=== PATIENT | female | born 1990 | race Caucasian/White ===

== ENCOUNTER 2022-03-29 10:09 | Outpatient (REF) | payer OTHER, SELFPAY ==
[2022-03-29 10:54] LABS: Hematocrit 38.7 % (37.0-47.0); Hemoglobin 12.8 g/dl (12.0-16.0); Mean Corpuscular HGB Conc 33.1 g/dl (31.0-35.0); Mean Corpuscular Volume 96.8 fL (80.0-98.0); Mean Platelet Volume 10.3 fL (9.4-12.3); Platelet Count 318 X10*3/uL (160-400); Red Cell Distribution Width 12.8 % (11.0-16.0); White Blood Count 8.4 X10*3/uL (4.8-10.8)
[2022-03-29 11:25] LABS: Alanine Aminotransferase 9 U/L (0-31); Albumin Level 4.4 g/dL (3.5-5.0); Alkaline Phosphatase 74 U/L (39-117); Anion Gap 13 (12-20); Aspartate Amino Transferase 15 U/L (5-31); Blood Urea Nitrogen 9 mg/dL (9-16); Calcium 9.9 mg/dL (8.4-10.2); Carbon Dioxide 26 mmol/L (22-29); Chloride 106 mmol/L (96-108); Cholesterol 170 mg/dL; Estimated Glomerular Filt Rate > 60; Glucose Fasting 92 mg/dL (60-99); HDL Cholesterol 38 mg/dL; LDL Cholesterol Calculated 117 mg/dl; Potassium 4.7 mmol/L (3.3-5.1); Sodium 140 mmol/L (135-145); Triglycerides 77 mg/dL
[2022-03-29 11:47] LABS: TSH reflex Free T4 1.55 uIU/mL (0.32-4.0)
== END 2022-03-29 10:10 | disposition home or self-care (01) ==
LOC: HO.LAB 10:09
PROVIDERS: Visit Provider Nurse Practitioner Family
DX: F32.A Depression, unspecified (principal); F41.9 Anxiety disorder, unspecified; E78.00 Pure hypercholesterolemia, unspecified; Z76.89 Persons encountering health services in other specified circumstances
CPT/HCPCS: 36415; 80053; 80061; 84443; 85027

== ENCOUNTER 2023-03-22 08:02 | Outpatient (REF) | payer OTHER, SELFPAY ==
[2023-03-22 11:55] LABS: Appearance Urine Clear; Color Urine Yellow; Glucose Urine UA Negative (Negative); Leukocyte Esterase Urine Small (1+) (Negative); Nitrite Urine Negative (Negative); PH 6.5 (5.0-9.0); UMIC TRIGGER UACC YES; Urine Blood Negative (Negative); Urine Ketones Negative (Negative); Urine Protein Negative (Neg-Trace)
[2023-03-22 11:58] LABS: Hematocrit 38.7 % (37.0-47.0); Hemoglobin 12.5 g/dl (12.0-16.0); Mean Corpuscular HGB Conc 32.3 g/dl (31.0-35.0); Mean Corpuscular Hemoglobin 31.2 pg (27.0-33.0); Mean Corpuscular Volume 96.5 fL (80.0-98.0); Mean Platelet Volume 10.4 fL (9.4-12.3); Platelet Count 378 X10*3/uL (160-400); Red Blood Count 4.01 X10*6/uL (4.20-5.50); Red Cell Distribution Width 12.7 % (11.0-16.0); White Blood Count 7.5 X10*3/uL (4.8-10.8)
[2023-03-22 12:04] LABS: Bacteria Urine None Seen (None Seen); Hyaline Casts Urine 0-2 /LPF (0-2); RBC Urine 0-2 /HPF (0-2); Squamous Epithelial Cell Urine 0-2 /HPF (0-2); UACC Culture Trigger YES; WBC Urine 0-5 /HPF (0-5)
[2023-03-22 12:36] LABS: Alanine Aminotransferase 52 U/L (0-31); Albumin Level 4.1 g/dL (3.5-5.0); Alkaline Phosphatase 87 U/L (39-117); Anion Gap 10 (12-20); Aspartate Amino Transferase 27 U/L (5-31); Bilirubin Total 0.7 mg/dL (0.0-1.0); Blood Urea Nitrogen 7 mg/dL (9-16); Calcium 9.6 mg/dL (8.4-10.2); Carbon Dioxide 27 mmol/L (22-29); Chloride 107 mmol/L (96-108); Estimated Glomerular Filt Rate > 60; Glucose Fasting 94 mg/dL (60-99); Potassium 4.3 mmol/L (3.3-5.1); Sodium 140 mmol/L (135-145); TSH reflex Free T4 1.93 uIU/mL (0.32-4.0); Total Protein 6.5 g/dL (6.5-8.0)
== END 2023-03-22 08:03 | disposition home or self-care (01) ==
LOC: HO.HMGCLDS 08:02
PROVIDERS: PCP Physician Assistant; Visit Provider Physician Assistant
DX: Z13.1 Encounter for screening for diabetes mellitus (principal); E66.09 Other obesity due to excess calories; Z68.36 Body mass index [BMI] 36.0-36.9, adult; R30.0 Dysuria; E66.9 Obesity, unspecified; F32.A Depression, unspecified; R53.83 Other fatigue
CPT/HCPCS: 36415; 80053; 81001; 84443; 85027; 87086

== ENCOUNTER 2023-04-01 09:44 | Outpatient (REF) | payer OTHER, SELFPAY ==
[2023-04-01 11:44] LABS: Alanine Aminotransferase 12 U/L (0-31); Alkaline Phosphatase 81 U/L (39-117); Aspartate Amino Transferase 12 U/L (5-31); Bilirubin Direct 0.2 mg/dL (0.0-0.5); Bilirubin Total 0.7 mg/dL (0.0-1.0); Total Protein 6.4 g/dL (6.5-8.0)
== END 2023-04-01 09:45 | disposition home or self-care (01) ==
LOC: HO.HMGCLDS 09:44
PROVIDERS: PCP Physician Assistant; Visit Provider Physician Assistant
DX: R79.89 Other specified abnormal findings of blood chemistry (principal)
CPT/HCPCS: 36415; 80076

== ENCOUNTER 2024-01-01 14:02 | Outpatient (AMB) | payer OTHER, SELFPAY ==
[2024-01-01 14:05] VITALS: BP 112/70; PULSE 75; O2SAT 98; BMI 36.6
--- NOTE | 2024-01-01 14:05 | MHC.PC.OV ---
Vital Signs 01/01/24 14:05 Height 5 ft 7.5 in Weight 237 lb 8 oz BMI 36.6 BP 112/70 Blood Pressure Location Lt brachial Position Sitting Pulse 75 Pulse Source Pulse Oximeter Pulse Oximetry (%) 98 Oxygen Delivery Method Room Air Intake Visit Reasons: Medication follow up College Teacher Required: No Accompanied by: Self / Same As Patient Is last menstrual period known: Yes Last menstrual period: 12/23/23 Allergies hydrocodone Adverse Reaction (Intermediate, Verified 01/01/24 14:23) Upset stomach Medication List - Last Reconciled 01/01/24 by Cade Robledo PA-C bupropion HCl (Wellbutrin XL) 300 mg PO QAM 30 days buspirone 15 mg PO DAILY PRN Tobacco use date assessed: 01/01/24 Dental Screening Dental Screen Date: 01/01/24 Did you have a dental visit in the last 12 months?: Yes Did you have a dental problem in the last 6 months where you did not have access to dental care?: No Was dental information given to patient?: Patient has dentist HPI Medication follow up HPI Details Patient is a 33-year-old female here today for a follow-up visit. Patient has a past medical history significant for anxiety, major depressive disorder, obesity, endometriosis. Concern--> patient reports increase pelvic pain and decreased menstruation over last several months. She is concerned about this and would like to establish with a OBGYN here in [place]. She reports she has been diagnosed with endometriosis many years ago after she had her Essure removed. .. MDD/ XIOMARA: Patient continues on Wellbutrin and buspirone which have been very helpful for her mental health. Obesity: She does understand her BMI is over 30 will work on being more physically active and adapting to better eating habits to reduce her weight. 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 1. Little interest or pleasure in doing things: not at all 2. Feeling down, depressed, or hopeless: not at all 3. Trouble falling or staying asleep, or sleeping too much: not at all 4. Feeling tired or having little energy: not at all 5. Poor appetite or overeating: not at all 6. Feeling bad about yourself - or that you are a failure or have let yourself or your family down: not at all 7. Trouble concentrating on things, such as reading the newspaper or watching television: not at all 8. Moving or speaking so slowly that other people could have noticed. Or the opposite - being so fidgety or restless that you have been moving around a lot more than usual: not at all 9. Thoughts that you would be better off or of hurting yourself in some way: not at all Total score: 0 Depression Screening Interpretation: Negative Depression Screening Done: Yes 46748 - PHQ-9 Billing: Yes Source: Developed by Drs. Isaac Hale, Teagan De La Garza, Zan Herrera and colleagues, with an educational ricky from [employer]. Thrive Questionnaire Date Thrive assessed: 01/01/24 I am a: Patient What is your living situation today?: I have a steady place to live Within the past 12 months, did the food you bought not last and you didn't have the money to get more?: Never true Within the past 12 months, did you worry whether your food would run out before you got money to buy more?: Never true Do you have trouble paying for medicines?: No Do you have trouble getting transportation to medical appointments?: No Do you have trouble paying your heating and electricity bill?: No Do you have trouble taking care of your child, family member or friend?: No Do you have trouble with day-to-day activities such as bathing, preparing meals, shopping, managing finances, etc.?: No Are you currently unemployed and looking for a job?: No Are you interested in more education?: No Please select the resources that you would like help with: None Currently or been in a relationship where the following occur: no concerns reported THRIVE Score: 0 AUDIT C Alcohol Use Questionnaire (AUDIT-C) 1. How often do you have a drink containing alcohol?: Monthly or less 2. How many drinks containing alcohol do you have on a typical day when you are drinking?: 1 or 2 3. How often do you have six or more drinks on one occasion?: Never Total Score: 1 XIOMARA-7 AMB Questionnaire XIOMARA-7 Date XIOMARA - 7 assessed: 01/01/24 Feeling nervous, anxious, or on edge: 0 = Not at all Not being able to stop or control worryin = Not at all Worrying too much about different things: 0 = Not at all Trouble relaxin = Not at all Being so restless that it is hard to sit still: 0 = Not at all Becoming easily annoyed or irritable: 0 = Not at all Feeling afraid as if something awful might happen: 0 = Not at all Total XIOMARA-7 score (0-4 normal; 5-9 mild; 10-14 moderate; 15-21 severe): 0 Source: Developed by Drs. Isaac Hale, Teagan De La Garza, Zan Herrera and colleagues, with an educational ricky from [employer]. XIOMARA-7 Assessment Billing XIOMARA-7 Assessment Tool: XIOMARA-7 Assessment 45528 Review of Systems Const Denies headache(s) Eyes Denies loss of vision ENT Denies vertigo, Denies dizziness, Denies headache(s) and Denies sore throat Card Denies chest pain, Denies leg edema and Denies lightheadedness Resp Denies cough, Denies hemoptysis and Denies wheezing GI Denies abdominal pain, Denies melena, Denies constipation, Denies diarrhea and Denies vomiting Denies urinary frequency, Denies dysuria, Reports pelvic pain and Denies urinary urgency Musc Denies arthralgias, Denies joint swelling, Denies numbness and Denies tingling Neuro Denies Abnormal speech present, Denies behavioral changes, Denies vertigo, Denies dizziness, Denies headache(s), Denies loss of vision, Denies memory loss, Denies numbness and Denies tingling Psych Denies anxiety, Denies behavioral changes, Denies depression, Denies memory loss and Denies panic attacks Howard/Lymph Denies easy bleeding and Denies easy bruising Aller/Immun Denies wheezing Physical exam (Primary Care) Vital Signs: Last Vital Signs Pulse 75 01/01/24 14:05 BP 112/70 01/01/24 14:05 Pulse Ox 98 01/01/24 14:05 Oxygen Delivery Method Room Air 01/01/24 14:05 BMI result Body Mass Index 36.6 BMI Assessment/Plan discussion: High Tobacco/Smoking Status: Tobacco use Status Tobacco use date assessed 01/01/24 01/01/24 14:23 Patient Tobacco Use Status Former Tobacco user 01/01/24 14:06 e-Cigarette/Vaping Use Never Used 01/01/24 14:06 PHQ-9: PHQ-9 Score PHQ-9: Total score 0 01/01/24 14:34 Depression Screening Interpretation: Negative Thrive Assessment: Date of Thrive Assessment Date Thrive assessed 01/01/24 01/01/24 14:24 Currently or been in a relationship where the following occur: no concerns reported Const Other: Obese General: healthy appearing, no acute distress, alert and awake Nutritional Appearance: well nourished Orientation/consciousness: oriented to person, oriented to place and oriented to time HENMT Ears: TM's normal bilaterally General nose exam: Normal nasal mucous membranes and turbinates present Eyes Conjunctivae: conjunctivae normal Sclerae: sclerae normal Pupils: Equal, round and reactive pupils present Neck Neck: Yes no lymphadenopathy and Yes no JVD Thyroid: Thyroid normal Carotids: no bruits Resp Effort & Inspection: normal respiratory effort and not tachypneic Auscultation: no crackles, no rales, no rhonchi and no wheezes Cardio Rate: regular rate Rhythm: regular rhythm Heart sounds: no murmurs and normal S1 and S2 GI Palpation (GI): Soft to palpation, nontender, no hepatomegaly and no splenomegaly Auscultation: normal bowel sounds Skin General skin exam: no rashes or lesions noted and dry skin Neuro General: oriented to person, oriented to place and oriented to time Cranial nerves: Yes Equal, round and reactive pupils present Speech: No Abnormal speech present Gait exam (Neuro): Normal gait present Motor exam (neuro): no tremor noted Extrem Right upper extremity: full ROM Left upper extremity: full ROM Right lower extremity: full ROM; no edema Left lower extremity: full ROM; no edema Psych Mental Status: mental status grossly normal Speech and movement: Normal speech and movement present Affect: normal affect Attitude: cooperative Thought process: Normal thought process present Assessment and Plan Assessment & Plan (1) Endometriosis: Code(s): N80.9 - Endometriosis, unspecified Plan: Reports she was diagnosed with endometriosis many years ago after having her Essure removed. Reports recently having decreased menstruation and pelvic plain as of lately. She would like to see an new OBGYN here in [place] (2) Obese: Code(s): E66.9 - Obesity, unspecified Qualifiers: Body mass index: BMI 36.0-36.9 Obesity classification: adult class 2 (BMI 35 - 39.9) Obesity type: due to excess calories Serious obesity comorbidity presence: without serious comorbidity Qualified Code(s): E66.09 - Other obesity due to excess calories; Z68.36 - Body mass index [BMI] 36.0-36.9, adult Plan: Patient does understand her BMI is above 30 and will work on being more physically active and adapt to better eating habits to reduce her weight (3) MDD (major depressive disorder), recurrent episode, moderate: Code(s): F33.1 - Major depressive disorder, recurrent, moderate Plan: Patient's depression well controlled with current medication. (4) XIOMARA (generalized anxiety disorder): Code(s): F41.1 - Generalized anxiety disorder Plan: Patient reports her anxiety has been well controlled with current medication. (5) Pelvic pain: Code(s): R10.2 - Pelvic and perineal pain Plan: Above may be related to endometriosis. Orders: Orders Complete Blood Count no Diff 01/01/24 N80.9 - Endometriosis, unspecified, R10.2 - Pelvic and perineal pain Comprehensive [place]. Panel Fast 01/01/24 Z13.1 - Encounter for screening for diabetes mellitus Referrals BUTCHER'S ASSISTANT Referral N80.9 - Endometriosis, unspecified Coding Level of Care Code Est Pt Level 4 (55744) Diagnoses Endometriosis N80.9 Class 2 obesity due to excess calories without serious comorbidity with body mass index (BMI) of 36.0 to 36.9 in adult E66.09; Z68.36 Body mass index: BMI 36.0-36.9 Obesity classification: adult class 2 (BMI 35 - 39.9) Obesity type: due to excess calories Serious obesity comorbidity presence: without serious comorbidity MDD (major depressive disorder), recurrent episode, moderate F33.1 XIOMARA (generalized anxiety disorder) F41.1 Pelvic pain R10.2 Additional Codes XIOMARA-7 Assessment Billing - XIOMARA-7 Assessment Tool: XIOMARA-7 Assessment [id number] ([id number])
== END 2024-01-01 14:39 | disposition home or self-care (01) ==
PROVIDERS: PCP Physician Assistant; Visit Provider Physician Assistant
DX: F33.1 Major depressive disorder, recurrent, moderate (principal); N80.9 Endometriosis, unspecified; E66.09 Other obesity due to excess calories; Z68.36 Body mass index [BMI] 36.0-36.9, adult; F41.1 Generalized anxiety disorder; R10.2 Pelvic and perineal pain
CPT/HCPCS: 99214

== ENCOUNTER 2024-02-12 08:43 | Outpatient (AMB) | payer OTHER, SELFPAY ==
--- NOTE | 2024-02-12 08:53 | MHC.OFFVIS ---
Intake Vital Signs 02/12/24 08:54 Height 5 ft 7.5 in Weight 235 lb 14.314 oz BMI 36.4 BP 120/78 Intake Visit Reasons: endometriosis/PCP Referral Intake Note: painful menses Care Program Director Required: No Information Interpreted: non-clinical & clinical Lieutenant Ballistics: Lieutenant Ballistics Present (Liana TITUS) Accompanied by: Spouse Allergies hydrocodone Adverse Reaction (Intermediate, Verified 02/12/24 08:56) Upset stomach Is last menstrual period known: Yes Last menstrual period: 01/28/24 HPI HPI Comments History of Present Illness Details Presenting complaining of 11 year history of left lower quadrant pain constant most of the day almost every day, exacerbates 2 weeks prior to the menstrual cycles and gets better afterwards. The pain started few months after Essure procedure in 2012, the patient was prescribed continuous control pills for 6 months but was taken off of it because of headaches, of note there was no improvement in the pelvic pain. CT scan done in an outside facility showed a left adnexal linear hyperechoic echogenic part next to the adnexa will be part of Essure device versus adnexal calcification. The patient has been having nausea continuously and was sent to GI by her OBGYN had an upper and lower endoscopy and the workup was negative [facility] Medical History Endometriosis Sigmoid diverticulosis Surgical History No pertinent past surgical history Family History Paternal Grandmother Colon cancer Social History Household Members: Spouse and Children Housing: House (town house) Alcohol intake: current Alcohol intake frequency: holidays/special occasions only Patient Tobacco Use Status: Former Tobacco user Quit Date: 13 years ago e-Cigarette/Vaping Use: Never Used Second Hand Smoke Exposure: No service: No 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) Sexual orientation: Straight/Heterosexual Gender identity: Female Cognitive needs: No Hearing needs: No Vision needs: Yes (glasses) Female Reproductive History Menstrual Date of last menstrual period: 01/28/24 control method: none Total pregnancies: 2 Full term: 2 Number of Living Children: 2 Review of Systems Const All systems reviewed & are unremarkable except as noted in HPI and below Physical Exam Vital Signs: Last Vital Signs BP 120/78 02/12/24 08:54 BMI result Body Mass Index 36.4 GI Inspection: Yes normal to inspection Palpation (GI): Soft to palpation and nontender General: Yes no CVA tenderness External Female Exam: normal external appearance and normal appearance of the urethra Speculum Exam - Vagina: normal appearance of the vagina, normal palpation, no lesions and no masses Speculum Exam - Cervix: normal appearance of the cervix, normal palpation, no lesions, no masses and nontender Bimanual exam- vagina & uterus: normal bimanual exam, normal palpation, uterine size normal, normal palpation, uterine shape normal, No Cervical tenderness present and non-tender Bimanual Exam- Adnexa, other: normal adnexae Back/Spine/Pelvis Back: no CVA tenderness Assessment & Plan Assessment & Plan (1) Pelvic pain: Comment: History of Essure in 2012 Possible endometriosis Code(s): R10.2 - Pelvic and perineal pain Plan: Urine dip and test done in the office were both negative. GC and chlamydia taken and CT scan of pelvis with and without contrast ordered. Discussed with the patient the differential diagnosis of pelvic pain including but not limited to adnexal, uterine masses, pelvic infections (PID), GI the (Irritable bowel syndrome, diverticulitis, others), musculoskeletal, myofascial pain abdominal wall , adhesions, endometriosis, Essure related pain, or psychological and others causes. Instructed the patient to schedule follow-up appointment in 2 weeks. All questions answered, the patient verbalized understanding Orders: Orders CT NG by PCR Today R10.2 - Pelvic and perineal pain CT abdomen pelvis wo/w IV con Today R10.2 - Pelvic and perineal pain Coding Level of Care Code New Pt Level 3 (40428) Diagnoses Pelvic pain R10.2
[2024-02-12 08:54] VITALS: BP 120/78; BMI 36.4
== END 2024-02-12 09:28 | disposition home or self-care (01) ==
PROVIDERS: PCP Physician Assistant; Visit Provider Obstetrics & Gynecology
DX: R10.2 Pelvic and perineal pain (principal); Z32.02 Encounter for pregnancy test, result negative
CPT/HCPCS: 99203

== ENCOUNTER 2024-02-12 08:43 | Outpatient (REF) | payer OTHER, SELFPAY ==
[2024-02-12 15:04] LABS: CT PCR NOT DETECTED (Not Detect.); NG PCR NOT DETECTED (Not Detect.)
== END 2024-02-12 08:44 | disposition home or self-care (01) ==
LOC: HO.LNP 08:43
PROVIDERS: PCP Physician Assistant; Visit Provider Obstetrics & Gynecology
DX: R10.2 Pelvic and perineal pain (principal)
CPT/HCPCS: 0353U; 81002; 81025; 99202

== ENCOUNTER 2024-02-19 13:57 | Outpatient (REF) | payer OTHER, SELFPAY | END 2024-02-19 13:58 | disposition home or self-care (01) | LOC: HO.LNP 13:57 | PROVIDERS: Visit Provider Obstetrics & Gynecology | DX: Z13.89 Encounter for screening for other disorder (principal) ==

== ENCOUNTER 2024-03-24 07:37 | Outpatient (REF) | payer OTHER, SELFPAY ==
[2024-03-24 10:50] LABS: Blood Urea Nitrogen 8 mg/dL (9-16); Estimated Glomerular Filt Rate > 60
== END 2024-03-24 07:38 | disposition home or self-care (01) ==
LOC: HO.HMGCLDS 07:37
PROVIDERS: PCP Physician Assistant; Visit Provider Obstetrics & Gynecology
DX: R10.2 Pelvic and perineal pain (principal)
CPT/HCPCS: 36415; 82565; 84520

== ENCOUNTER 2024-04-02 13:50 | Outpatient (REF) | payer OTHER, SELFPAY ==
--- NOTE | ~2024-04-02 | CT_ITS ---
EXAMINATION: CT ABDOMEN AND PELVIS WITH CONTRAST CLINICAL INFORMATION: Pelvic and perineal pain. COMPARISON: None available. TECHNIQUE: Multidetector volumetric images were obtained from the superior aspect of the liver through the pubic symphysis following administration 85 mL of Omnipaque 350 intravenous contrast. Sagittal and coronal reformatted images were obtained on the technologist's workstation. Oral contrast: Yes This CT examination was performed using dose optimization techniques as appropriate, variously including the following: *Automated exposure control *Adjustment of mA and/or kV according to patient size (this includes techniques or standardized protocols for targeted exams where dose is matched to indication/reason for exam; i.e. extremities or head) *Use of iterative reconstruction technique DLP: 816 mGy-cm FINDINGS: LUNG BASES: The visualized lung bases are unremarkable. LIVER, GALLBLADDER, AND BILIARY TREE: The liver is normal in size, shape, and attenuation. No focal hepatic lesion or biliary ductal dilatation is present. The gallbladder is unremarkable with no evidence of radiopaque gallstones, gallbladder wall thickening, or obvious pericholecystic inflammatory changes. PANCREAS: No discrete pancreatic mass or pancreatic ductal dilatation. SPLEEN: Normal. ADRENAL GLANDS: No adrenal mass. KIDNEYS AND URETERS: The kidneys are normal in size, shape, and attenuation. No hydronephrosis, hydroureter, or calculi seen. No perinephric stranding. Exophytic simple cyst from the lower pole left kidney for which no imaging follow-up is recommended. BLADDER: Unremarkable. GASTROINTESTINAL TRACT: The small and large bowel are normal in caliber. The appendix appears normal. Moderate sigmoid diverticulosis. No evidence of acute diverticulitis. ABDOMINAL WALL: Small fat-containing umbilical hernia. LYMPH NODES: No lymphadenopathy. VASCULAR: No aortic aneurysm. PELVIC VISCERA: Bilaterally Essure devices. OSSEOUS STRUCTURES: No suspicious osseous lesions. CT/CT abdomen pelvis w IV con IMPRESSION: Moderate sigmoid colonic diverticulosis without evidence of acute diverticulitis.
[2024-04-02] MEDS: iohexoL 350 MG/ML 100 ML INFUS..BTL 85 ML IV (16:44)
[2024-04-02] MEDS: Barium Sulfate Oral (Vanilla) 450 ML ORAL.SUSP 900 ML PO (16:45)
== END 2024-04-02 13:51 | disposition home or self-care (01) ==
LOC: HO.CT 13:50
PROVIDERS: PCP Physician Assistant; Visit Provider Obstetrics & Gynecology
DX: R10.2 Pelvic and perineal pain (principal)
CPT/HCPCS: 74177; Q9967

== ENCOUNTER 2024-04-22 09:09 | Outpatient (AMB) | payer OTHER, SELFPAY ==
--- NOTE | 2024-04-22 09:21 | MHC.OFFVIS ---
Vital Signs 04/22/24 09:23 Height 5 ft 7.5 in Weight 235 lb 14.314 oz BMI 36.4 BP 120/70 Intake Visit Reasons: ct scan results Contract Project Manager Required: No Information Interpreted: non-clinical & clinical Accompanied by: Spouse Allergies hydrocodone Adverse Reaction (Intermediate, Verified 04/22/24 09:27) Upset stomach Is last menstrual period known: Yes Last menstrual period: 04/22/24 HPI Comments Details: Presenting for follow-up post CT scan . The patient gives a history of 11 year history of left lower quadrant pain constant most of the day almost every day, it exacerbates 2 weeks prior to the menstrual cycles and gets better afterwards. The pain started few months after Essure procedure in 2012, the patient was prescribed continuous control pills for 6 months but was taken off of it because of headaches,; Of note, there was no improvement in the pelvic pain. CT scan done in an outside facility showed a left adnexal linear hyperechoic echogenic part next to the adnexa ? part of Essure device versus adnexal calcification. The patient has been having nausea continuously and was sent to GI had an upper and lower endoscopy and the workup was negative. CT scan done recently showed the following: PELVIC VISCERA: Bilaterally Essure devices. IMPRESSION: Moderate sigmoid colonic diverticulosis without evidence of acute diverticulitis. 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) Sexual orientation: Straight/Heterosexual Gender identity: Female Cognitive needs: No Hearing needs: No Vision needs: Yes (glasses) Female Reproductive History Menstrual Date of last menstrual period: 04/22/24 Review of Systems Const All systems reviewed & are unremarkable except as noted in HPI and below Reports as per HPI and Reports no additional complaints GI Reports no additional complaints Reports no additional complaints Physical Exam Vital Signs: Last Vital Signs BP 120/70 04/22/24 09:23 BMI result Body Mass Index 36.4 Assessment & Plan Assessment & Plan (1) Pelvic pain: Comment: History of Essure in 2012 Code(s): R10.2 - Pelvic and perineal pain Category: Medical Plan: Discussed with the patient the findings on CT scan showing bilateral Essure in place with no evidence of perforation or displacement. Discussed with the patient that pelvic pain has been reported post Essure insertion in around 4% of patients even with no evidence of displacement or perforation. Options of treatment for Essure removal include laparoscopic bilateral salpingectomy, salpingostomy , cornuectomy, or hysterectomy. Will refer to [facility], at a tertiary care center where more resources and higher level of care is available and needed in this patient's clinical situation. All questions answered, the patient verbalized understanding. Instructed the patient to call our office back in case a referral appointment is not scheduled, missed or canceled so that we will assist on rescheduling another appointment, the patient verbalized understanding agreed with the plan. Coding Level of Care Code Est Pt Level 3 (05231) Diagnoses Pelvic pain R10.2
[2024-04-22 09:23] VITALS: BP 120/70; BMI 36.4
== END 2024-04-22 09:42 | disposition home or self-care (01) ==
LOC: HO.HWS 09:09
PROVIDERS: PCP Physician Assistant; Visit Provider Obstetrics & Gynecology
DX: R10.2 Pelvic and perineal pain (principal)
CPT/HCPCS: 99213

== ENCOUNTER → 2024-04-22 09:09 | Outpatient (BNVA) | payer OTHER, SELFPAY | PROVIDERS: PCP Physician Assistant; Visit Provider Obstetrics & Gynecology | DX: R10.2 Pelvic and perineal pain (principal) | CPT/HCPCS: 99212 ==

== ENCOUNTER 2024-05-20 14:17 | Outpatient (AMB) | payer OTHER, SELFPAY ==
[2024-05-20 14:30] VITALS: BP 106/76; PULSE 80; O2SAT 96; BMI 37.7
--- NOTE | 2024-05-20 14:30 | MHC.PC.OV ---
Vital Signs 05/20/24 14:30 Height 5 ft 7.5 in Weight 244 lb 2 oz BMI 37.7 BP 106/76 Blood Pressure Location Lt brachial Position Sitting Pulse 80 Pulse Source Pulse Oximeter Pulse Oximetry (%) 96 Oxygen Delivery Method Room Air Intake Visit Reasons: PE Intake Note: Patient is here today for a physical. 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 Patient has a past medical history significant for anxiety, major depressive disorder, obesity, endometriosis. Concern--> continues to have chronic pelvic pain. Has seen [place] court operations clerk and has been referred to [facility] for essure removal. She does report during her menstrual periods she does get very nauseous and would like a medication to use as needed for nausea. .. MDD/ XIOMARA: Patient continues on Wellbutrin and buspirone which have been very helpful for her mental health. Obesity: She does understand her BMI is over 30 will work on being more physically active and adapting to better eating habits to reduce her weight. Vaccines: UTD woth COVID vaccine, Declines flu , Need Tdap Guest Services Coordinator: Followed by court operations clerk here in [place]- Has been reffered to [facility]. 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 Isaac Hale, Teagan De La Garza, Zan Herrera and colleagues, with an educational ricky from [employer]. Review of Systems Const Denies body aches, Denies chills, Denies excessive sweating, Denies fatigue, Denies fever(s) and Denies headache(s) Eyes Denies blurry vision ENT Denies dysphagia, Denies vertigo, Denies dizziness, Denies headache(s), Denies hearing loss and Denies tinnitus Card Denies chest pain, Denies chest pain with activity, Denies syncope, Denies irregular heart rhythm and Denies dyspnea Resp Denies chest congestion, Denies cough, Denies hemoptysis, Denies dyspnea and Denies wheezing GI Denies abdominal pain, Denies melena, Denies hematochezia, Denies coffee ground emesis, Denies dysphagia, Denies diarrhea, Denies nausea and Denies vomiting Details: + pelvic pain Denies urinary frequency, Denies dysuria, Reports pelvic pain, Denies urinary hesitancy and Denies urinary urgency Musc Denies arthralgias, Denies limited range of motion, Denies muscle cramps and Denies muscle weakness Skin/Breast Denies rash and Denies skin ulcer Neuro Denies Abnormal speech present, Denies confusion, Denies vertigo, Denies dizziness, Denies syncope, Denies headache(s), Denies memory loss and Denies seizure-like activity Psych Denies anxiety, Denies confusion, Denies depression, Denies memory loss, Denies panic attacks and Denies paranoia Endo Denies excessive sweating, Denies fatigue, Denies flushing, Denies polydipsia and Denies polyuria Aller/Immun Denies wheezing Physical exam (Primary Care) Vital Signs: Last Vital Signs Pulse 80 05/20/24 14:30 BP 106/76 05/20/24 14:30 Pulse Ox 96 05/20/24 14:30 Oxygen Delivery Method Room Air 05/20/24 14:30 BMI result Body Mass Index 37.7 BMI Assessment/Plan discussion: High BMI High, discussed plan: lifestyle, weight reduction, dietary and physical activity Tobacco/Smoking Status: Tobacco use Status Tobacco use date assessed 01/01/24 05/20/24 14:31 Patient Tobacco Use Status Former Tobacco user 05/20/24 14:47 e-Cigarette/Vaping Use Never Used 05/20/24 14:47 Thrive Assessment: Date of Thrive Assessment Date Thrive assessed 01/01/24 05/20/24 14:31 Const General: cooperative, comfortable, no acute distress, alert and awake; No confusion Orientation/consciousness: oriented to person, oriented to place, patient oriented x3 and No confusion HENMT Head: Yes normocephalic Ears: external ears normal and TM's normal bilaterally Face and sinus: No sinus tenderness Mouth: Normal oral and palatal mucosa present and tongue normal Teeth and gingiva: dentition normal and gingiva normal Throat: Yes posterior oropharynx normal, Yes tonsils normal and Yes uvula midline Eyes Conjunctivae: conjunctivae normal Sclerae: sclerae normal Pupils: Equal, round and reactive pupils present EOM: EOMs intact bilaterally Direct Ophthalmoscopy: No no photophobia Neck Neck: Yes no lymphadenopathy, No tender and Yes no JVD Thyroid: Thyroid normal Carotids: no bruits Chest Chest palpation & inspection: no tenderness Resp Effort & Inspection: normal respiratory effort, no audible wheezes, not labored and no stridor Auscultation: no crackles, no rales, no rhonchi and no wheezes Cardio Jugular venous distension: no JVD Rate: regular rate, not bradycardic and not tachycardic Rhythm: regular rhythm Bruits: no carotid bruits Peripheral pulses: Peripheral pulses 2+ throughout GI Inspection: Yes normal to inspection, No abdominal wall ecchymosis and No visible herniation Palpation (GI): Soft to palpation, nontender, no guarding, not rigid and No hepatosplenomegaly present Auscultation: normoactive bowel sounds General: Yes no CVA tenderness Back/Spine/Pelvis Back: no CVA tenderness and No back tenderness Cervical Spine: cervical ROM normal Thoracic/Lumbar Spine: thoracic and lumbar spine normal to inspection, straight leg raise negative bilaterally, No thoraco-lumbar ROM limited and No lumbar spinal tenderness Skin Lesions: no lesions Rashes: no rashes Wounds: no wounds Neuro General: oriented to person, oriented to place, patient oriented x3, CN's II-XI intact bilaterally and No confusion Cranial nerves: Yes Equal, round and reactive pupils present and Yes Normal accommodation reflex present Cognition (Neuro): normal cognition Speech: No Abnormal speech present Gait exam (Neuro): Normal gait present Motor exam (neuro): 5/5 motor strength present throughout Extrem Right upper extremity: full ROM; no cyanosis Left upper extremity: full ROM; no cyanosis Right lower extremity: no edema Left lower extremity: no edema Psych Appearance: grossly normal Mental Status: mental status grossly normal Affect: normal affect Attitude: cooperative Thought process: Normal thought process present Assessment and Plan Assessment & Plan (1) Annual physical exam: Code(s): Z00.00 - Encounter for general adult medical examination without abnormal findings (2) Endometriosis: Code(s): N80.9 - Endometriosis, unspecified Plan: Reports she was diagnosed with endometriosis many years ago after having her Essure removed. . (3) Obese: Code(s): E66.9 - Obesity, unspecified Qualifiers: Body mass index: BMI 37.0-37.9 Obesity classification: adult class 2 (BMI 35 - 39.9) Obesity type: due to excess calories Serious obesity comorbidity presence: without serious comorbidity Qualified Code(s): E66.09 - Other obesity due to excess calories; Z68.37 - Body mass index [BMI] 37.0-37.9, adult Plan: Patient does understand her BMI is above 30 and will work on being more physically active and adapt to better eating habits to reduce her weight (4) MDD (major depressive disorder), recurrent episode, moderate: Code(s): F33.1 - Major depressive disorder, recurrent, moderate Plan: Patient's depression well controlled with current medication. (5) XIOMARA (generalized anxiety disorder): Code(s): F41.1 - Generalized anxiety disorder Plan: Patient reports her anxiety has been well controlled with current medication. (6) Pelvic pain: Comment: History of Essure in 2012 Code(s): R10.2 - Pelvic and perineal pain Plan: Above may be related to endometriosis. Has been referred to [facility] court operations clerk for possible Essure removal (7) Nausea: Code(s): R11.0 - Nausea Plan: She does report having nausea around her menses. Would like a antinausea medication to use as needed. Will send in ondansetron 8 mg to use on a p.r.n. basis Medications: New ondansetron 8 mg PO Q12H 10 days PRN 20 tabs 0RF nausea and vomiting R11.0 - Nausea Refilled buspirone 15 mg PO DAILY PRN 90 tabs 1RF anxiety F41.1 - Generalized anxiety disorder Coding Level of Care Code Est Pt Prev Care 18-39y(83213) Diagnoses Annual physical exam Z00.00 Endometriosis N80.9 Class 2 obesity due to excess calories without serious comorbidity with body mass index (BMI) of 37.0 to 37.9 in adult E66.09; Z68.37 Body mass index: BMI 37.0-37.9 Obesity classification: adult class 2 (BMI 35 - 39.9) Obesity type: due to excess calories Serious obesity comorbidity presence: without serious comorbidity MDD (major depressive disorder), recurrent episode, moderate F33.1 XIOMARA (generalized anxiety disorder) F41.1 Pelvic pain R10.2 Nausea R11.0
== END 2024-05-20 14:55 | disposition home or self-care (01) ==
PROVIDERS: PCP Physician Assistant; Visit Provider Physician Assistant
DX: Z00.00 Encounter for general adult medical examination without abnormal findings (principal); F33.1 Major depressive disorder, recurrent, moderate; Z68.37 Body mass index [BMI] 37.0-37.9, adult; E66.09 Other obesity due to excess calories; N80.9 Endometriosis, unspecified; F41.1 Generalized anxiety disorder; R10.2 Pelvic and perineal pain; R11.0 Nausea
CPT/HCPCS: 99395

== ENCOUNTER 2024-05-21 08:09 | Outpatient (REF) | payer OTHER, SELFPAY ==
[2024-05-21 11:44] LABS: Hematocrit 38.5 % (37.0-47.0); Hemoglobin 12.9 g/dl (12.0-16.0); Mean Corpuscular HGB Conc 33.5 g/dl (31.0-35.0); Mean Corpuscular Hemoglobin 32.4 pg (27.0-33.0); Mean Corpuscular Volume 96.7 fL (80.0-98.0); Mean Platelet Volume 10.1 fL (9.4-12.3); Platelet Count 363 X10*3/uL (160-400); Red Blood Count 3.98 X10*6/uL (4.20-5.50); Red Cell Distribution Width 13.1 % (11.0-16.0); White Blood Count 8.5 X10*3/uL (4.8-10.8)
[2024-05-21 12:03] LABS: Alanine Aminotransferase 15 U/L (0-31); Albumin Level 4.2 g/dL (3.5-5.0); Alkaline Phosphatase 86 U/L (39-117); Anion Gap 11 (12-20); Aspartate Amino Transferase 15 U/L (5-31); Bilirubin Total 0.6 mg/dL (0.0-1.0); Blood Urea Nitrogen 9 mg/dL (9-16); Calcium 9.6 mg/dL (8.4-10.2); Carbon Dioxide 26 mmol/L (22-29); Chloride 108 mmol/L (96-108); Estimated Glomerular Filt Rate > 60; Glucose Fasting 96 mg/dL (60-99); Potassium 4.2 mmol/L (3.3-5.1); Sodium 141 mmol/L (135-145); Total Protein 7.1 g/dL (6.5-8.0)
== END 2024-05-21 08:10 | disposition home or self-care (01) ==
LOC: HO.HMGCLDS 08:09
PROVIDERS: PCP Physician Assistant; Visit Provider Physician Assistant
DX: N80.9 Endometriosis, unspecified (principal); R10.2 Pelvic and perineal pain; Z13.1 Encounter for screening for diabetes mellitus
CPT/HCPCS: 36415; 80053; 85027

== ENCOUNTER 2024-12-28 10:55 | Outpatient (AMB) | payer OTHER, SELFPAY ==
[2024-12-28 11:13] VITALS: BP 104/78; BMI 38.0
--- NOTE | 2024-12-28 11:13 | A.OFFPC_ITS ---
Vital Signs 12/28/24 11:13 Height 5 ft 7.5 in Weight 246 lb BMI 38.0 BP 104/78 Blood Pressure Location Lt brachial Position Sitting Intake Visit Reasons: Med Review Intake Note: Patient is here for a medication review prescribed by Psychiatry and requires the [facility] program medical form to be completed. Primary Clinician Required: No Accompanied by: Self / Same As Patient Allergies hydrocodone Adverse Reaction (Intermediate, Verified 12/28/24 11:29) Upset stomach Medication List - Last Reconciled 12/28/24 by Cade Robledo PA-C bupropion HCl XL (Wellbutrin XL) 300 mg PO QAM 30 days buspirone 15 mg PO DAILY PRN clonidine HCl 0.2 mg PO BEDTIME gabapentin 300 mg PO TID ondansetron 8 mg PO Q12H PRN 10 days Tobacco use date assessed: 12/28/24 Dental Screening Dental Screen Date: 12/28/24 Did you have a dental visit in the last 12 months?: Yes Did you have a dental problem in the last 6 months where you did not have access to dental care?: No Was dental information given to patient?: Patient has dentist HPI Med Review HPI Details Patient is a 33-year-old female here today for a follow-up visit Patient has a past medical history significant for anxiety, major depressive disorder, obesity, endometriosis. She mentioned she will be possibly moving out of state due to reasons. Recently established care with a psychiatrist whom diagnosed her with ADHD and started gabapentin and clonidine. Unfortunately she has side effects to gabapentin and clonidine. She is interested in trying a new ADHD medication. Endometriosis: Has had a full hysterectomy with a partial oophorectomy. She reports she has been doing well as far as her pelvic pain though has noted some hormonal changes and will like hormones to be checked. .. MDD/ XIOMARA: Patient continues on Wellbutrin and buspirone which have been very helpful for her mental health. Obesity: She does understand her BMI is over 30 will work on being more physically active and adapting to better eating habits to reduce her weight. 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 1. Little interest or pleasure in doing things: not at all 2. Feeling down, depressed, or hopeless: not at all 3. Trouble falling or staying asleep, or sleeping too much: not at all 4. Feeling tired or having little energy: not at all 5. Poor appetite or overeating: not at all 6. Feeling bad about yourself - or that you are a failure or have let yourself or your family down: not at all 7. Trouble concentrating on things, such as reading the newspaper or watching television: not at all 8. Moving or speaking so slowly that other people could have noticed. Or the opposite - being so fidgety or restless that you have been moving around a lot more than usual: not at all 9. Thoughts that you would be better off or of hurting yourself in some way: not at all Total score: 0 Depression Screening Interpretation: Negative Depression Screening Done: Yes 75514 - PHQ-9 Billing: Yes Source: Developed by Drs. Isaac Hale, Teagan De La Garza, Zan Herrera and colleagues, with an educational ricky from [employer]. Thrive Questionnaire Date Thrive assessed: 12/28/24 I am a: Patient What is your living situation today?: I have a steady place to live Within the past 12 months, did the food you bought not last and you didn't have the money to get more?: Never true Within the past 12 months, did you worry whether your food would run out before you got money to buy more?: Never true Do you have trouble paying for medicines?: No Do you have trouble getting transportation to medical appointments?: No Do you have trouble paying your heating and electricity bill?: No Do you have trouble taking care of your child, family member or friend?: No Do you have trouble with day-to-day activities such as bathing, preparing meals, shopping, managing finances, etc.?: No Are you currently unemployed and looking for a job?: No Are you interested in more education?: No Please select the resources that you would like help with: None Currently or been in a relationship where the following occur: No concerns reported THRIVE Score: 0 AUDIT C Alcohol Use Questionnaire (AUDIT-C) 1. How often do you have a drink containing alcohol?: Monthly or less 2. How many drinks containing alcohol do you have on a typical day when you are drinking?: 1 or 2 3. How often do you have six or more drinks on one occasion?: Never Total Score: 1 XIOMARA-7 AMB Questionnaire XIOMARA-7 Date XIOMARA - 7 assessed: 12/28/24 Feeling nervous, anxious, or on edge: 2 = More than half the days Not being able to stop or control worryin = More than half the days Worrying too much about different things: 2 = More than half the days Trouble relaxin = Nearly every day Being so restless that it is hard to sit still: 2 = More than half the days Becoming easily annoyed or irritable: 1 = Several days Feeling afraid as if something awful might happen: 0 = Not at all Total XIOMARA-7 score (0-4 normal; 5-9 mild; 10-14 moderate; 15-21 severe): 12 Source: Developed by Drs. Isaac Hale, Teagan De La Garza, Zan Herrera and colleagues, with an educational ricky from [employer]. XIOMARA-7 Assessment Billing XIOMARA-7 Assessment Tool: XIOMARA-7 Assessment 83301 Review of Systems Const Denies headache(s) Eyes Denies loss of vision ENT Denies vertigo, Denies dizziness, Denies headache(s) and Denies sore throat Card Denies chest pain, Denies leg edema and Denies lightheadedness Resp Denies cough, Denies hemoptysis and Denies wheezing GI Denies abdominal pain, Denies melena, Denies constipation, Denies diarrhea and Denies vomiting Denies urinary frequency, Denies dysuria and Denies urinary urgency Musc Denies arthralgias, Denies joint swelling, Denies numbness and Denies tingling Neuro Denies Abnormal speech present, Denies behavioral changes, Denies vertigo, Polo es dizziness, Denies headache(s), Denies loss of vision, Denies memory loss, Denies numbness and Denies tingling Psych Denies anxiety, Denies behavioral changes, Denies depression, Denies memory loss and Denies panic attacks Howard/Lymph Denies easy bleeding and Denies easy bruising Aller/Immun Denies wheezing Physical exam (Primary Care) Vital Signs: Last Vital Signs BP 104/78 12/28/24 11:13 BMI result Body Mass Index 38.0 Tobacco/Smoking Status: Tobacco use Status Tobacco use date assessed 12/28/24 12/28/24 11:26 Patient Tobacco Use Status Former Tobacco user 12/28/24 11:19 e-Cigarette/Vaping Use Never Used 12/28/24 11:19 PHQ-9: PHQ-9 Score PHQ-9: Total score 0 12/28/24 14:21 Depression Screening Interpretation: Negative Thrive Assessment: Date of Thrive Assessment Date Thrive assessed 12/28/24 12/28/24 11:19 Currently or been in a relationship where the following occur: No concerns reported Const General: healthy appearing, no acute distress, alert and awake Nutritional Appearance: well nourished Orientation/consciousness: oriented to person, oriented to place and oriented to time HENMT Ears: TM's normal bilaterally General nose exam: Normal nasal mucous membranes and turbinates present Eyes Conjunctivae: conjunctivae normal Sclerae: sclerae normal Pupils: Equal, round and reactive pupils present Neck Neck: Yes no lymphadenopathy and Yes no JVD Thyroid: Thyroid normal Carotids: no bruits Resp Effort & Inspection: normal respiratory effort and not tachypneic Auscultation: no crackles, no rales, no rhonchi and no wheezes Cardio Rate: regular rate Rhythm: regular rhythm Heart sounds: no murmurs and normal S1 and S2 GI Palpation (GI): Soft to palpation, nontender, no hepatomegaly and no splenomegaly Auscultation: normal bowel sounds Skin General skin exam: no rashes or lesions noted and dry skin Neuro General: oriented to person, oriented to place and oriented to time Cranial nerves: Yes Equal, round and reactive pupils present Speech: No Abnormal speech present Gait exam (Neuro): Normal gait present Motor exam (neuro): no tremor noted Extrem Right upper extremity: full ROM Left upper extremity: full ROM Right lower extremity: full ROM; no edema Left lower extremity: full ROM; no edema Psych Mental Status: mental status grossly normal Speech and movement: Normal speech and movement present Affect: normal affect Attitude: cooperative Thought process: Normal thought process present Office Procedures Flu Questionnaire Does the patient have a severe egg allergy?: No Does the patient have severe life threatening allergies?: No Does the patient have a fever or illness today?: No Has the patient ever had Guillain-Gleason Syndrome?: No Has the patient ever had any past reaction to a flu shot?: No Immunizations Fluarix Triv [id number] (PF) 45 mcg (15 mcg x 3)/0.5 mL IM syringe Performing Provider: Cade Robledo PA-C [facility] Administered by: FARAZ Garya on 12/28/24 11:27 Dose Route Admin Location Dispensed Lot Number Expiration Date NDC Laminating Machine Operator 0.5 mL IM Left Deltoid 0.5 mL [id number] 05/24/25 [id number] VIS Given Date VIS Provided VIS Publication Date 12/28/24 Single Vaccine 21 Eligibility Eligibility Date Funding Source Not [facility] Eligible 12/28/24 Private Coding Level of Care Code Est Pt Level 4 (23147) Diagnoses MDD (major depressive disorder), recurrent episode, moderate F33.1 Attention deficit hyperactivity disorder (ADHD), predominantly inattentive type F90.0 Attention deficit-hyperactivity disorder type: predominantly inattentive XIOMARA (generalized anxiety disorder) F41.1 Endometriosis N80.9 Additional Codes XIOMARA-7 Assessment Billing - XIOMARA-7 Assessment Tool: XIOMARA-7 Assessment 21150 ([id number]) PHQ-9 - 72735 - PHQ-9 Billing: Yes ([id number]) Assessment & Plan Assessment & Plan (1) MDD (major depressive disorder), recurrent episode, moderate: Code(s): F33.1 - Major depressive disorder, recurrent, moderate Category: Medical Plan: Patient's PHQ-9 score 0, has a history major depressive disorder though has been well managed with Wellbutrin 300. She is speaking with a mental health therapist and has establish care with a psychiatrist. (2) ADHD: Code(s): F90.9 - Attention-deficit hyperactivity disorder, unspecified type Category: Medical Qualifiers: Attention deficit-hyperactivity disorder type: predominantly inattentive Qualified Code(s): F90.0 - Attention-deficit hyperactivity disorder, predominantly inattentive type Plan: Patient has followed up with a psychiatrist and underwent clinical evaluation for ADHD and was diagnosed with ADHD diagnosis. Was started on gabapentin and clonidine though has had intolerable side effects of this medication. She is interested in starting new ADHD medication as she continues to difficulties with the attention and focus on her activities of daily living (3) XIOMARA (generalized anxiety disorder): Code(s): F41.1 - Generalized anxiety disorder Category: Medical Plan: Patient's XIOMARA-7 score positive for anxiety which has been existing condition for her. She continues with buspirone with good effect. (4) Endometriosis: Code(s): N80.9 - Endometriosis, unspecified Category: Medical Plan: As per HPI patient underwent a full hysterectomy and a partial oophorectomy in the fall of 2023. She reports she is doing well though has some sequelae of which she believes is a hormonal issue (course facial hair, hot flashes ect..) . She would like her hormones checked Orders: Orders Influenza [id number] Immunization 12/28/24 Z23 - Encounter for immunization Estrogen 12/28/24 N80.9 - Endometriosis, unspecified, Z90.710 - Acquired absence of both cervix and uterus, Z90.721 - Acquired absence of ovaries, unilateral Estrone 12/28/24 N80.9 - Endometriosis, unspecified, Z90.710 - Acquired absence of both cervix and uterus, Z90.721 - Acquired absence of ovaries, unilateral Testosterone, Free/Total 12/28/24 N80.9 - Endometriosis, unspecified, Z90.710 - Acquired absence of both cervix and uterus, Z90.721 - Acquired absence of ovaries, unilateral Follicle Stimulating Hormone 12/28/24 N80.9 - Endometriosis, unspecified, Z90.710 - Acquired absence of both cervix and uterus, Z90.721 - Acquired absence of ovaries, unilateral TSH reflex Free T4 12/28/24 N80.9 - Endometriosis, unspecified, Z90.710 - Acquired absence of both cervix and uterus, Z90.721 - Acquired absence of ovaries, unilateral Medications: New lisdexamfetamine (Vyvanse) Partial Fill upon patient request. 10 mg PO DAILY 21 caps 0RF 21 days F90.0 - Attention-deficit hyperactivity disorder, predominantly inattentive type
--- OUTSIDE RECORDS SUMMARY | 2024-12-28 12:01 | XMS_ITS | Continuity of Care Document ---
Author Organization [facility] r Address [address] [place] [address]- Care Team Providers Care Credit Representative Name Role Phone Cade Pollard Primary Care Physician Encounter [facility] [id number] Date(s): 11/04/24 - 12/05/[address] [address]- Attending Physician: Cade Pollard Admitting Physician: Cade Pollard Referring Physician: Cade Pollard Encounter Type: Pre-OutPatient One Time Allergies, Adverse Reactions, Alerts Substance Criticality Severity Reaction Reaction Severity Status HYDROcodone Nausea Active Medications buPROPion 300 mg/24 hours (XL) oral tablet, extended release TAKE 1 TABLET BY MOUTH EVERY MORNING Start Date: 09/03/24 Status: Ordered Repeat number: 1 busPIRone 15 mg oral tablet TAKE 1 TABLET BY MOUTH DAILY NEEDED FOR ANXIETY Start Date: 09/03/24 Status: Ordered Repeat number: 1 Misc Rx Olli probiotic/prebiotic gummy, By Mouth, Daily, Refills 0, Maintenance, 09/03/24 4:50:00 PM EDT, Supply Start Date: 09/03/24 Status: Ordered Repeat number: 1 Multi Jelly Beans oral tablet, chewable 1 tablet, Daily, 0 Refills, Maintenance, 09/03/24 4:49:00 PM EDT, Partial fill upon patient requestif the prescription is for a schedule II opioid drug. Start Date: 09/03/24 Status: Ordered Repeat number: 1 omeprazole 20 mg oral delayed release tablet 1 tablet = 20 mg, By Mouth, Daily, PRN Dyspepsia, # 30 tablet, 0 Refills, Maintenance, 09/03/24 4:54:00 PM EDT, CR Tablet, Partial fill upon patient request if the prescription is for a schedule II opioid drug. Start Date: 09/03/24 Status: Ordered Quantity: 30.0 Unit: tablet Repeat number: 1 Vitamin B12 1000 mcg oral tablet 1 tablet gummy, By Mouth, Daily, # 30 tablet, 0 Refills, Maintenance, 09/03/24 4:50:00 PM EDT, Tablet, Partial fill upon patient request if the prescription is for a schedule II opioid drug. Start Date: 09/03/24 Status: Ordered Quantity: 30.0 Unit: tablet Repeat number: 1 Vitamin D3 Gummies 50 mcg (2000 intl units) oral tablet, chewable 1 tablet = 50 mcg, By Mouth, Daily, 0 Refills, Maintenance, 09/03/24 4:49:00 PM EDT, Partial fill upon patient request if the prescription is for a schedule II opioid drug. Start Date: 09/03/24 Status: Ordered Repeat number: 1 Problem List Condition Confirmation Course Effective Dates Status H ealth Status Informant Anxiety Confirmed Active Chronic pelvic pain in female Confirmed Active Depression Confirmed Active Sigmoid diverticulosis Confirmed Active Dysmenorrhea Confirmed Active Former smoker Confirmed Active Chronic left lower quadrant pain Confirmed Active Migraines Confirmed Active No Pap smears in [facility] system - history of LSIL Pap 02/24/09 (during ), colposcopy 03/07/09 normal. Last Pap January 2024 normal per patient. Status post total laparoscopic hysterectomy 09/07/2024, no further Pap smears needed Confirmed Active Severe obesity (BMI 35.0-39.9) with comorbidity Confirmed Active Social History Social History Type Response Smoking Status Former smoker, quit more than 30 days ago; Other: Quit age 18; entered on: 09/04/24 Sex Sex Representation Female (finding) Patient Care team information Care Team Personnel Name: Cade Pollard Position: Reference Physician Member Role: PCP Address: [address] [place] [address]- Telecom: Care Team Related Persons Name: KAVIN LAUERN Insurance Providers Guarantor name: NA Health Plan Information #: 1 Payer: [employer] Member Number: [id number] Policy Number: Group Number: Health Plan Information #: 2 Payer: [employer]IME Member Number: [id number] Policy Number: NA Group Number: NA
--- OUTSIDE RECORDS SUMMARY | 2024-12-28 12:02 | XMS_ITS | Continuity of Care Document ---
Author Organization [facility] r Address [address] [place] [address]- Care Team Providers Care Potato Peeling Machine Operator Name Role Phone Cade Pollard Primary Care Physician [phone] Encounter [facility] NBR [id number] Date(s): 11/05/24 - 12/05/[address] [address]- Attending Physician: Ann Orozco Admitting Physician: Ann Orozco Referring Physician: Ann Orozco Encounter Type: Triage Allergies, Adverse Reactions, Alerts Substance Criticality Severity [...] Reference Physician Member Role: PCP [address] [place] [address]- Telecom: Care Team Related Persons Name: KAVIN LAUREN Insurance Providers Guarantor name: ANDREW Health Plan Information #: 1 Payer: [employer] Member Number: NA Policy Number: NA Group Number: NA
--- OUTSIDE RECORDS SUMMARY | 2024-12-28 12:03 | XMS_ITS | Continuity of Care Document ---
Author Organization [facility] Address [address] [place] [address] Phone Care Team Providers Care Bioanalyst Name Role Phone Lab Xray, Lab Xray Unavailable Unavailable Procedures Procedure Date Void Ticket Advance Directives Directive Yes / No Effective Date File Name No Information Encounters Encounter Description Practice Location Reason(s) For Visit Diagnoses Date Provider Providers Copied on Encounter [facility], [address], [place], [place], [id number], [place] tel:[phone] [facility] No Information 1 9 Lab Xray Lab Xray. . Family History Family Member Type Diagnosis Age At Onset No Information Payers Payer name Insurance type Covered alliance party ID Authoriza tion(s) No Information Social [...]
--- OUTSIDE RECORDS SUMMARY | 2024-12-28 12:03 | XMS_ITS | Continuity of Care Document ---
Author Name [facility] Organization [facility] Care Team Providers Care Entry Level Name Role Phone [facility] Unavailable Unavailable Problems Combined list of problems from Department of Defense and Veterans Affairs facilities. It does not include entries that were removed or entered in error. Problem Status Onset Date Problem Type Date of Resolution Comments Source Left lower quadrant pain Active Condition DoD indic for care/interven rel to labor/deliv antepartum compl Inactive Condition DoD post-term - antepartum cond or prior compl deliver Inactive Condition [facility] incoordinate uterine contractions Inactive Condition [facility] visit for: administrative purpose Inactive Condition [facility] Supervision Of Normal Inactive Condition [facility] intolerance of glucose-galactose Active Condition DoD Need For Prophylactic Immunotherapy RhoGAM Inactive Condition DoD preg complications: antepartum cond or prior comp delivery Inactive Condition [facility] heartburn Active Condition DoD sciatica Active Condition DoD Education Initial Visit Active Condition DoD Patient Counseling: Active Condition Do D exam with positive result Inactive Condition DoD nausea with vomiting Inactive Condition DoD Medications Combined list of outpatient medications from Department of Defense and Veterans Affairs facilities.Medications provided include 1) outpatient medications from the last 15 months, and 2) patient-reported medications. Medication Details Route Status Patient Instructions Prescription Expires Prescription Number Last Dispense Date Ordering Provider Order Date Order Qty Source BUPROPION XL (bupropion HCl), 300 MG, TAB ER 24H, ORAL, LUPIN PHARMACEU, 500 ea. BOTTLE Active [id number] 2023 30 Pharmac y Data Transac tion Service Facilit y BUPROPION XL (bupropion HCl), 300 MG, TAB ER 24H, ORAL, LUPIN PHARMACEU, 500 ea. BOTTLE Active [id number] 2023 30 Pharmac y Data Transac tion Service Facilit y BUPROPION XL (bupropion HCl), 300 MG, TAB ER 24H, ORAL, LUPIN PHARMACEU, 500 ea. BOTTLE Active [id number] 4 2023 30 Pharmac y Data Transac tion Service Facilit y BUPROPION XL (bupropion HCl), 300 MG, TAB ER 24H, ORAL, LUPIN PHARMACEU, 500 ea. BOTTLE Cancele d [id number] : 2023 0 Pharmac y Data Transac tion Service Facilit y BUPROPION XL (bupropion HCl), 300 MG, TAB ER 24H, ORAL, LUPIN PHARMACEU, 500 ea. BOTTLE Active [id number] 3 2022 30 Pharmac y Data Transac tion Service Facilit y BUPROPION XL (bupropion HCl), 300 MG, TAB ER 24H, ORAL, LUPIN PHARMACEU, 500 ea. BOTTLE Active [id number] 2023 30 Pharmac y Data Transac tion Service Facilit y BUPROPION XL (bupropion HCl), 300 MG, TAB ER 24H, ORAL, LUPIN PHARMACEU, 500 ea. BOTTLE Active [id number] 4 2023 30 Pharmac y Data Transac tion Service Facilit y BUPROPION XL (bupropion HCl), 300 MG, TAB ER 24H, ORAL, LUPIN PHARMACEU, 90 ea. BOTTLE Active [id number] 2023 30 Pharmac y Data Transac tion Service Facilit y BUPROPION XL (bupropion HCl), 300 MG, TAB ER 24H, ORAL, LUPIN PHARMACEU, 90 ea. BOTTLE Active [id number] 2023 30 Pharmac y Data Transac tion Service Facilit y BUSPIRONE HCL (BUSPIRONE HCL), 15MG, TABLET, ORAL, TEV [place], 100 ea. BOTTLE Active [id number] 4 2023 90 Pharmac y Data Transac tion Service Facilit y nitrofurant oin macrocrysta ls-monohydr ate 100 mg oral capsule 0 total refill(s ) Ordered No Facilit y Access ONDANSETRON ODT (ondansetro n), 8 MG, TAB RAPDIS, ORAL, RISING PHARM, 30 ea. BOTTLE Cancele d [id number] : 2023 0 Pharmac y Data Transac tion Service Facilit y rizatriptan 5 mg oral tablet, disintegrat ing rizatrip huffman 5 mg oral tablet, disinteg rating Start Date: 08/11/17 Status: Ordered Ordered No Facilit y Access SSD (SILVER SULFADIAZIN E), 1 %, CREAM (G), TOPICAL, 'S LAB, 50 g JAR Candanyel d [id number] : 2023 0 Pharmac y Data Transac tion Service Facilit y Allergies, Adverse Reactions, Alerts Combined list of allergies from Department of Defense and Veterans Affairs facilities. It does not include entries that were removed or entered in error. Substance Category Reaction Severity Reaction type Status Date Reported Comments Source acetaminop hen-hydroc odone Propensity to adverse reactions to substance Nausea Active 6 Nausea, upset stomach, constipation Ambulator y Pharmacy HYDROCODON E-ACETAMIN OPHEN (HYDROCODO NE BIT/ACETAM INOPHE Drug allergy (disorder) Nausea active 6 [facility] Immunizations Combined list of available immunizations from the Department of Defense and Veterans Affairs facilities. Immunization Series Date Given Administered By Site Reaction Lot Number CVX Code Drug Healthcare Economics Consultant Status Comments Source COVID-19, mRNA, LNP-S, PF, 30 mcg/0.3 mL dose 2020 TERRI, () Not Given COVID-19, mRNA, LNP-S, PF, 30 mcg/0.3 mL dose DoD COVID-19, mRNA, LNP-S, PF, 30 mcg/0.3 mL dose 2020 ИРИНА [employer] NV (PFR) Not Given COVID-19, mRNA, LNP-S, PF, 30 mcg/0.3 mL dose DoD tetanus, diphtheria, acellular pertu is 2010 Hasmukh t Arm [id number] [employer]SmithK[employer] ne complet ed tetanus, diphtheri a, acellular pertussis 10/08/11 Given Ambulat ory Pharmac y influenza virus vaccine, whole virus 2010 Michael ht Arm [id number] sanofi pasteur complet ed influenza virus vaccine, whole virus 10/08/11 Given Ambulat ory Pharmac y influenza virus vaccine, whole virus 0 2010 [id number] Sanofi Pasteur ([facility]) complet ed influenza virus vaccine, whole virus DoD tetanus toxoid, reduced diphtheria toxoid, and acellular pertu is vaccine, adsorbed 0 [id number] [place] [address] ([facility]) complet ed tetanus toxoid, reduced diphtheri a toxoid, and acellular pertussis vaccine, adsorbed DoD Vital Signs Combined list of inpatient and outpatient Vital Signs from Department of Defense and Veterans Affairs, ranging from 12 months to all on record, depending upon the facility. Vital Sign Value Date Comments Source No data available for this section Ambulatory Pharmacy Encounters Combined list of: 1) Encounters from Department of Veterans Affairs facilities going back up to thelast 18 months. 2) Encounters from the Department of [facility] facilities going back up to 280 months. Location Location Details Encounter Type Encounter Number Reason For Visit Attending Provider ADM Date DC Date Status Disposition Source [facility]([place] [facility] [place]) OUTPATIENT [id number] dating u/s to confirm dates. prenata l reg sched on PATRICK ROSA W 04/20 Released w/o Limitations [facility]([place] [facility] [place]) [facility]([place] [facility] OUTPATIENT [id number] prenata l reg. pt has dating u/s lmp [id number] CARL BAL 05/10 Released w/o Limitations [facility]) [facility] [place]) OUTPATIENT [id number] NOB late to care 19+ u/s 05/17/11 TEOFILO ROSS 05/22 Released w/o Limitations [facility]([place] [facility] [place] ) [facility] [place]) OUTPATIENT [id number] micheal 31+ wks r/s from today n/s with REJI Guerra 07/27 Released w/o Limitations [facility]([place] [facility] [place] ) [facility] [place]) OUTPATIENT [id number] TEOFILO IGLESIAS 09/10 Released w/o Limitations [facility]([place] [facility] [place] ) [facility] [place]) OUTPATIENT [id number] micheal 39wks TEOFILO ROSS 09/19 Released w/o Limitations [facility] [place] ) [facility] [place]) TELE CONSULT [id number] 39+wks vag pain getting worst LAMONTE MONIQUE 09/24 Referred for Appointment [facility]([place] [facility] [place] ) [facility] [place]) OUTPATIENT [id number] strip TEOFILO Ledesma 09/24 Released w/o Limitations [facility] [place] ) [facility] [place]) OUTPATIENT [id number] micheal 40wks TEOFILO ROSS 09/28 Released w/o Limitations [facility] [place] ) [facility]([place] [facility]) OUTPATIENT [id number] @ 40+1wks r/o labor JAMES GLEZ 09/30 Released w/o Limitations [facility]) [facility]([place] [facility]) OUTPATIENT [id number] @ 40+2 wks r/o labor, sent home from triage at [facility] RICCI Man 09/30 Released w/o Limitations [facility]) [facility] [place]) OUTPATIENT [id number] micheal 41 + wks TEOFILO ROSS 10/03 Released w/o Limitations [facility] ) [facility]([place] [facility]) OUTPATIENT [id number] post due dates MARGARET BUCK 10/04 Released w/o Limitations [facility]) [facility] OR [facility] [id number] ALICE CASILLAS 10/07 DISCHARGED HOME [facility]([place] [facility]) OUTPATIENT [id number] @ 41+2 weeks r\o Labor SAGE WHALEY 10/07 Released w/o Limitations [facility] Triage) Formerly [facility] 4) OUTPATIENT [id number] has the Osmani coronado nt bc has had pain since MYRNA BRENNER 07/18 Released w/o Limitations [facility]ly [facility] Medic[facility] 4) Formerly [facility] Obstetric s/Gynecol ogy) OUTPATIENT [id number] FEMALE PELVIC PAIN SEBASTIEN MARIA DEL CARMEN M 08/12 Released w/o Limitations Formerly [facility] Obstetr ics/Petrologist ecology ) Formerly [facility] Phy Therapy) OUTPATIENT [id number] FEMALE PELVIC PAIN ISAIAS, PHILL M 08/30 Released w/o Limitations Formerly [facility] Phy Therapy ) Formerly [facility]) OUTPATIENT [id number] ISAIAS, PHILL M 09/16 Released w/o Limitations Formerly [facility] Phy Therapy ) Formerly [facility]) OUTPATIENT [id number] NEISHA MOLINA 09/16 Released w/o Limitations Formerly [facility] Phy Therapy ) Formerly [facility]) OUTPATIENT [id number] ISAIAS, PHILL M 09/20 Released w/o Limitations Formerly [facility] Phy Therapy ) Formerly [facility]) OUTPATIENT [id number] f/u pelvic floor ISAIAS, PHILL M 09/30 Released w/o Limitations Formerly [facility] Phy Therapy ) Formerly [facility]) OUTPATIENT [id number] JAX PATTON 09/30 Released w/o Limitations [facility] Phy [facility] ) [facility]) OUTPATIENT [id number] CHELA ANGULO 10/14 Released w/o Limitations [facility] ) [facility]) OUTPATIENT [id number] PHILL ESPARZA M 10/14 Released w/o Limitations [facility] Phy [facility] ) [facility]) OUTPATIENT [id number] PHILL ESPARZA M 10/21 Released w/o Limitations [facility] Phy Therapy ) [facility]) OUTPATIENT [id number] VIOT JOSEPH 10/27 Released w/o Limitations [facility]y [facility] ) [facility]) OUTPATIENT [id number] PHILL ESPARZA Reza 11/08 Released w/o Limitations [facility]y [facility] ) [facility]) OUTPATIENT [id number] PHILL ESPARZA Reza 11/22 Released w/o Limitations [facility] Phy Therapy ) [facility] 4) TELE CONSULT [id number] Notes Entered by: FUNMI NICHOLAS 31 Jan 2016 1322 ------- ------- ------- ------- -- RH Message RE: Maria D castellanos/FUNMI Garcia 01/30 Referred for Appointment Former[facility]) [facility] 4) OUTPATIENT [id number] maria d castellanos x1becca MYRNA BRENNER Susy 02/19 Released w/o Limitations [facility] Family Medicin [facility] 4) [facility] 4) TELE CONSULT [id number] Notes Entered by: FUNMI NICHOLAS 23 Feb 2016 0848 ------- ------- ------- ------- -- Message RE: Request ing MYRNA BRENNER 02/22 Formerly [facility] 4) Formerly [facility] 4) OUTPATIENT [id number] ingrown hair in pelvic area/pa inful MYRNA BRENNER 03/05 Released w/o Limitations Formerly [facility] 4) Formerly [facility] Obstetric s/Gynecol ogy) OUTPATIENT [id number] Pelvic and perinea l pain MARIA DEL CARMEN CROWE 03/22 Released w/o Limitations Formerly [facility](B rem[facility] ics/Petrologist ecology ) [facility] TELE CONSULT [id number] Notes Entered by: PRINCESS LOAIZA CH 28 Mar 2016 1027 ------- ------- ------- ------- -- [employer] MYRNA Carpenter T 03/28 Formerly [facility] Medic[facility] 3) [facility]) TELE CONSULT [id number] Notes Entered by: Radha GRANADOS 27 Apr 2016 1347 ------- ------- ------- ------- -- [facility] [phone] Limited Pelvic Ultraso und 04/20/16 WIN GRANADOS 04/27 [facility] Formerly [facility] Obstetric s/Gynecol ogy) TELE CONSULT [id number] Notes Entered by: Chetna KNAPP 01 May 2016 0930 ------- ------- ------- ------- -- Message to Provide MARIA DEL CARMEN Rodriguez 05/01 [facility]Petrologist ecology ) Formerly [facility] 3) OUTPATIENT [id number] F/U STOMACH CONCERN S MYRNA BRENNER T 06/12 Released w/o Limitations Formerly [facility] 3) Formerly [facility] 3) TELE CONSULT [id number] MYRNA BRENNER 06/16 Formerly [facility] Medic[facility] 3) Formerly [facility] 3) TELE CONSULT [id number] Notes Entered by: Dontrell CARY 27 Aug 2016 1044 ------- ------- ------- ------- -- [id number] NAL; PCM: OBDULIO Krishna 08/27 Referred for Appointment Former[facility] 3) Formerly [facility] 3) OUTPATIENT [id number] f/u pelvic pn MYRNA BRENNER T 12/05 Released w/o Limitations Formerly [facility] 3) Formerly [facility] 3) OUTPATIENT [id number] Worseni ng cold x1w MYRNA BRENNER T 12/17 Released w/o Limitations Formerly [facility] 3) Formerly [facility] 3) OUTPATIENT [id number] looney cx x5d JÚNIOR MCGRATH 02/08 Released w/o Limitations Formerly [facility] Medicin [facility] 3) Formerly [facility]/Gynecol [facility]gy) OUTPATIENT [id number] Left lower quadran t pain chronic MARIA DEL CARMEN CROWE 03/22 Released w/o Limitations Formerly [facility] Obstetr ics/Petrologist ecology ) Formerly [facility] Obstetric s/Gynecol ogy) TELE CONSULT [id number] Notes Entered by: Chetna KNAPP 04 Apr 2017 1614 ------- ------- ------- ------- -- WILLG TATI Arriaga 04/04 [facility] Javier [facility] ics/Petrologist ecology ) [facility] Obstetric s/Gynecol ogy) OUTPATIENT [id number] G JESSICA BYRD Agustín 04/11 [facility]ased w/o Limitations [facility]isco Javier [facility] ics/Petrologist ecology ) [facility] TELE CONSULT [id number] Notes Entered by: Luiz LOVE 16 Apr 2017 1013 ------- ------- ------- ------- -- [facility] [phone] Pelvic Ultraso und 04/13/17 YONY LOVE 04/16 [facility] OUTPATIENT [id number] INF BUG BITE ON ABDOM X2D MYRNA BRENNER 04/17 [facility]ased w/o Limitations [facility]Francisco Javier gaffney [facility] Medicin e 3) Procedures Combined list of: 1) Procedures from Department of Veterans Affairs facilities going back up to thelast 18 months, not all VA non-surgical procedures are included; 2) All procedures from the Department of Defense facilities. Procedure Procedure Type Code Date Perfomer Comments Sourc e No data available for this section Ambulatory Pharmacy THERAPEUTIC, PROPHYLACTIC, OR DIAGNOSTIC INJECTION (SPECIFY SUBSTANCE OR DRUG); SUBCUTANEOUS OR INTRAMUSCULAR 10/30 [facility] REPAIR OF OTHER CURRENT OBSTETRIC LACERATION 10/09 DoD INJECTION OF RH IMMUNE GLOBULIN 10/09 DoD ADMINISTRATION OF [id number] TUSSIS, COMBINED 10/09 DoD POSTOPERATIVE FOLLOW-UP VISIT, NORMALLY INCLUDED IN THE SURGICAL PACKAGE, INDICATE THAT EVALUATION & MANAGEMENT SERVICE WAS PERFORMED DURING A POSTOPERATIVE PERIOD REASON RELATED ORIGINAL PROCEDURE 10/08 [facility] VAGINAL DELIVERY ONLY (WITH OR WITHOUT EPISIOTOMY AND/OR FORCEPS); 10/07 DoD ULTRASOUND, UTERUS, REAL TIME WITH IMAGE DOCUMENTATION, LIMITED (EG, HEART BEAT, PLACENTAL LOCATION, POSITION AND/OR QUALITATIVE AMNIOTIC FLUID VOLUME), 1 OR MORE FETUSES 10/04 [facility] SUBS CARE VISIT () [EXCLS:PATIENTS WHO ARE SEEN FOR A CONDITION UNREL TO / CARE (EG,AN UP RESPIR INFECT;PATIENTS SEEN FOR CONSULTATION ONLY,NOT FOR CONT CARE)] 10/03 [facility] SUBSEQ CARE VISIT () [EXCLS:PATIENTS WHO ARE SEEN FOR A CONDITION UNREL TO / CARE (EG,AN UP RESPIR INFECT;PATIENTS SEEN FOR CONSULTATION ONLY,NOT FOR CONT CARE)] 09/30 [facility] SUBSEQ CARE VISIT () [EXCLS:PATIENTS WHO ARE SEEN FOR A CONDITION UNREL TO / CARE (EG,AN UP RESPIR INFECT;PATIENTS SEEN FOR CONSULTATION ONLY,NOT FOR CONT CARE)] 09/29 [facility] SUBSEQ CARE VISIT () [EXCLS:PATIENTS WHO ARE SEEN FOR A CONDITION UNREL TO / CARE (EG,AN UP RESPIR INFECT;PATIENTS SEEN FOR CONSULTATION ONLY,NOT FOR CONT CARE)] 09/28 [facility] SUBSEQ CARE VISIT () [EXCLS:PATIENTS WHO ARE SEEN FOR A CONDITION UNREL TO / CARE (EG,AN UP RESPIR INFECT;PATIENTS SEEN FOR CONSULTATION ONLY,NOT FOR CONT CARE)] 09/24 [facility] SUBSEQ CARE VISIT () [EXCLS:PATIENTS WHO ARE SEEN FOR A CONDITION UNREL TO / CARE (EG,AN UP RESPIR INFECT;PATIENTS SEEN FOR CONSULTATION ONLY,NOT FOR CONT CARE)] 09/19 [facility] SUBSEQ CARE VISIT () [EXCLS:PATIENTS WHO ARE SEEN FOR A CONDITION UNREL TO / CARE (EG,AN UP RESPIR INFECT;PATIENTS SEEN FOR CONSULTATION ONLY,NOT FOR CONT CARE)] 09/10 [facility] SUBSEQ CARE VISIT () [EXCLS:PATIENTS WHO ARE SEEN FOR A CONDITION UNREL TO / CARE (EG,AN UP RESPIR INFECT;PATIENTS SEEN FOR CONSULTATION ONLY,NOT FOR CONT CARE)] 07/27 [facility] ULTRASOUND, UTERUS, REAL TIME WITH IMAGE DOCUMENTATION, LIMITED (EG, HEART BEAT, PLACENTAL LOCATION, POSITION AND/OR QUALITATIVE AMNIOTIC FLUID VOLUME), 1 OR MORE FETUSES 04/20 [facility] CATHETERIZATION AND INTRODUCTION OF SALINE OR CONTRAST MATERIAL FOR SALINE INFUSION SONOHYSTEROGRAPHY (SIS) OR HYSTEROSALPINGOGRAPHY 04/11 [facility] SCREENING PAPANICOLAOU SMEAR; OBTAINING, PREPARING AND CONVEYANCE OF CERVICAL OR VAGINAL SMEAR TO LABORATORY 03/22 [facility] PHYSICAL THERAPY RE-EVALUATION 11/22 [facility] MANUAL THERAPY TECHNIQUES (EG, MOBILIZATION/ MANIPULATION, MANUAL LYMPHATIC DRAINAGE, MANUAL TRACTION), 1 OR MORE [facility], EACH 15 MINUTES 11/08 [facility] MANUAL THERAPY TECHNIQUES (EG, MOBILIZATION/ MANIPULATION, MANUAL LYMPHATIC DRAINAGE, MANUAL TRACTION), 1 OR MORE [facility], EACH 15 MINUTES 10/27 [facility] MANUAL THERAPY TECHNIQUES (EG, MOBILIZATION/ MANIPULATION, MANUAL LYMPHATIC DRAINAGE, MANUAL TRACTION), 1 OR MORE [facility], EACH 15 MINUTES 10/21 [facility] MANUAL THERAPY TECHNIQUES (EG, MOBILIZATION/ MANIPULATION, MANUAL LYMPHATIC DRAINAGE, MANUAL TRACTION), 1 OR MORE REGIONS, EACH 15 MINUTES 10/14 [facility] MANUAL THERAPY TECHNIQUES (EG, MOBILIZATION/ MANIPULATION, MANUAL LYMPHATIC DRAINAGE, MANUAL TRACTION), 1 OR MORE REGIONS, EACH 15 MINUTES 09/30 [facility] MANUAL THERAPY TECHNIQUES (EG, MOBILIZATION/ MANIPULATION, MANUAL LYMPHATIC DRAINAGE, MANUAL TRACTION), 1 OR MORE REGIONS, EACH 15 MINUTES 09/20 [facility] THERAPEUTIC PROCEDURE, 1 OR MORE AREAS, EACH 15 MINUTES; THERAPEUTIC EXERCISES TO DEVELOP STRENGTH AND ENDURANCE, RANGE OF MOTION AND FLEXIBILITY 09/16 [facility] MANUAL THERAPY TECHNIQUES (EG, MOBILIZATION/ MANIPULATION, MANUAL LYMPHATIC DRAINAGE, MANUAL TRACTION), 1 OR MORE REGIONS, EACH 15 MINUTES 09/16 [facility] MANUAL THERAPY TECHNIQUES (EG, MOBILIZATION/ MANIPULATION, MANUAL LYMPHATIC DRAINAGE, MANUAL TRACTION), 1 OR MORE REGIONS, EACH 15 MINUTES 08/30 [facility] INJECTION, KETOROLAC TROMETHAMINE, PER 15 MG 07/21 [facility] SERVICE(S) PROVIDED BETWEEN 10:00 PM AND 8:00 AM AT 24-HOUR FACILITY, IN ADDITION TO BASIC SERVICE 05/27 [facility] Hysterosalpingography With Catheter Contrast Injection Hysterosalpingography With Catheter Contrast Injection [id number] 04/15 JESSICA BYRD [facility] Test Test [id number] 04/15 JESSICA BYRD [facility] Cervical or vaginal cancer screening; pelvic and clinical breast examination 03/24 MARIA DEL CARMEN CROWE [facility] Screening papanicolaou smear; obtaining, preparing and conveyance of cervical or vaginal smear to laboratory 03/24 MARIA DEL CARMEN CROWE [facility] Physical Therapy Service Re-Evaluation Physical Therapy Service Re-Evaluation 10585 11/22 ISAIASPHILL Li [facility] Mobilization Soft Ti ue Mobilization Soft Tissue 17253 11/08 PHILL ESPARZA [facility] Physical Therapy Service Re-Evaluation Physical Therapy Service Re-Evaluation 90407 11/08 ISAIASPHILL Li [facility] Physical Therapy Mobilization Joint Physical Therapy Mobilization Joint 06954 10/27 VITO JOSEPH [facility] Physical Therapy: ___ Se ion Segments, 15 Minutes Each Physical Therapy: ___ Session Segments, 15 Minutes Each 42687 10/27 VITO JOSEPH [facility] Mobilization Soft Ti ue Mobilization Soft Tissue 79087 10/21 ISAIASPHILL [facility] Physical Therapy: ___ Se ion Segments, 15 Minutes Each Physical Therapy: ___ Session Segments, 15 Minutes Each 60662 10/21 ISAIAS, PHILL Cobb [facility] Physical Therapy Service Re-Evaluation Physical Therapy Service Re-Evaluation 32276 10/21 ISAIAS, PHILL Cobb [facility] Mobilization Soft Ti ue Mobilization Soft Tissue 28319 10/14 ISAIASPHILL [facility] Physical Therapy: ___ Se ion Segments, 15 Minutes Each Physical Therapy: ___ Session Segments, 15 Minutes Each 58036 10/14 ISAIASPHILL [facility] Physical Therapy Service Re-Evaluation Physical Therapy Service Re-Evaluation 28782 10/14 ISAIASPHILL [facility] Physical Therapy Mobilization Joint Physical Therapy Mobilization Joint 07027 10/14 CHELA ANGULO [facility] Physical Therapy Mobilization Joint Physical Therapy Mobilization Joint 20640 09/30 JAX PATTON [facility] Physical Therapy: ___ Se ion Segments, 15 Minutes Each Physical Therapy: ___ Session Segments, 15 Minutes Each 84986 09/30 JAX PATTON [facility] Mobilization Soft Ti ue Mobilization Soft Tissue 30178 09/30 ISAIASPHILL [facility] Physical Therapy Service Re-Evaluation Physical Therapy Service Re-Evaluation 80288 09/30 ISAIASPHILL [facility] Physical Therapy: ___ Se ion Segments, 15 Minutes Each Physical Therapy: ___ Session Segments, 15 Minutes Each 48211 09/21 NEISHA MOLINA [facility] Mobilization Soft Ti ue Mobilization Soft Tissue 56354 09/20 ISAIASPHILL [facility] Physical Therapy Service Re-Evaluation Physical Therapy Service Re-Evaluation 97254 09/20 PHILL ESPARZA [facility] Mobilization Soft Ti ue Mobilization Soft Tissue 45614 09/16 ISAIASPHILL Li [facility] Physical Therapy Neuromuscular Re-education Physical Therapy Neuromuscular Re-education 29505 09/16 ISAIAS, PHILL Cobb [facility] Physical Therapy Service Re-Evaluation Physical Therapy Service Re-Evaluation 06311 09/16 ISAIASPHILL Li [facility] Mobilization Soft Ti ue Mobilization Soft Tissue 01693 08/31 ISAIAS, PHILL Cobb [facility] Physical Therapy Neuromuscular Re-education Physical Therapy Neuromuscular Re-education 96845 08/31 ISAIAS PHILL Cobb [facility] Physical Therapy Service Evaluation Physical Therapy Service Evaluation 24573 08/31 ISAIASPHILL [facility] Non-Stre Test (___ 0,2) Non-Stress Test (___ 0,2) 01188 10/04 MARGARET BUCK [facility] Ultrasound Obstetric Limited Evaluation Ultrasound Obstetric Limited Evaluation 00771 10/04 MARGARET BUCK [facility] OB Services Antepartum Care Only Subsequent Single Visit OB Services Antepartum Care Only Subsequent Single Visit 0502F 10/03 TEOFILO ROSS [facility] OB Services Antepartum Care Only Subsequent Single Visit OB Services Antepartum Care Only Subsequent Single Visit 0502F 09/30 RICCI GONZALEZ [facility] Non-Stre Test (___ 0,2) Non-Stress Test (___ 0,2) 32767 09/30 [place] [facility] Ultrasound Obstetric Limited Evaluation Ultrasound Obstetric Limited Evaluation 19363 09/30 [facility] OB Services Antepartum Care Only Subsequent Single Visit OB Services Antepartum Care Only Subsequent Single Visit 0502F 09/28 TEOFILO ROSS OB Services Antepartum Care Only Subsequent Single Visit OB Services Antepartum Care Only Subsequent Single Visit 0502F 09/24 TEOFILO ROSS OB Services Antepartum Care Only Subsequent Single Visit OB Services Antepartum Care Only Subsequent Single Visit 0502F 09/19 TEOFILO ROSS [facility] OB Services Antepartum Care Only Subsequent Single Visit OB Services Antepartum Care Only Subsequent Single Visit 0502F 09/10 TEOFILO ROSS [facility] OB Services Antepartum Care Only Subsequent Single Visit OB Services Antepartum Care Only Subsequent Single Visit 0502F 07/27 REJI SHERWOOD [facility] Ultrasound Obstetric Limited Evaluation Ultrasound Obstetric Limited Evaluation 95682 04/20 PATRICK ROSA [facility] Social History Combined list of available smoking, tobacco, and other social history from [facility] facilities. Social History Type Response Date Comment Sourc e Female 08/11/2017 Ambulatory Pha rmacy Sexual Orientation Ambula tory Pharmacy Gender identity Ambulator y Pharmacy This section is an empty soc ial history section. [facility] Assessment and Plan Combined list of future care activities from [facility] facilities (e.g., assessment and plan notes, appointments, orders, and referrals). Additional future care activities may be listed in the Plan of Care section. Result Assessment and Plan Date Source Assessment and Plan No data available for this section 12/28/2024 Ambulatory Pharmacy Functional Status Combined list of recent functional and cognitive assessments recorded at [facility] Functional Kennard Measurement (FIM) Scale: 1 = Total Assistance (Subject = 0% +), 2 = Maximal Assistance (Subject = 25% +), 3 = Moderate Assistance (Subject = 50% +), 4 = Minimal Assistance (Subject = 75% +), 5 = Supervision, 6 = Modified Kennard (Device), 7 = Complete Kennard (Timely, Safely). Assessment Date/Time Source Assessment Type Assessment Skill Assessment Score Assessment Details No data available for this section
== END 2024-12-28 12:03 | disposition home or self-care (01) ==
PROVIDERS: PCP Physician Assistant; Visit Provider Physician Assistant
DX: F33.1 Major depressive disorder, recurrent, moderate (principal); F90.0 Attention-deficit hyperactivity disorder, predominantly inattentive type; F41.1 Generalized anxiety disorder; N80.9 Endometriosis, unspecified

== ENCOUNTER → 2024-12-28 10:55 | Outpatient (BNVA) | payer OTHER, SELFPAY | PROVIDERS: PCP Physician Assistant; Visit Provider Physician Assistant | DX: Z23 Encounter for immunization (principal); F33.1 Major depressive disorder, recurrent, moderate; F90.0 Attention-deficit hyperactivity disorder, predominantly inattentive type; F41.1 Generalized anxiety disorder; N80.9 Endometriosis, unspecified | CPT/HCPCS: 90471; 90656; 96127; 99212 ==

== ENCOUNTER 2025-01-05 08:04 | Outpatient (REF) | payer OTHER, SELFPAY ==
--- OUTSIDE RECORDS SUMMARY | 2025-01-05 08:09 | XMS_ITS | Continuity of Care Document ---
Author Organization [facility] Address [address] [place] [address] Phone Care Team Providers [facility] Technology Teacher Name Role Phone Lab Xray, Lab Xray Unavailable Unavailable Procedures Procedure Date Void Ticket Advance Directives Directive Yes / No Effective Date File Name No Information Encounters Encounter Description Practice Location Reason(s) For Visit Diagnoses Date Provider Providers Copied on Encounter [facility], [address], [place], [place], [id number], [place] tel:[phone] [facility] No Information 1200 9 Lab Xray Lab Xray. . Family [...]
--- OUTSIDE RECORDS SUMMARY | 2025-01-05 08:09 | XMS_ITS | Continuity of Care Document ---
Author Name [facility] Organization [facility] Care Team Providers Care Conservation Assistant Name Role Phone [facility] Unavailable Unavailable Problems Combined list of problems [...] cond or prior compl deliver Inactive Condition [facility] incoordinate uterine contractions Inactive Condition [facility] visit for: administrative purpose Inactive Condition [facility] Supervision Of Normal Inactive Condition [facility] intolerance of glucose-galactose Active Condition DoD Need For Prophylactic Immunotherapy RhoGAM Inactive Condition DoD preg complications: antepartum cond or prior comp delivery Inactive Condition [facility] heartburn Active Condition DoD sciatica Active Condition [...] ORAL, LUPIN PHARMACEU, 500 ea. BOTTLE Active [id number] 2023 30 Pharmac y Data Transac tion Service Facilit y BUPROPION XL (bupropion HCl), 300 MG, TAB ER 24H, ORAL, LUPIN PHARMACEU, 500 ea. BOTTLE Active [id number] 2023 30 Pharmac y Data Transac tion Service Facilit y BUPROPION XL (bupropion HCl), 300 MG, TAB ER 24H, ORAL, LUPIN PHARMACEU, 500 ea. BOTTLE Active [id number] 2023 30 Pharmac y Data Transac tion Service Facilit y BUPROPION XL (bupropion HCl), 300 MG, TAB ER 24H, ORAL, LUPIN PHARMACEU, 500 ea. BOTTLE Cancele d [id number] : 2023 0 Pharmac y Data Transac tion Service Facilit y BUPROPION XL (bupropion HCl), 300 MG, TAB ER 24H, ORAL, LUPIN PHARMACEU, 500 ea. BOTTLE Active [id number] 2022 30 Pharmac y Data Transac tion Service Facilit y BUPROPION XL (bupropion HCl), 300 MG, TAB ER 24H, ORAL, LUPIN PHARMACEU, 500 ea. BOTTLE Active [id number] 2023 30 Pharmac y Data Transac tion Service Facilit y BUPROPION XL (bupropion HCl), 300 MG, TAB ER 24H, ORAL, LUPIN PHARMACEU, 500 ea. BOTTLE Active [id number] 2023 30 Pharmac y Data Transac tion Service Facilit y BUPROPION XL (bupropion HCl), 300 MG, TAB ER 24H, ORAL, LUPIN PHARMACEU, 90 ea. BOTTLE Active [id number] 4 2023 30 Pharmac y Data Transac tion Service Facilit y BUPROPION XL (bupropion HCl), 300 MG, TAB ER 24H, ORAL, LUPIN PHARMACEU, 90 ea. BOTTLE Active [id number] 4 2023 30 Pharmac y Data Transac tion Service Facilit y BUSPIRONE HCL (BUSPIRONE HCL), 15MG, TABLET, ORAL, TEV [place], 100 ea. BOTTLE Active [id number] 4 2023 90 Pharmac y Data Transac tion Service Facilit y nitrofurant oin macrocrysta ls-monohydr ate 100 mg oral capsule 0 total refill(s ) Ordered No Facilit y Access ONDANSETRON ODT (ondansetro n), 8 MG, TAB RAPDIS, ORAL, RISING PHARM, 30 ea. BOTTLE Cancele d [id number] : 2023 0 Pharmac y Data Transac tion Service Facilit y rizatriptan 5 mg oral tablet, disintegrat ing rizatrip huffman 5 mg oral tablet, disinteg rating Start Date: 08/11/17 Status: Ordered Ordered No Facilit y Access SSD (SILVER SULFADIAZIN E), 1 %, CREAM (G), TOPICAL, 'S LAB, 50 g JAR Candanyel d [id number] : 2023 0 Pharmac y Data Transac [...] Drug allergy (disorder) Nausea active 6 Volodymyr [facility] Immunizations Combined list of available immunizations from the Department of Defense and Veterans Affairs facilities. Immunization Series Date Given Administered By Site Reaction Lot Number CVX Code Drug Government Affairs Manager Status Comments Source COVID-19, mRNA, LNP-S, PF, 30 mcg/0.3 mL dose 2020 TERRI, () Not Given COVID-19, mRNA, LNP-S, PF, 30 mcg/0.3 mL dose DoD COVID-19, mRNA, LNP-S, PF, 30 mcg/0.3 mL dose 2020 ИРИНА [place] (PFR) Not Given COVID-19, mRNA, LNP-S, PF, 30 mcg/0.3 mL dose DoD tetanus, diphtheria, acellular pertu is 2010 Hasmukh t Arm [id number] Gl[employer]SmithK[employer] ne complet ed tetanus, diphtheri a, acellular pertussis 10/08/11 Given Ambulat ory Pharmac y influenza virus vaccine, whole virus 2010 Michael ht Arm [id number] sanofi pasteur complet ed influenza virus vaccine, whole virus 10/08/11 Given Ambulat ory Pharmac y influenza virus vaccine, whole virus 0 2010 [id number] 16 Sanofi Pasteur ([facility]) complet ed influenza virus vaccine, whole virus DoD tetanus toxoid, reduced diphtheria toxoid, and acellular pertu is vaccine, adsorbed 0 [id number] [place] [address] ([facility]) complet ed tetanus toxoid, reduced diphtheri a toxoid, and acellular pertussis vaccine, adsorbed DoD Encounters Combined list of: 1) Encounters from Department of Veterans Affairs facilities going backup to the last 18 months, not all VA inpatient encounters are included; 2) Encounters from the Department of Defense facilities going backup to 280 months. Location Location Details Encounter Type Encounter Number Reason For Visit Attending Provider ADM Date DC Date Status Disposition Source [facility]([place] [employer] [place]) OUTPATIENT [id number] dating u/s to confirm dates. prenata l reg sched on PATRICK ROSA W 04/20 Released w/o Limitations [facility](S D Global Commodity Manager Gy[place]) [facility]([place] [facility] [place]) OUTPATIENT [id number] prenata l reg. pt has dating u/s lmp [id number] CARL BAL 05/10 Released w/o Limitations [facility](S D Global Commodity Manager Operati ons Center) [facility] Global Commodity Manager Live In Housekeeper) OUTPATIENT [id number] NOB late to care 19+ u/s 05/17/11 TEOFILO ROSS 05/22 Released w/o Limitations [facility](N [place] Global Commodity Manager Live In Housekeeper ) [facility] Global Commodity Manager Live In Housekeeper) OUTPATIENT [id number] micheal 31+ wks r/s from today n/s with REJI Guerra 07/27 Released w/o Limitations [facility]([place] Global Commodity [employer] Live In Housekeeper ) [facility] Global Commodity Manager Live In Housekeeper) OUTPATIENT [id number] TEOFILO IGLESIAS 09/10 Released w/o Limitations [facility]([place] [employer] Commodity [employer] Live In Housekeeper ) [facility] Global Commodity Manager Live In Housekeeper) OUTPATIENT [id number] micheal 39wks TEOFILO ROSS 09/19 Released w/o Limitations [facility]([place] [employer] Commodity Manager Live In Housekeeper ) [facility] Global Commodity Manager Live In Housekeeper) TELE CONSULT [id number] 39+wks vag pain getting worst LABOSSLAMONTE RODRIGUEZ 09/24 Referred for Appointment [facility]([place] Global Commodity Manager Live In Housekeeper ) [facility] Global Commodity Manager Live In Housekeeper) OUTPATIENT [id number] TEOFILO Chavarria 09/24 Released w/o Limitations [facility]([place] Global Commodity Manager Live In Housekeeper ) [facility]([place] Global Commodity Manager Live In Housekeeper) OUTPATIENT [id number] micheal 40wks TEOFILO ROSS 09/28 Released w/o Limitations [facility]([place] Global Commodity Manager Live In Housekeeper ) [facility]([place] Global Commodity Manager L&D Triage) OUTPATIENT [id number] @ 40+1wks r/o labor JAMES GLEZ 09/30 Released w/o Limitations [facility](S D Global Commodity Manager L&D Triage) [facility]([place] [employer] Commodity Manager L&D Triage) OUTPATIENT [id number] @ 40+2 wks r/o labor, sent home from triage at [facility] RICCI Man 09/30 Released w/o Limitations [facility](S D Global Commodity Manager L&D Triage) [facility] Global Commodity Manager Live In Housekeeper) OUTPATIENT [id number] micheal 41 + wks TEOFILO ROSS 10/03 Released w/o Limitations [facility]([place] Global Commodity Manager Live In Housekeeper ) [facility]([place] [employer]ity [place] FAU) OUTPATIENT [id number] post due dates MARGARET BUCK 10/04 Released w/o Limitations [facility](S D Global Commodity Manager FAU) [facility] DIRECT TO MTF FROM OTHER THAN ER OR APU [id number] ALICE CASILLAS 10/[address] [facility]([place] Global Commodity Manager L&D Triage) OUTPATIENT [id number] @ 41+2 weeks r\o Labor SAGE WHALEY 10/07 Released w/o Limitations [facility](S D Global Commodity Manager L&D Triage) Volodymyr NGMilan Jaramillo([place] [address]) OUTPATIENT [id number] has the Esure permena nt bc has had pain since MYRNA BRENNER 07/18 Released w/o Limitations [facility](B remerto n Family Medicin e 4) [facility]([place]ia [facility] Obstetric s/Gynecol ogy) OUTPATIENT [id number] FEMALE PELVIC PAIN MARIA DEL CARMEN CROWE M 08/12 Released w/o Limitations [facility](B remerto n Obstetr ics/Telecommunications Engineer ecology ) [facility]([place] Phy Therapy) OUTPATIENT [id number] FEMALE PELVIC PAIN ISAIASPHILL M 08/30 Released w/o Limitations [facility](B remerto n Phy Therapy ) [facility]([place] [facility] Phy Therapy) OUTPATIENT [id number] ISAIASPHILL M 09/16 Released w/o Limitations [facility](B remerto n Phy Therapy ) [facility]([place] Phy Therapy) OUTPATIENT [id number] NEISHA MOLINA 09/16 Released w/o Limitations [facility](B remerto n Phy Therapy ) [facility]([place] [facility] Phy Therapy) OUTPATIENT [id number] ISAIASPHILL Li M 09/20 Released w/o Limitations [facility](B remerto n Phy Therapy ) [facility]([place] Phy Therapy) OUTPATIENT [id number] f/u pelvic floor ISIAASPHILL M 09/30 Released w/o Limitations [facility](B remerto n Phy Therapy ) [facility]([place] Phy Therapy) OUTPATIENT [id number] JAX PATTON 09/30 Released w/o Limitations [facility](B remerto n Phy Therapy ) [facility]([place] Phy Therapy) OUTPATIENT [id number] CHELA ANGULO 10/14 Released w/o Limitations [facility](B remerto n Phy Therapy ) [facility]([place] Phy Therapy) OUTPATIENT [id number] PHILL ESPARZA 10/14 Released w/o Limitations [facility](B remerto n Phy Therapy ) [facility]([place] Phy Therapy) OUTPATIENT [id number] PHILL ESPARZA 10/21 Released w/o Limitations [facility](B remerto n Phy Therapy ) [facility] [id number] OPAL VITO R 10/27 Released w/o Limitations [facility](B remerto n Phy Therapy ) [facility]([place] Phy Therapy) OUTPATIENT [id number] PHILL ESPARZA 11/08 Released w/o Limitations [facility](B remerto n Phy Therapy ) [facility]([place] Phy Therapy) OUTPATIENT [id number] PHILL ESPARZA 11/22 Released w/o Limitations [facility](B remerto n Phy Therapy ) [facility](On license of [facility] 4) TELE CONSULT [id number] Notes Entered by: FUNMI NICHOLAS 31 Jan 2016 1322 ------- ------- ------- ------- -- RH Message RE: Maria D castellanos/Thyr FUNMI Saldivar 01/30 Referred for Appointment [facility](B remerto n Family Medicin e 4) [facility](On license of [facility] 4) OUTPATIENT [id number] maria d castellanos x1w MYRNA BRENNER Jen 02/19 Released w/o Limitations [facility](B remerto n Family Medicin e 4) [facility](On license of [facility] 4) TELE CONSULT [id number] Notes Entered by: FUNMI NICHOLAS 23 Feb 2016 0848 ------- ------- ------- ------- -- RH Message RE: Request ing Rx MYRNA BRENNER Jen 02/22 [facility](B remerto n Family Medicin e 4) [facility](On license of [facility] 4) OUTPATIENT [id number] ingrown hair in pelvic area/pa infpete MYRNA BRENNER 03/05 Released w/o Limitations [facility](B remerto n Family Medicin e 4) [facility] Obstetric s/Gynecol ogy) OUTPATIENT [id number] Pelvic and perinea l pain MARIA DEL CARMEN CROWE 03/22 Released w/o Limitations [facility](B remerto n [facility] ics/Telecommunications Engineer ecology ) [facility] TELE CONSULT [id number] Notes Entered by: PRINCESS LOAIZA CH 28 Mar 2016 1027 ------- ------- ------- ------- -- [facility] MYRNA BRENNER 03/28 [facility](B remerto n Family Medicin e 3) [facility]) TELE CONSULT [id number] Notes Entered by: Radha GRANADOS 27 Apr 2016 1347 ------- ------- ------- ------- -- SANGITA [facility] [id number] [phone] Limited Pelvic Ultraso und 04/20/16 WIN GRANADOS 04/27 [facility] App[facility]ment [facility]) [facility] Obstetric s/Gynecol ogy) TELE CONSULT [id number] Notes Entered by: Chetna KNAPP 01 May 2016 0930 ------- ------- ------- ------- -- Message to Provide MARIA DEL CARMEN Rodriguez 05/01 [facility](B remerto n [facility] ics/Telecommunications Engineer ecology ) [facility] OUTPATIENT [id number] F/U STOMACH CONCERN S MYRNA BRENENR 06/12 Released w/o Limitations [facility](B remerto n Family Medicin e 3) [facility](On license of [facility] 3) TELE CONSULT [id number] MYRNA BRENNER 06/16 [facility](B remerto n Family Medicin e 3) [facility](On license of [facility] 3) TELE CONSULT [id number] Notes Entered by: Dontrell CARY 27 Aug 2016 1044 ------- ------- ------- ------- -- [id number] NAL; PCM: OBDULIO Krishna 08/27 Referred for Appointment [facility](B remerto n Family Medicin e 3) [facility](On license of [facility] 3) OUTPATIENT [id number] f/u pelvic pn MYRNA BRENNER 12/05 Released w/o Limitations [facility](B remerto n Family Medicin e 3) [facility](On license of [facility] 3) OUTPATIENT [id number] Worseni ng cold x1w MYRNA BRENNER T 12/17 Released w/o Limitations [facility](B remerto n Family Medicin e 3) [facility](On license of [facility] 3) OUTPATIENT [id number] looney cx x5d JÚNIOR MCGRATH 02/08 Released w/o Limitations [facility](B remerto n Family Medicin e 3) [facility]erton Obstetric s/Gynecol ogy) OUTPATIENT [id number] Left lower quadran t pain chronic MARIA DEL CARMEN CROWE 03/22 Released w/o Limitations [facility](B remerto n Obstetr ics/Telecommunications Engineer ecology ) [facility] merton Obstetric s/Gynecol ogy) TELE CONSULT [id number] Notes Entered by: Chetna KNAPP 04 Apr 2017 1614 ------- ------- ------- ------- -- TATI Garnica Zak 04/04 [facility]ment [facility] ics/Telecommunications Engineer ecology ) [facility] Obstetric s/Gynecol ogy) OUTPATIENT [id number] [facility] JESSICA BYRD Agustín 04/11 Released w/o Limitations [facility] rem[facility] n [facility] ics/Telecommunications Engineer ecology ) [facility]) TELE CONSULT [id number] Notes Entered by: Luiz LOVE 16 Apr 2017 1013 ------- ------- ------- ------- -- Sangita [facility] [phone] Pelvic Ultraso und 04/13/17 YONY LOVE 04/16 [facility] App[facility]ment [facility](On [facility]) OUTPATIENT [id number] INF BUG BITE ON ABDOM X2D MYRNA BRENNER 04/17 [facility]ased w/o Limitations [facility]B remmaninder n Family Medicin e 3) Procedures Combined list of: [...] SUBSTANCE OR DRUG); SUBCUTANEOUS OR INTRAMUSCULAR 10/30 [facility] REPAIR OF OTHER CURRENT OBSTETRIC LACERATION 10/09 [facility] INJECTION OF RH IMMUNE GLOBULIN 10/09 [facility] ADMINISTRATION OF OYVLMBNEOA-FIIHMGB-XLT TUSSIS, COMBINED 10/09 [facility] POSTOPERATIVE FOLLOW-UP VISIT, NORMALLY INCLUDED IN THE SURGICAL PACKAGE, INDICATE THAT EVALUATION & MANAGEMENT SERVICE WAS PERFORMED DURING A POSTOPERATIVE PERIOD REASON RELATED ORIGINAL PROCEDURE 10/08 [facility] VAGINAL DELIVERY ONLY (WITH OR WITHOUT EPISIOTOMY AND/OR FORCEPS); 10/07 [facility] ULTRASOUND, UTERUS, REAL TIME WITH IMAGE DOCUMENTATION, LIMITED (EG, HEART BEAT, PLACENTAL LOCATION, POSITION AND/OR QUALITATIVE AMNIOTIC FLUID VOLUME), 1 OR MORE FETUSES 10/04 DoD SUBSEQ CARE VISIT () [EXCLS:PATIENTS WHO ARE SEEN FOR A CONDITION UNREL TO / CARE (EG,AN UP RESPIR INFECT;PATIENTS SEEN FOR CONSULTATION ONLY,NOT FOR CONT CARE)] 10/03 [facility] SUBSEQ CARE VISIT () [EXCLS:PATIENTS WHO ARE SEEN FOR A CONDITION UNREL TO / CARE (EG,AN UP RESPIR INFECT;PATIENTS SEEN FOR CONSULTATION ONLY,NOT FOR CONT CARE)] 09/30 [facility] SUBSEQ CARE VISIT () [EXCLS:PATIENTS WHO ARE SEEN FOR A CONDITION UNREL TO / CARE (EG,AN UP RESPIR INFECT;PATIENTS SEEN FOR CONSULTATION ONLY,NOT FOR CONT CARE)] 09/29 [facility] CARE VISIT () [EXCLS:PATIENTS WHO ARE SEEN FOR A CONDITION UNREL TO / CARE (EG,AN UP RESPIR INFECT;PATIENTS SEEN FOR CONSULTATION ONLY,NOT FOR CONT CARE)] 09/28 [facility] SUBS CARE VISIT () [EXCLS:PATIENTS WHO ARE SEEN FOR A CONDITION UNREL TO / CARE (EG,AN UP RESPIR INFECT;PATIENTS SEEN FOR CONSULTATION ONLY,NOT FOR CONT CARE)] 09/24 [facility] SUBSEQ CARE VISIT () [EXCLS:PATIENTS WHO ARE SEEN FOR A CONDITION UNREL TO / CARE (EG,AN UP RESPIR INFECT;PATIENTS SEEN FOR CONSULTATION ONLY,NOT FOR CONT CARE)] 09/19 [facility] SUBS CARE VISIT () [EXCLS:PATIENTS WHO ARE SEEN FOR A CONDITION UNREL TO / CARE (EG,AN UP RESPIR INFECT;PATIENTS SEEN FOR CONSULTATION ONLY,NOT FOR CONT CARE)] 09/10 [facility] SUBSEQ CARE VISIT () [EXCLS:PATIENTS WHO ARE SEEN FOR A CONDITION UNREL TO / CARE (EG,AN UP RESPIR INFECT;PATIENTS SEEN FOR CONSULTATION ONLY,NOT FOR CONT CARE)] 07/27 [facility]D ULTRASOUND, UTERUS, REAL TIME WITH IMAGE DOCUMENTATION, LIMITED (EG, HEART BEAT, PLACENTAL LOCATION, POSITION AND/OR QUALITATIVE AMNIOTIC FLUID VOLUME), 1 OR MORE FETUSES 04/20 DoD CATHETERIZATION AND INTRODUCTION OF SALINE OR CONTRAST MATERIAL FOR SALINE INFUSION SONOHYSTEROGRAPHY (SIS) OR HYSTEROSALPINGOGRAPHY 04/11 [facility] SCREENING PAPANICOLAOU SMEAR; OBTAINING, PREPARING AND CONVEYANCE OF CERVICAL OR VAGINAL SMEAR TO LABORATORY 03/22 [facility] PHYSICAL THERAPY RE-EVALUATION 11/22 [facility] MANUAL THERAPY TECHNIQUES (EG, MOBILIZATION/ MANIPULATION, MANUAL LYMPHATIC DRAINAGE, MANUAL TRACTION), 1 OR MORE REGIONS, EACH 15 MINUTES 11/08 [facility] MANUAL THERAPY TECHNIQUES (EG, MOBILIZATION/ MANIPULATION, MANUAL LYMPHATIC DRAINAGE, MANUAL TRACTION), 1 OR MORE REGIONS, EACH 15 MINUTES 10/27 [facility] MANUAL THERAPY TECHNIQUES (EG, MOBILIZATION/ MANIPULATION, MANUAL LYMPHATIC DRAINAGE, MANUAL TRACTION), 1 OR MORE REGIONS, EACH 15 MINUTES 10/21 [facility] MANUAL THERAPY TECHNIQUES (EG, MOBILIZATION/ MANIPULATION, MANUAL LYMPHATIC DRAINAGE, MANUAL TRACTION), 1 OR MORE REGIONS, EACH 15 MINUTES 10/14 [facility] MANUAL THERAPY TECHNIQUES (EG, MOBILIZATION/ MANIPULATION, MANUAL LYMPHATIC DRAINAGE, MANUAL TRACTION), 1 OR MORE REGIONS, EACH 15 MINUTES 09/30 [facility] MANUAL THERAPY TECHNIQUES (EG, MOBILIZATION/ MANIPULATION, MANUAL LYMPHATIC DRAINAGE, MANUAL TRACTION), 1 OR MORE REGIONS, EACH 15 MINUTES 09/20 [facility] THERAPEUTIC PROCEDURE, 1 OR MORE AREAS, EACH 15 MINUTES; THERAPEUTIC EXERCISES TO DEVELOP STRENGTH AND ENDURANCE, RANGE OF MOTION AND FLEXIBILITY 09/16 [facility] MANUAL THERAPY TECHNIQUES (EG, MOBILIZATION/ MANIPULATION, MANUAL LYMPHATIC DRAINAGE, MANUAL TRACTION), 1 OR MORE REGIONS, EACH 15 MINUTES 09/16 [facility] MANUAL THERAPY TECHNIQUES (EG, MOBILIZATION/ MANIPULATION, MANUAL LYMPHATIC DRAINAGE, MANUAL TRACTION), 1 OR MORE REGIONS, EACH 15 MINUTES 08/30 [facility] INJECTION, KETOROLAC TROMETHAMINE, PER 15 MG 07/21 [facility] SERVICE(S) PROVIDED BETWEEN 10:00 PM AND 8:00 AM AT 24-HOUR FACILITY, IN ADDITION TO BASIC SERVICE 05/27 [facility] Hysterosalpingography With Catheter Contrast Injection Hysterosalpingography With Catheter Contrast Injection 74314 04/15 JESSICA BYRD [facility] Test Test 90581 04/15 JESSICA BYRD [facility] Cervical or vaginal cancer screening; pelvic and clinical breast examination 03/24 MARIA DEL CARMEN CROWE [facility] Screening papanicolaou smear; obtaining, preparing and conveyance of cervical or vaginal smear to laboratory 03/24 MARIA DEL CARMEN CROWE [facility] Physical Therapy Service Re-Evaluation Physical Therapy Service Re-Evaluation 29086 11/22 PHILL ESPARZA [facility] Mobilization Soft Ti ue Mobilization Soft Tissue 18015 11/08 PHILL ESPARZA [facility] Physical Therapy Service Re-Evaluation Physical Therapy Service Re-Evaluation 21205 11/08 PHILL ESPARZA [facility] Physical Therapy Mobilization Joint Physical Therapy Mobilization Joint 21596 10/27 VITO JOSEPH [facility] Physical Therapy: ___ Se ion Segments, 15 Minutes Each Physical Therapy: ___ Session Segments, 15 Minutes Each [id number] 10/27 VITO JOSEPH [facility] Mobilization Soft Ti ue Mobilization Soft Tissue 98324 10/21 PHILL ESPARZA [facility] Physical Therapy: ___ Se ion Segments, 15 Minutes Each Physical Therapy: ___ Session Segments, 15 Minutes Each 43243 10/21 PHILL ESPARZA [facility] Physical Therapy Service Re-Evaluation Physical Therapy Service Re-Evaluation 55062 10/21 PHILL ESPARZA [facility] Mobilization Soft Ti ue Mobilization Soft Tissue 25918 10/14 PHILL ESPARZA [facility] Physical Therapy: ___ Se ion Segments, 15 Minutes Each Physical Therapy: ___ Session Segments, 15 Minutes Each 91114 10/14 PHILL ESPARZA [facility] Physical Therapy Service Re-Evaluation Physical Therapy Service Re-Evaluation 15500 10/14 PHILL ESPARZA [facility] Physical Therapy Mobilization Joint Physical Therapy Mobilization Joint 04991 10/14 CHELA ANGULO [facility] Physical Therapy Mobilization Joint Physical Therapy Mobilization Joint 67729 09/30 JAX PATTON [facility] Physical Therapy: ___ Se ion Segments, 15 Minutes Each Physical Therapy: ___ Session Segments, 15 Minutes Each 63867 09/30 JAX PATTON [facility] Mobilization Soft Ti ue Mobilization Soft Tissue 90802 09/30 PHILL ESPARZA [facility] Physical Therapy Service Re-Evaluation Physical Therapy Service Re-Evaluation 23371 09/30 PHILL ESPARZA [facility] Physical Therapy: ___ Se ion Segments, 15 Minutes Each Physical Therapy: ___ Session Segments, 15 Minutes Each [id number] 09/21 NEISHA MOLINA [facility] Mobilization Soft Ti ue Mobilization Soft Tissue 72895 09/20 PHILL ESPARZA [facility] Physical Therapy Service Re-Evaluation Physical Therapy Service Re-Evaluation 93058 09/20 PHILL ESPARZA [facility] Mobilization Soft Ti ue Mobilization Soft Tissue 11037 09/16 PHILL ESPARZA [facility] Therapy Neuromuscular Re-education Physical Therapy Neuromuscular Re-education 35374 09/16 PHILL ESPARZA [facility] Physical Therapy Service Re-Evaluation Physical Therapy Service Re-Evaluation 44433 09/16 PHILL ESPARZA [facility] Mobilization Soft Ti ue Mobilization Soft Tissue 01226 08/31 ISAIASPHILL Li [facility] Therapy Neuromuscular Re-education Physical Therapy Neuromuscular Re-education 04302 08/31 PHILL ESPARZA [facility] Service Evaluation Physical Therapy Service Evaluation 46061 08/31 PHILL ESPARZA Jesus Non-Stre Test (___ 0,2) Non-Stress Test (___ 0,2) 92845 10/04 MARGARET BUCK Ultrasound Obstetric Limited Evaluation Ultrasound Obstetric Limited Evaluation 61134 10/04 MARGARET BUCK OB Services Antepartum Care Only Subsequent Single Visit OB Services Antepartum Care Only Subsequent Single Visit 0502F 10/03 TEOFILO ROSS OB Services Antepartum Care Only Subsequent Single Visit OB Services Antepartum Care Only Subsequent Single Visit 0502F 09/30 RICCI GONZALEZ Non-Stre Test (___ 0,2) Non-Stress Test (___ 0,2) 56978 09/30 FR[place] WORKMAN Ultrasound Obstetric Limited Evaluation Ultrasound Obstetric Limited Evaluation 59628 09/30 RFANCE WORKMAN OB Services Antepartum Care Only Subsequent Single Visit OB Services Antepartum Care Only Subsequent Single Visit 0502F 09/28 TEOFILO ROSS OB Services Antepartum Care Only Subsequent Single Visit OB Services Antepartum Care Only Subsequent Single Visit 0502F 09/24 TEOFILO ROSS OB Services Antepartum Care Only Subsequent Single Visit OB Services Antepartum Care Only Subsequent Single Visit 0502F 09/19 TEOFILO ROSS OB Services Antepartum Care Only Subsequent Single Visit OB Services Antepartum Care Only Subsequent Single Visit 0502F 09/10 TEOFILO ROSS OB Services Antepartum Care Only Subsequent Single Visit OB Services Antepartum Care Only Subsequent Single Visit 0502F 07/27 REJI SHERWOOD [facility] Ultrasound Obstetric Limited Evaluation Ultrasound Obstetric Limited Evaluation 46876 04/20 PATRICK ROSA [facility] Social History Combined list of available smoking, tobacco, and other social history from [facility] facilities. Social History Type Response Date Comment Sourc e Female 08/11/2017 Ambulatory Pha rmacy Sexual Orientation Ambula tory Pharmacy Gender identity Ambulator y Pharmacy This section is an empty soc ial history section. [facility]D Assessment and Plan Combined list of future care activities from [facility] facilities (e.g., assessment and plan notes, appointments, orders, and referrals). Additional future care activities may be listed in the Plan of Care section. Result Assessment and Plan Date Source Assessment and Plan No data available for this section 01/05/2025 Ambulatory Pharmacy Functional Status Combined list of recent functional and cognitive assessments recorded at [facility] Functional [place] Measurement (FIM) Scale: 1 = Total Assistance (Subject = 0% +), 2 = Maximal Assistance (Subject = 25% +), 3 = Moderate Assistance (Subject = 50% +), 4 = Minimal Assistance (Subject = 75% +), 5 = Supervision, 6 = Modified [place] (Device), 7 = Complete [place] (Timely, Safely). Assessment Date/Time Source Assessment Type Assessment Skill Assessment Score Assessment Details No data available for this section
[2025-01-06 23:33] LABS: Follicle Stimulating Hormone 9.2 mIU/mL
[2025-01-09 21:54] LABS: Estrone 28 pg/mL
[2025-01-10 16:07] LABS: Estrogen 85 pg/mL
[2025-01-20 12:39] LABS: Testosterone, Total 21 ng/dL (2-45)
== END 2025-01-05 08:05 | disposition home or self-care (01) ==
LOC: HO.HMGCLDS 08:04
PROVIDERS: PCP Physician Assistant; Visit Provider Physician Assistant
DX: Z90.721 Acquired absence of ovaries, unilateral (principal); Z90.710 Acquired absence of both cervix and uterus; N80.9 Endometriosis, unspecified
CPT/HCPCS: 36415; 82672; 82679; 83001; 84402; 84403; 84443

== ENCOUNTER 2025-01-27 10:10 | Outpatient (AMB) | payer OTHER, SELFPAY ==
[2025-01-27 10:34] VITALS: BP 110/78; PULSE 74; TEMP 36.4; O2SAT 97; BMI 36.3
--- NOTE | 2025-01-27 10:34 | MHC.PC.OV ---
Vital Signs 01/27/25 10:34 Height 5 ft 7.5 in Weight 235 lb BMI 36.3 BP 110/78 Blood Pressure Location Lt brachial Position Sitting Pulse 74 Pulse Source Pulse Oximeter Temp 97.5 F Temp Source Temporal Artery Scan Pulse Oximetry (%) 97 Oxygen Delivery Method Room Air Intake Visit Reasons: f/u ADHD Med Engraver Required: No Accompanied by: Self / Same As Patient Allergies hydrocodone Adverse Reaction (Intermediate, Verified 01/27/25 10:51) Upset stomach Medication List - Last Reconciled 01/27/25 by Cade Robledo PA-C bupropion HCl XL (Wellbutrin XL) 300 mg PO QAM 30 days buspirone 15 mg PO DAILY PRN clonidine HCl mg PO ONCE methylphenidate HCl ER (Concerta) 36 mg PO DAILY 28 days ondansetron 8 mg PO Q12H PRN 10 days Tobacco use date assessed: 12/28/24 Dental Screening Dental Screen Date: 12/28/24 HPI f/u ADHD Med HPI Details Patient is a 33-year-old female here today for a follow-up visit Patient has a past medical history significant for anxiety, major depressive disorder, obesity, endometriosis. [place] moving out of [place] due to a transfer. She needs paperwork filled out today in office. Recently established care with a psychiatrist whom diagnosed her with ADHD and started gabapentin and clonidine. Unfortunately she has side effects to gabapentin and clonidine. She has been started on Concerta recently which has helped her with her attention focused quite significantly. She unfortunately started to have some GI symptoms namely constipation and bloating. She follow up with urgent care and has been started on stool softener laxatives. Endometriosis: Has had a full hysterectomy with a partial oophorectomy. She reports she has been doing well as far as her pelvic pain though has noted some hormonal changes and will like hormones to be checked. .. MDD/ XIOMARA: Patient continues on Wellbutrin and buspirone which have been very helpful for her mental health. 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 Isaac Hale, Teagan De La Garza, Zan Herrera and colleagues, with an educational ricky from [employer]. Review of Systems Const Denies headache(s) Eyes Denies loss of vision ENT Denies vertigo, Denies dizziness, Denies headache(s) and Denies sore throat Card Denies chest pain, Denies leg edema and Denies lightheadedness Resp Denies cough, Denies hemoptysis and Denies wheezing GI Reports abdominal pain, Denies melena, Reports bloating, Reports change in stool character, Reports constipation, Denies diarrhea and Denies vomiting Denies urinary frequency, Denies dysuria and Denies urinary urgency Musc Denies arthralgias, Denies joint swelling, Denies numbness and Denies tingling Neuro Denies Abnormal speech present, Denies behavioral changes, Denies vertigo, Denies dizziness, Denies headache(s), Denies loss of vision, Denies memory loss, Denies numbness and Denies tingling Psych Denies anxiety, Denies behavioral changes, Denies depression, Denies memory loss and Denies panic attacks Howard/Lymph Denies easy bleeding and Denies easy bruising Aller/Immun Denies wheezing Physical exam (Primary Care) Vital Signs: Last Vital Signs Temp 97.5 F 01/27/25 10:34 Pulse 74 01/27/25 10:34 BP 110/78 01/27/25 10:34 Pulse Ox 97 01/27/25 10:34 Oxygen Delivery Method Room Air 01/27/25 10:34 BMI result Body Mass Index 36.3 Tobacco/Smoking Status: Tobacco use Status Tobacco use date assessed 12/28/24 01/27/25 10:41 Patient Tobacco Use Status Former Tobacco user 01/27/25 10:41 e-Cigarette/Vaping Use Never Used 01/27/25 10:41 Thrive Assessment: Date of Thrive Assessment Date Thrive assessed 12/28/24 01/27/25 10:41 Const General: healthy appearing, no acute distress, alert and awake Nutritional Appearance: well nourished Orientation/consciousness: oriented to person, oriented to place and oriented to time HENMT Ears: TM's normal bilaterally General nose exam: Normal nasal mucous membranes and turbinates present Eyes Conjunctivae: conjunctivae normal Sclerae: sclerae normal Pupils: Equal, round and reactive pupils present Neck Neck: Yes no lymphadenopathy and Yes no JVD Thyroid: Thyroid normal Carotids: no bruits Resp Effort & Inspection: normal respiratory effort and not tachypneic Auscultation: no crackles, no rales, no rhonchi and no wheezes Cardio Rate: regular rate Rhythm: regular rhythm Heart sounds: no murmurs and normal S1 and S2 GI Palpation (GI): Soft to palpation, nontender, no hepatomegaly and no splenomegaly Auscultation: normal bowel sounds Skin General skin exam: no rashes or lesions noted and dry skin Neuro General: oriented to person, oriented to place and oriented to time Cranial nerves: Yes Equal, round and reactive pupils present Speech: No Abnormal speech present Gait exam (Neuro): Normal gait present Motor exam (neuro): no tremor noted Extrem Right upper extremity: full ROM Left upper extremity: full ROM Right lower extremity: full ROM; no edema Left lower extremity: full ROM; no edema Psych Mental Status: mental status grossly normal Speech and movement: Normal speech and movement present Affect: normal affect Attitude: cooperative Thought process: Normal thought process present Coding Level of Care Code Est Pt Level 4 (58530) Diagnoses Attention deficit hyperactivity disorder (ADHD), predominantly inattentive type F90.0 Attention deficit-hyperactivity disorder type: predominantly inattentive Other constipation K59.09 Constipation type: other constipation type Assessment & Plan Assessment & Plan (1) ADHD: Code(s): F90.9 - Attention-deficit hyperactivity disorder, unspecified type Category: Medical Qualifiers: Attention deficit-hyperactivity disorder type: predominantly inattentive Qualified Code(s): F90.0 - Attention-deficit hyperactivity disorder, predominantly inattentive type Plan: Patient has followed up with a psychiatrist and underwent clinical evaluation for ADHD and was diagnosed with ADHD diagnosis. Was started on gabapentin and clonidine though has had intolerable side effects of this medication. She has started Concerta 56 mg which has been helpful for her attention focus. She would like to continue this medication for now. (2) Constipation: Code(s): K59.00 - Constipation, unspecified Category: Medical Qualifiers: Constipation type: other constipation type Qualified Code(s): K59.09 - Other constipation Plan: Patient has been experiencing GI symptoms such as bloating and pain. Often does have constipation. Likely has IBS versus symptoms of the endometriosis. She would like to see a associate pastor for further investigation. For now will continue GI regimen. Orders: Orders Testosterone, Free/Total 01/27/25 N80.9 - Endometriosis, unspecified Comprehensive [place]. Panel Fast 01/27/25 Z13.1 - Encounter for screening for diabetes mellitus Complete Blood Count no Diff 01/27/25 Z13.1 - Encounter for screening for diabetes mellitus Referrals Gastroenterology Referral K59.09 - Other constipation Medications: Refilled methylphenidate HCl ER (Concerta) Partial Fill upon patient request. 36 mg PO DAILY 28 tabs 0RF 28 days F90.0 - Attention-deficit hyperactivity disorder, predominantly inattentive type
--- OUTSIDE RECORDS SUMMARY | 2025-01-27 11:54 | XMS_ITS | Continuity of Care Document ---
Author Name [facility] Organization [facility] Care Team Providers Care Catering Assistant Name Role Phone [facility] Unavailable Unavailable Problems Combined list of problems [...] cond or prior compl deliver Inactive Condition [facility] incoordinate uterine contractions Inactive Condition [facility] visit for: administrative purpose Inactive Condition [facility] Supervision Of Normal Inactive Condition [facility] intolerance of glucose-galactose Active Condition DoD Need For Prophylactic Immunotherapy RhoGAM Inactive Condition DoD preg complications: antepartum cond or prior comp delivery Inactive Condition [facility] heartburn Active Condition DoD sciatica Active [...] ORAL, LUPIN PHARMACEU, 500 ea. BOTTLE Active [id number] 2023 30 Pharmac y Data Transac tion Service Facilit y BUPROPION XL (bupropion HCl), 300 MG, TAB ER 24H, ORAL, LUPIN PHARMACEU, 500 ea. BOTTLE Active [id number] 4 2023 30 Pharmac y Data Transac tion Service Facilit y BUPROPION XL (bupropion HCl), 300 MG, TAB ER 24H, ORAL, LUPIN PHARMACEU, 500 ea. BOTTLE Active [id number] 2023 30 Pharmac y Data Transac tion Service Facilit y BUPROPION XL (bupropion HCl), 300 MG, TAB ER 24H, ORAL, LUPIN PHARMACEU, 500 ea. BOTTLE Cancele d [id number] : 2023 0 Pharmac y Data Transac tion Service Facilit y BUPROPION XL (bupropion HCl), 300 MG, TAB ER 24H, ORAL, LUPIN PHARMACEU, 500 ea. BOTTLE Active [id number] 3 2022 30 Pharmac y Data Transac tion Service Facilit y BUPROPION XL (bupropion HCl), 300 MG, TAB ER 24H, ORAL, LUPIN PHARMACEU, 500 ea. BOTTLE Active [id number] 2023 30 Pharmac y Data Transac tion Service Facilit y BUPROPION XL (bupropion HCl), 300 MG, TAB ER 24H, ORAL, LUPIN PHARMACEU, 500 ea. BOTTLE Active [id number] 4 2023 30 Pharmac y Data Transac tion Service Facilit y BUPROPION XL (bupropion HCl), 300 MG, TAB ER 24H, ORAL, LUPIN PHARMACEU, 90 ea. BOTTLE Active [id number] 4 2023 30 Pharmac y Data Transac tion Service Facilit y BUPROPION XL (bupropion HCl), 300 MG, TAB ER 24H, ORAL, LUPIN PHARMACEU, 90 ea. BOTTLE Active [id number] 2023 30 Pharmac y Data Transac tion Service Facilit y BUSPIRONE HCL (BUSPIRONE HCL), 15MG, TABLET, ORAL, TEV [place], 100 ea. BOTTLE Active [id number] 4 2023 90 Pharmac y Data Transac tion Service Facilit y nitrofurant oin macrocrysta ls-monohydr ate 100 mg oral capsule 0 total refill(s ) Ordered 2016 No Facilit y Access ONDANSETRON ODT (ondansetro n), 8 MG, TAB RAPDIS, ORAL, RISING PHARM, 30 ea. BOTTLE Cancele d [id number] : 2023 0 Pharmac y Data Transac tion Service Facilit y rizatriptan 5 mg oral tablet, disintegrat ing rizatrip huffman 5 mg oral tablet, disinteg rating Start Date: 08/11/17 Status: Ordered Repeat number: 1 Ordered 2016 No Facilit y Access SSD (SILVER SULFADIAZIN E), 1 %, CREAM (G), TOPICAL, 'S LAB, 50 g JAR Cancele d [id number] : 2023 0 Pharmac y Data Transac [...] Nausea Active 6 Nausea, upset stomach, constipation Unknown Organizat ion HYDROCODON E-ACETAMIN OPHEN (HYDROCODO NE BIT/ACETAM INOPHE Drug allergy (disorder) Nausea active 6 formerly [facility] Immunizations Combined list of available immunizations from the Department of Defense and Veterans Affairs facilities. Immunization Series Date Given Administered By Site Reaction Lot Number CVX Code Drug Heel Cementer Machine Status Comments Source COVID-19, mRNA, LNP-S, PF, 30 mcg/0.3 mL dose 2020 TERRI, () Not Given COVID-19, mRNA, LNP-S, PF, 30 mcg/0.3 mL dose DoD COVID-19, mRNA, LNP-S, PF, 30 mcg/0.3 mL dose 2020 [employer] [place] (PFR) Not Given COVID-19, mRNA, LNP-S, PF, 30 mcg/0.3 mL dose DoD tetanus, diphtheria, acellular pertu is 2010 zzLef t Arm [id number] [address] MDKlTASCET ne complet ed tetanus, diphtheri a, acellular pertussis 10/08/11 Given Ambulat ory Pharmac y influenza virus vaccine, whole virus 2010 zzRig ht Arm [id number] 16 sanofi pasteur complet ed influenza virus vaccine, whole virus 10/08/11 Given Ambulat ory Pharmac y influenza virus vaccine, whole virus 0 2010 [id number] 16 Sanofi Pasteur (PMC) complet ed influenza virus vaccine, whole virus DoD tetanus toxoid, reduced diphtheria toxoid, and acellular pertu is vaccine, adsorbed [id number] ([place]) complet ed tetanus toxoid, reduced diphtheri a [...] ADM Date DC Date Status Disposition Source [facility]([place] [employer] [place]) OUTPATIENT [id number] dating u/s to confirm dates. prenata l reg sched on PATRICK ROSA W 04/20 Released w/o Limitations [facility]([place] [employer] [place]) [facility]([place] [employer] [facility] [place]) OUTPATIENT [id number] prenata l reg. 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) OUTPATIENT [id number] NOB late to care 19+ u/s 05/17/11 TEOFILO ROSS 05/22 Released w/o Limitations [facility]([place] [employer] Supervisor Outpatient Receptionist ) [facility](C [employer] Supervisor Outpatient Receptionist) OUTPATIENT [id number] micheal 31+ wks r/s from today n/s with REJI Guerra 07/27 Released w/o Limitations [facility]([place] [employer] Supervisor Outpatient Receptionist ) [facility]([place] [employer] Supervisor Outpatient Receptionist) OUTPATIENT [id number] TEOFILO IGLESIAS 09/10 Released w/o Limitations [facility]([place] [employer] Supervisor Outpatient Receptionist ) [facility]([place] [employer] Supervisor Outpatient Receptionist) OUTPATIENT [id number] micheal 39wks TEOFILO ROSS 09/19 Released w/o Limitations [facility]([place] [employer] Supervisor Outpatient Receptionist ) [facility]([place] [employer] Supervisor Outpatient Receptionist) TELE CONSULT [id number] 39+wks vag pain getting worst LABOSSLAMONTE RODRIGUEZ 09/24 Referred for Appointment [facility]([place] [employer] Supervisor Outpatient Receptionist ) [facility] Carbon Electrodes Supervisor Outpatient Receptionist) OUTPATIENT [id number] TEOFILO Chavarria 09/24 Released w/o Limitations [facility]([place] [employer] Supervisor Outpatient Receptionist ) [facility] Carbon Electrodes Supervisor Outpatient Receptionist) OUTPATIENT [id number] micheal 40wks TEOFILO ROSS 09/28 Released w/o Limitations [facility]([place] [employer] Supervisor Outpatient Receptionist ) [facility]([place] [employer] Supervisor L&D Triage) OUTPATIENT [id number] @ 40+1wks r/o labor JAMES GLEZ 09/30 Released w/o Limitations [facility]([place] [employer]des Supervisor L&D Triage) [facility]([place] [employer] Supervisor L&D Triage) OUTPATIENT [id number] @ 40+2 wks r/o labor, sent home from triage at [facility] RICCI GONZALEZ 09/30 Released w/o Limitations [facility]([place] [employer] Supervisor L&D Triage) [facility] 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 Electrodes Supervisor Outpatient Receptionist) OUTPATIENT [id number] micheal 41 + wks TEOFILO ROSS 10/03 Released w/o Limitations [facility]([place] [employer] Supervisor Outpatient Receptionist ) [facility]([place] [employer] Supervisor FAU) OUTPATIENT [id number] post due dates MARGARET BUCK 10/04 Released w/o Limitations [facility]([place] [employer] Supervisor FAU) [facility] DIRECT TO MTF FROM OTHER THAN ER OR APU [id number] ALICE CASILLAS 10/07 DISCHARGED HOME [facility]([place] [employer] Supervisor L&D Triage) OUTPATIENT [id number] @ 41+2 weeks r\o Labor SAGE WHALEY 10/07 Released w/o Limitations [facility]([place] [employer] Supervisor L&D Triage) Volodymyr Jaramillo([facility] 4) OUTPATIENT [id number] has the Esure permena nt bc has had pain since MYRNA BRENNER 07/18 Released w/o Limitations [facility](B remerto n Family Medicin e 4) [facility] Obstetric s/Gynecol ogy) OUTPATIENT [id number] FEMALE PELVIC PAIN JIMJACQUELYNCELESTINO MARIA DEL CARMEN M 08/12 Released w/o Limitations [facility](B remerto n Obstetr ics/Sales Correspondent ecology ) [facility] Phy Therapy) OUTPATIENT [id number] FEMALE PELVIC PAIN ISAIAS, PHILL M 08/30 Released w/o Limitations [facility](B remerto n Phy Therapy ) [facility] [facility]([place] Phy Therapy) OUTPATIENT [id number] ISAIAS, PHILL M 09/16 Released w/o Limitations [facility](B remerto n Phy Therapy ) [facility] [facility]([place] Phy Therapy) OUTPATIENT [id number] NEISHA MOLINA 09/16 Released w/o Limitations [facility](B remerto n Phy Therapy ) [facility] [facility] Phy Therapy) OUTPATIENT [id number] ISAIAS, PHILL M 09/20 Released w/o Limitations [facility](B remerto n Phy Therapy ) [facility]([place] Phy Therapy) OUTPATIENT [id number] f/u pelvic floor ISAIAS, PHILL M 09/30 Released w/o Limitations [facility](B remerto n Phy Therapy ) [facility]([place] Phy Therapy) OUTPATIENT [id number] JAX PATTON 09/30 Released w/o Limitations [facility](B remerto n Phy Therapy ) [facility] Phy Therapy) OUTPATIENT [id number] CHELA ANGULO 10/14 Released w/o Limitations [facility](B remerto n Phy Therapy ) [facility] Phy Therapy) OUTPATIENT [id number] PHILL ESPARZA 10/14 Released w/o Limitations [facility](B remerto n Phy Therapy ) [facility] Phy Therapy) OUTPATIENT [id number] PHILL ESPARZA 10/21 Released w/o Limitations [facility](B remerto n Phy Therapy ) [facility] Phy Therapy) OUTPATIENT [id number] VITO JOSEPH Zak 10/27 Released w/o Limitations [facility](B remerto n Phy Therapy ) [facility] Phy Therapy) OUTPATIENT [id number] PHILL ESPARZA 11/08 Released w/o Limitations [facility](B remerto n Phy Therapy ) [facility]([place] Phy Therapy) OUTPATIENT [id number] PHILL ESPARZA 11/22 Released w/o Limitations [facility](B remerto n Phy Therapy ) [facility] 4) TELE CONSULT [id number] Notes Entered by: FUNMI NICHOLAS 31 Jan 2016 1322 ------- ------- ------- ------- -- RH Message RE: Maria D castellanos/Thyr FUNMI Saldivar 01/30 Referred for Appointment [facility](B remerto n Family Medicin e 4) [facility] 4[facility] OUTPATIENT [id number] maria d castellanos x1w MYRNA BRENNER 02/19 Released w/o Limitations [facility](B remerto n Family Medicin e 4) [facility]([facility] 4) TELE CONSULT [id number] Notes Entered by: FUNMI NICHOLAS 23 Feb 2016 0848 ------- ------- ------- ------- -- RH Message RE: Request ing MYRNA Bowden 02/22 [facility] n Family Medicin e 4) [facility] 4[facility] OUTPATIENT [id number] ingrown hair in pelvic area/pa MYRNA Pace 03/05 Released w/o Limitations [facility](B remerto n Family Medicin e 4) [facility] Obstetric s/Gynecol ogy) OUTPATIENT [id number] Pelvic and perinea l pain MARIA DEL CARMEN CROWE 03/22 Released w/o Limitations [facility](B remerto n [facility] ics/Sales Correspondent ecology ) [facility] 3) TELE CONSULT [id number] Notes Entered by: PRINCESS LOAIZA CH 28 Mar 2016 1027 ------- ------- ------- ------- -- [facility] MYRNA Carpenter 03/28 [facility](B remerto n Family Medicin e 3) [facility] [facility]) TELE CONSULT [id number] Notes Entered by: Radha GRANADOS 27 Apr 2016 1347 ------- ------- ------- ------- -- [facility] [phone] Limited Pelvic Ultraso und 04/20/16 WIN GRANADOS 04/27 [facility]) [facility] [facility] Obstetric s/Gynecol ogy) TELE CONSULT [id number] Notes Entered by: Chetna KNAPP 01 May 2016 0930 ------- ------- ------- ------- -- Message to Provide MARIA DEL CARMEN Rodriguez 05/01 [facility](B remerto n [facility] ics/Sales Correspondent ecology ) [facility] 3) OUTPATIENT [id number] F/U STOMACH CONCERN S MYRNA BRENNER 06/12 Released w/o Limitations [facility](B remerto n Family Medicin e 3) [facility]([facility] 3) TELE CONSULT [id number] MYRNA BRENNER 06/16 [facility](B remerto n Family Medicin e 3) [facility] [facility]([facility] 3) TELE CONSULT [id number] Notes Entered by: Dontrell CARY 27 Aug 2016 1044 ------- ------- ------- ------- -- [id number] NAL; PCM: OBDULIO Krishna 08/27 Referred for Appointment [facility](B remerto n Family Medicin e 3) [facility] 3) OUTPATIENT [id number] f/u pelvic pn MYRNA BRENNER T 12/05 Released w/o Limitations [facility](B remerto n Family Medicin e 3) [facility] 3) OUTPATIENT [id number] Worseni ng cold x1w MYRNA BRENNER T 12/17 Released w/o Limitations [facility](B remerto n Family Medicin e 3) [facility] 3) OUTPATIENT [id number] looney cx x5d JÚNIOR MCGRATH 02/08 Released w/o Limitations [facility](B remerto n Family Medicin e 3) [facility] [facility] Obstetric s/Gynecol ogy) OUTPATIENT [id number] Left lower quadran t pain chronic MARIA DEL CARMEN CROWE 03/22 Released w/o Limitations [facility](B remerto n Obstetr ics/Sales Correspondent ecology ) [facility]([place] Obstetric s/Gynecol ogy) TELE CONSULT [id number] Notes Entered by: Chetna KNAPP 04 Apr 2017 1614 ------- ------- ------- ------- -- [facility] TATI Arriaga Zak 04/04 [facility] for [facility](Francisco Javier gaffney [facility] ics/Sales Correspondent ecology ) [facility] Obstetric s/Gynecol ogy) OUTPATIENT [id number] G JESSICA BYRD S 04/11 Released w/o Limitations [facility](Francisco Javier gaffney [facility] ics/Sales Correspondent ecology ) [facility]) TELE CONSULT [id number] Notes Entered by: Luiz LOVE 16 Apr 2017 1013 ------- ------- ------- ------- -- [facility] [phone] Pelvic Ultraso und 04/13/17 YONY LOVE 04/16 [facility] for [facility] 3) OUTPATIENT [id number] INF BUG BITE ON ABDOM X2D MYRNA BRENNER 04/17 [facility]ased w/o Limitations [facility]isco Javier gaff[facility] Family Medicin e 3) [address] Mauricio Elizbaeth Outside Documentat ion Only [id number] 01/06 Discharge Disposition: Home or Self Care [id number] [place] Procedures Combined list of: 1) Procedures from [...] SUBSTANCE OR DRUG); SUBCUTANEOUS OR INTRAMUSCULAR 10/30 [facility] REPAIR OF OTHER CURRENT OBSTETRIC LACERATION 10/09 [facility] INJECTION OF RH IMMUNE GLOBULIN 10/09 DoD ADMINISTRATION OF [id number] TUSSIS, COMBINED 10/09 [facility] POSTOPERATIVE FOLLOW-UP VISIT, NORMALLY INCLUDED IN THE SURGICAL PACKAGE, INDICATE THAT EVALUATION & MANAGEMENT SERVICE WAS PERFORMED DURING A POSTOPERATIVE PERIOD REASON RELATED ORIGINAL PROCEDURE 10/08 [facility] VAGINAL DELIVERY ONLY (WITH OR WITHOUT EPISIOTOMY AND/OR FORCEPS); 10/07 [facility] ULTRASOUND, UTERUS, REAL TIME WITH IMAGE DOCUMENTATION, LIMITED (EG, HEART BEAT, PLACENTAL LOCATION, POSITION AND/OR QUALITATIVE AMNIOTIC FLUID VOLUME), 1 OR MORE FETUSES 10/04 [facility] SUBS CARE VISIT () [EXCLS:PATIENTS WHO ARE SEEN FOR A CONDITION UNREL TO / CARE (EG,AN UP RESPIR INFECT;PATIENTS SEEN FOR CONSULTATION ONLY,NOT FOR CONT CARE)] 10/03 [facility] SUBSEQ CARE VISIT () [EXCLS:PATIENTS WHO ARE SEEN FOR A CONDITION UNREL TO / CARE (EG,AN UP RESPIR INFECT;PATIENTS SEEN FOR CONSULTATION ONLY,NOT FOR CONT CARE)] 09/30 [facility] SUBSEQ CARE VISIT () [EXCLS:PATIENTS WHO ARE SEEN FOR A CONDITION UNREL TO / CARE (EG,AN UP RESPIR INFECT;PATIENTS SEEN FOR CONSULTATION ONLY,NOT FOR CONT CARE)] 09/29 [facility] SUBSEQ CARE VISIT () [EXCLS:PATIENTS WHO ARE SEEN FOR A CONDITION UNREL TO / CARE (EG,AN UP RESPIR INFECT;PATIENTS SEEN FOR CONSULTATION ONLY,NOT FOR CONT CARE)] 09/28 [facility] SUBSEQ CARE VISIT () [EXCLS:PATIENTS WHO ARE SEEN FOR A CONDITION UNREL TO / CARE (EG,AN UP RESPIR INFECT;PATIENTS SEEN FOR CONSULTATION ONLY,NOT FOR CONT CARE)] 09/24 [facility] SUBSEQ CARE VISIT () [EXCLS:PATIENTS WHO ARE SEEN FOR A CONDITION UNREL TO / CARE (EG,AN UP RESPIR INFECT;PATIENTS SEEN FOR CONSULTATION ONLY,NOT FOR CONT CARE)] 09/19 [facility] SUBSEQ CARE VISIT () [EXCLS:PATIENTS WHO ARE SEEN FOR A CONDITION UNREL TO / CARE (EG,AN UP RESPIR INFECT;PATIENTS SEEN FOR CONSULTATION ONLY,NOT FOR CONT CARE)] 09/10 [facility] SUBSEQ CARE VISIT () [EXCLS:PATIENTS WHO ARE SEEN FOR A CONDITION UNREL TO / CARE (EG,AN UP RESPIR INFECT;PATIENTS SEEN FOR CONSULTATION ONLY,NOT FOR CONT CARE)] 07/27 [facility] ULTRASOUND, UTERUS, REAL TIME WITH IMAGE DOCUMENTATION, LIMITED (EG, HEART BEAT, PLACENTAL LOCATION, POSITION AND/OR QUALITATIVE AMNIOTIC FLUID VOLUME), 1 OR MORE FETUSES 04/20 [facility] CATHETERIZATION AND INTRODUCTION OF SALINE OR CONTRAST MATERIAL FOR SALINE INFUSION SONOHYSTEROGRAPHY (SIS) OR HYSTEROSALPINGOGRAPHY 04/11 [facility] SCREENING PAPANICOLAOU SMEAR; OBTAINING, PREPARING AND CONVEYANCE OF CERVICAL OR VAGINAL SMEAR TO LABORATORY 03/22 [facility] PHYSICAL THERAPY RE-EVALUATION 11/22 [facility] MANUAL THERAPY TECHNIQUES (EG, MOBILIZATION/ MANIPULATION, MANUAL LYMPHATIC DRAINAGE, MANUAL TRACTION), 1 OR MORE REGIONS, EACH 15 MINUTES 11/08 [facility] MANUAL THERAPY TECHNIQUES (EG, MOBILIZATION/ MANIPULATION, MANUAL LYMPHATIC DRAINAGE, MANUAL TRACTION), 1 OR MORE REGIONS, EACH 15 MINUTES 10/27 [facility] MANUAL THERAPY TECHNIQUES (EG, MOBILIZATION/ MANIPULATION, MANUAL LYMPHATIC DRAINAGE, MANUAL TRACTION), 1 OR MORE REGIONS, EACH 15 MINUTES 10/21 [facility] MANUAL THERAPY TECHNIQUES (EG, MOBILIZATION/ MANIPULATION, MANUAL LYMPHATIC DRAINAGE, MANUAL TRACTION), 1 OR MORE REGIONS, EACH 15 MINUTES 10/14 [facility] MANUAL THERAPY TECHNIQUES (EG, MOBILIZATION/ MANIPULATION, MANUAL LYMPHATIC DRAINAGE, MANUAL TRACTION), 1 OR MORE REGIONS, EACH 15 MINUTES 09/30 [facility] MANUAL THERAPY TECHNIQUES (EG, MOBILIZATION/ MANIPULATION, MANUAL LYMPHATIC DRAINAGE, MANUAL TRACTION), 1 OR MORE REGIONS, EACH 15 MINUTES 09/20 [facility] THERAPEUTIC PROCEDURE, 1 OR MORE AREAS, EACH 15 MINUTES; THERAPEUTIC EXERCISES TO DEVELOP STRENGTH AND ENDURANCE, RANGE OF MOTION AND FLEXIBILITY 09/16 [facility] MANUAL THERAPY TECHNIQUES (EG, MOBILIZATION/ MANIPULATION, MANUAL LYMPHATIC DRAINAGE, MANUAL TRACTION), 1 OR MORE REGIONS, EACH 15 MINUTES 09/16 [facility] MANUAL THERAPY TECHNIQUES (EG, MOBILIZATION/ MANIPULATION, MANUAL LYMPHATIC DRAINAGE, MANUAL TRACTION), 1 OR MORE REGIONS, EACH 15 MINUTES 08/30 [facility] INJECTION, KETOROLAC TROMETHAMINE, PER 15 MG 07/21 [facility] SERVICE(S) PROVIDED BETWEEN 10:00 PM AND 8:00 AM AT 24-HOUR FACILITY, IN ADDITION TO BASIC SERVICE 05/27 [facility] Hysterosalpingography With Catheter Contrast Injection Hysterosalpingography With Catheter Contrast Injection [id number] 04/15 JESSICA BYRD [facility] Test Test [id number] 04/15 JESSICA BYRD [facility] Cervical or vaginal cancer screening; pelvic and clinical breast examination 03/24 MARIA DEL CARMEN CROWE [facility] Screening papanicolaou smear; obtaining, preparing and conveyance of cervical or vaginal smear to laboratory 03/24 MARIA DEL CARMEN CROWE [facility] Physical Therapy Service Re-Evaluation Physical Therapy Service Re-Evaluation 35748 11/22 PHILL ESPARZA [facility] Mobilization Soft Ti ue Mobilization Soft Tissue 51135 11/08 PHILL ESPARZA [facility] Physical Therapy Service Re-Evaluation Physical Therapy Service Re-Evaluation 31875 11/08 ISAIAS, PHILL Cobb [facility] Physical Therapy Mobilization Joint Physical Therapy Mobilization Joint 06126 10/27 VITO JOSEPH [facility] Physical Therapy: ___ Se ion Segments, 15 Minutes Each Physical Therapy: ___ Session Segments, 15 Minutes Each 10781 10/27 VITO JOSEPH [facility] Mobilization Soft Ti ue Mobilization Soft Tissue 33168 10/21 ISAIAS, PHILL Cobb [facility] Physical Therapy: ___ Se ion Segments, 15 Minutes Each Physical Therapy: ___ Session Segments, 15 Minutes Each 60346 10/21 ISAIAS PHILL Cobb [facility] Physical Therapy Service Re-Evaluation Physical Therapy Service Re-Evaluation 96838 10/21 ISAIAS, PHILL Cobb [facility] Mobilization Soft Ti ue Mobilization Soft Tissue 85070 10/14 ISAIAS PHILL Cobb [facility] Physical Therapy: ___ Se ion Segments, 15 Minutes Each Physical Therapy: ___ Session Segments, 15 Minutes Each 42568 10/14 ISAIAS, PHILL Cobb [facility] Physical Therapy Service Re-Evaluation Physical Therapy Service Re-Evaluation 93636 10/14 ISAIAS PHILL Cobb [facility] Physical Therapy Mobilization Joint Physical Therapy Mobilization Joint 47301 10/14 CHELA ANGULO [facility] Physical Therapy Mobilization Joint Physical Therapy Mobilization Joint 83173 09/30 JAX PATTON [facility] Physical Therapy: ___ Se ion Segments, 15 Minutes Each Physical Therapy: ___ Session Segments, 15 Minutes Each 28305 09/30 JAX PTATON [facility] Mobilization Soft Ti ue Mobilization Soft Tissue 21696 09/30 ISAIAS PHILL Cobb [facility] Physical Therapy Service Re-Evaluation Physical Therapy Service Re-Evaluation 04252 09/30 ISAIAS PHILL [facility] Physical Therapy: ___ Se ion Segments, 15 Minutes Each Physical Therapy: ___ Session Segments, 15 Minutes Each 77133 09/21 NEISHA MOLINA [facility] Mobilization Soft Ti ue Mobilization Soft Tissue 16602 09/20 ISAIAS PHILL [facility] Physical Therapy Service Re-Evaluation Physical Therapy Service Re-Evaluation 21807 09/20 ISAIAS PHILL [facility] Mobilization Soft Ti ue Mobilization Soft Tissue 25360 09/16 ISAIAS PHILL [facility] Physical Therapy Neuromuscular Re-education Physical Therapy Neuromuscular Re-education 40740 09/16 ISAIAS, PHILL [facility] Physical Therapy Service Re-Evaluation Physical Therapy Service Re-Evaluation 28816 09/16 ISAIAS PHILL [facility] Mobilization Soft Ti ue Mobilization Soft Tissue 74947 08/31 ISAIAS, PHILL [facility] Physical Therapy Neuromuscular Re-education Physical Therapy Neuromuscular Re-education 17200 08/31 ISAIAS PHILL [facility] Physical Therapy Service Evaluation Physical Therapy Service Evaluation 07550 08/31 ISAIAS PHILL [facility] Non-Stre Test (___ 0,2) Non-Stress Test (___ 0,2) 57451 10/04 MARGARET BUCK [facility] Ultrasound Obstetric Limited Evaluation Ultrasound Obstetric Limited Evaluation 76081 10/04 MARGARET BUCK [facility] OB Services Antepartum Care Only Subsequent Single Visit OB Services Antepartum Care Only Subsequent Single Visit 0502F 10/03 TEOFILO ROSS OB Services Antepartum Care Only Subsequent Single Visit OB Services Antepartum Care Only Subsequent Single Visit 0502F 09/30 RICCI GONZALEZ [facility] Non-Stre Test (___ 0,2) Non-Stress Test (___ 0,2) 51023 09/30 FRANCE WORKMAN Ultrasound Obstetric Limited Evaluation Ultrasound Obstetric Limited Evaluation 93478 09/30 FRANCE WORKMAN OB Services Antepartum Care Only Subsequent Single Visit OB Services Antepartum Care Only Subsequent Single Visit 0502F 09/28 TEOFILO ROSS OB Services Antepartum Care Only Subsequent Single Visit OB Services Antepartum Care Only Subsequent Single Visit 0502F 09/24 TEOFILO ROSS OB Services Antepartum Care Only Subsequent Single Visit OB Services Antepartum Care Only Subsequent Single Visit 0502F 09/19 TEOFILO ROSS [facility] OB Services Antepartum Care Only Subsequent Single Visit OB Services Antepartum Care Only Subsequent Single Visit 0502F 09/10 TEOFILO ROSS [facility] OB Services Antepartum Care Only Subsequent Single Visit OB Services Antepartum Care Only Subsequent Single Visit 0502F 07/27 REJI SHERWOOD [facility] Ultrasound Obstetric Limited Evaluation Ultrasound Obstetric Limited Evaluation 86506 04/20 PATRICK ROSA [facility] Social History Combined list of available smoking, tobacco, and other social history from Department of Defense and Veterans Affairs facilities. Social History Type Response Date Comment Sourc e Sex Representation Female 08/11/2017 Unknow n Organization Sexual Orientation Ambula tory Pharmacy Gender identity Ambulator y Pharmacy This section is an empty soc ial history section. [facility] Assessment and Plan Combined list of future care activities from Department of Defense and Veterans Affairs facilities (e.g., assessment and plan notes, appointments, orders, and referrals). Additional future care activities may be listed in the Plan of Care section. Result Assessment and Plan Date Source Assessment and Plan No data available for this section 01/27/2025 Ambulatory Pharmacy Functional Status Combined list of recent functional and cognitive assessments recorded at Department of Defense and Veterans Affairs (VA).VA Functional [place] Measurement (FIM) Scale: 1 = Total Assistance (Subject = 0% +), 2 = Maximal Assistance (Subject = 25% +), 3 = Moderate Assistance (Subject = 50% +), 4 = Minimal Assistance (Subject = 75% +), 5 = Supervision, 6 = Modified [place] (Device), 7 = Complete [place] (Timely, Safely). Assessment Date/Time Source Assessment Type Assessment Skill Assessment Score Assessment Details No data available for this section
--- OUTSIDE RECORDS SUMMARY | 2025-01-27 11:54 | XMS_ITS | Continuity of Care Document ---
Author Organization [facility] Address [address] [place] [address], [address] [place] [address]- Care Team Providers Care Environmental Auditor Name Role Phone Cade Pollard Primary Care Physician Encounter [facility] Date(s): 12/23/24 - 01/22/25 [facility] [employer] [address], [address] [place] [address]- Encounter Type: Triage Allergies, Adverse Reactions, Alerts [...] Reference Physician Member Role: PCP Address: [address] [place] [address]- Telecom: Care Team Related Persons Name: KAVIN LAUREN Insurance Providers Guarantor name: ANDREW Health Plan Information #: 1 Payer: PRIME Member Number: NA Policy Number: NA Group Number: NA
--- OUTSIDE RECORDS SUMMARY | 2025-01-27 11:54 | XMS_ITS | Continuity of Care Document ---
Author Organization [facility] Address [address] [place] [address], [address] [place] [address]- Care Team Providers Care Roofing Sales Representative Name Role Phone Cade Pollard Primary Care Physician Encounter [facility] Date(s): 12/23/24 - 01/22/25 [facility] [email or web address] [address], [address] [place] [address]- Encounter Type: Triage Allergies, Adverse Reactions, Alerts [...] Reference Physician Member Role: PCP Address: [address] [place] [address]- Telecom: Care Team Related Persons Name: KAVIN LAUREN Insurance Providers Guarantor name: ANDREW Health Plan Information #: 1 Payer: PRIME Member Number: NA Policy Number: NA Group Number: NA
--- OUTSIDE RECORDS SUMMARY | 2025-01-27 11:55 | XMS_ITS | Continuity of Care Document ---
Author Organization [facility] Address [address] [place] [address] Phone Care Team Providers Care Hog Man Name Role Phone Lab Xray, Lab Xray Unavailable Unavailable Procedures Procedure Date Void Ticket Advance Directives Directive Yes / No Effective Date File Name No Information Encounters Encounter Description Practice Location Reason(s) For Visit Diagnoses Date Provider Providers Copied on Encounter [facility], [address], [place], [place], [id number], [place] tel:[phone] No Information 1200 9 Lab Xray Lab Xray. . Family History Family Member Type Diagnosis Age At Onset No Information Payers Payer name Insurance type Covered libertarian ID Authoriza tion(s) No Information Social History [...]
== END 2025-01-27 11:14 | disposition home or self-care (01) ==
PROVIDERS: PCP Physician Assistant; Visit Provider Physician Assistant
DX: F90.0 Attention-deficit hyperactivity disorder, predominantly inattentive type (principal); K59.09 Other constipation

== ENCOUNTER → 2025-01-27 10:10 | Outpatient (BNVA) | payer OTHER, SELFPAY | PROVIDERS: PCP Physician Assistant; Visit Provider Physician Assistant | DX: F90.0 Attention-deficit hyperactivity disorder, predominantly inattentive type (principal); K59.09 Other constipation | CPT/HCPCS: 99212 ==

== ENCOUNTER 2025-02-16 09:10 | Outpatient (AMB) | payer OTHER, SELFPAY ==
--- NOTE | 2025-02-16 09:15 | MHC.OFFVIS ---
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 Complete Hysterectomy 2023. Insulation Worker Apprentice: Insulation Worker Apprentice Present (Diana) Accompanied by: Self / Same As Patient Allergies hydrocodone Adverse Reaction (Intermediate, Verified 02/16/25 09:20) Upset stomach Is last menstrual period known: No Post menopausal: No Patient : No HPI Comments Details: Presenting for annual exam. No complaints. 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) Sexual orientation: Straight/Heterosexual Gender identity: Female Cognitive needs: No Hearing needs: No Vision needs: Yes (glasses) Female Reproductive History Menstrual Age of Menarche: 12 Total pregnancies: 2 Full term: 2 History of abnormal pap smear: Yes (2008 with 1st ) Review of Systems Const All systems reviewed & are unremarkable except as noted in HPI and below Card Reports as per HPI and Reports no additional complaints Resp Reports as per HPI and Reports no additional complaints GI Reports as per HPI and Reports no additional complaints Reports as per HPI Physical Exam Const General: cooperative, healthy appearing and comfortable General: Yes bladder normal to palpation External Female Exam: No lesion Speculum Exam - Vagina: normal appearance of the vagina, normal vaginal discharge and not erythematous Speculum Exam - Cervix: Cervix absent Bimanual exam- vagina & uterus: bladder normal to palpation and uterus absent Bimanual Exam- Adnexa, other: Other (No masses detected) Assessment & Plan Assessment & Plan (1) Well woman exam: Code(s): Z01.419 - Encounter for gynecological examination (general) (routine) without abnormal findings Category: Medical Plan: Co testing done Counseled the patient about the recommended dietary allowance of 1000 mg of Calcium & 600 IU of vitamin D. The patient was instructed to perform monthly self-breast exams and to schedule an annual exam in a year; All questions answered and the patient verbalized understanding. Instructed the patient to schedule annual exam in a year Coding Level of Care Code Est Pt Prev Care 18-39y(09158) Diagnoses Well woman exam Z01.419
[2025-02-16 09:22] VITALS: BP 114/76; BMI 35.8
--- OUTSIDE RECORDS SUMMARY | 2025-02-16 10:08 | XMS_ITS | Clinical Summary ---
Author Organization [address] [facility] Address [address] [place] [address] Phone Care Team Providers Care Marketing Budget Analyst Name Role Phone Cade Robledo Primary Care Provider Encounters Date Type Department Care Team Description 02/16/2025 Telephone Gastroenterology - 299 [facility] 299 [facility] [address] [place] [address] Mendez Barton MD from Last 3 Months Social History Tobacco Use Types Packs/Day Years Used Date Smoking Tobacco: Never Assessed Comments Unknown Sex and Gender Information Value Date Recorded Sex Assigned at Not on file Legal Sex Female 10:02 AM EDT Gender Identity Not on file Sexual Orientation Not on file Plan of Treatment Health Maintenance Due Date Last Done Comments DTaP,Tdap,and Td Vaccines (1 - Tdap) 2008 Hepatitis B Vaccines (1 of 3 - 19+ 3-dose series) 2008 Cervical Cancer Screening: P ap Smear 2010 COVID-19 Vaccine (2023-2 5 season) 2024 Influenza Vaccine (#1) 2024 HIB Vaccines Aged Out No longer eligi ble based on patient's age to complete this topic HPV Vaccines Aged Out No longer eligi ble based on patient's age to complete this topic Hepatitis A Vaccines Aged Out No long er eligible based on patient's age to complete this topic IPV Vaccines Aged Out No longer eligi ble based on patient's age to complete this topic MMR Vaccines Aged Out No longer eligi ble based on patient's age to complete this topic Meningococcal ACWY Vaccine Aged Out N o longer eligible based on patient's age to complete this topic Meningococcal B Vacine Aged Out No lo nger eligible based on patient's age to complete this topic Pneumococcal Vaccine: Pediat rics (0 to 5 Years) and At-Risk Patients (6 to 64 Years) Aged Out No longer eligible b ased on patient's age to complete this topic RSV Immunization Patients Un merced 20 months Aged Out No longer eligible b ased on patient's age to complete this topic Varicella Vaccines Aged Out No longer eligible based on patient's age to complete this topic Insurance [facility] Member Subscriber Plan / Payer (Ef fective 2025-Present) Name:Elisa Berry Relation to Subscriber:Self Name:Elisa Berry Payer ID:[id number] Group ID:Not on file Type:Not on file Address: [place] [id number] [place] [id number] Care Teams Marketing Budget Analyst Relationship Specialty Start Date End Date Cade Robledo PA [address] [place] [address] PCP - General Physician Weed Science Research Technician 02/16/25
--- OUTSIDE RECORDS SUMMARY | 2025-02-16 10:08 | XMS_ITS | Continuity of Care Document ---
Author Name [facility] Organization [facility] Care Team Providers Care Power Digger Operator Name Role Phone [facility] Unavailable Unavailable Problems Combined list of problems from [facility] and [facility] facilities. It does not include entries that were removed or entered in error. Problem Status Onset Date Problem Type Date of Resolution Comments Source Unspecified abdominal pain Active 02/11/[address] [place] [address] Anxiety disorder, unspecified Active 02/11/[address] [place] [address] Attention-deficit hyperactivity disorder, other type Active 02/11/[address] [place] [address] Pelvic and perineal pain Active 02/11/[address] [place] [address] Depression, unspecified Active 02/11/[address] [place] [address] Encounter for other specified special examinations Active 02/11/[address] [place] [address] Unspecified abdominal pain Active Condition [address] [place] [address] Anxiety disorder, unspecified Active Condition [address] [place] [address] Attention-deficit hyperactivity disorder, other type Active Condition [address] [place] [address] Depression, unspecified Active Condition [address] [place] [address] Pelvic and perineal pain Active Condition [address] [place] [address] Medications Combined list of outpatient medications from [facility] and [facility] facilities.Medications provided include 1) outpatient medications from the last 15 months, and 2) patient-reported medications. Medication Details Route Status Patient Instructions Prescription Expires Prescription Number Last Dispense Date Ordering Provider Order Date Order Qty Source Benefiber Advanced 4 g, Oral, Daily, 0 total refill(s ), Maintena nce Oral (given by mouth) Ordered 2024 [facility] buPROPion Oral, 0 total refill(s ), Maintena nce Oral (given by mouth) Ordered 2024 [facility] busPIRone Oral, BID, 0 total refill(s ), Maintena nce Oral (given by mouth) Ordered 2024 [facility] cloNIDine 0 total refill(s ), Maintena nce Ordered 20240[facility] Concerta Oral, every morning, 0 total refill(s ), Maintena nce Oral (given by mouth) Ordered 20240-[facility] Dulcolax Laxative 5 mg, Oral, Daily, 0 total refill(s ), Maintena nce Oral (given by mouth) Ordered 20240[facility] MiraLax 17 g, Oral, Daily, 0 total refill(s ), Maintena nce Oral (given by mouth) Ordered 2024-N [facility] nitrofurant oin macrocrysta ls-monohydr ate 100 mg oral capsule 0 total refill(s ) Discont inued 02/11/20252024 No Facilit y Access rizatriptan 5 mg oral tablet, disintegrat ing rizatrip huffman 5 mg oral tablet, disinteg rating Start Date: 08/11/17 Stop Date: 02/11/25 Status: Disconti nued Repeat number: 1 Discont inued 02/11/20252024 No Facilit y Access Zofran 0 total refill(s ), Maintena nce Ordered 20240N [facility] Allergies, Adverse Reactions, Alerts Combined list of allergies from Department of Defense and Veterans Affairs facilities. It does not include entries that were removed or entered in error. Substance Category Reaction Severity Reaction type Status Date Reported Comments Source acetaminop hen-hydroc odone Propensity to adverse reactions to substance Nausea Active 6 Nausea, upset stomach, constipation Unknown Organizat ion Immunizations Combined list of available immunizations from the Department of Defense and Veterans Affairs facilities. Immunization Series Date Given Administered By Site Reaction Lot Number CVX Code Drug Healthcare Customer Service Status Comments Source tetanus, diphtheria, acellular pertu is 2010 zzLef t Arm [id number] [employer] [facility] complet ed tetanus, diphtheri a, acellular pertussis 10/08/11 Given Ambulat ory Pharmac y influenza virus vaccine, whole virus 2010 zzRig Arm [id number] 16 [facility] ed influenza virus vaccine, whole virus 10/08/11 Given Ambulat ory Pharmac y Encounters Combined list of: 1) Encounters from Department of Veterans Affairs facilities going backup to the last 18 months, not all [place] inpatient encounters are included; 2) Encounters from the Department of [facility] facilities going backup to 280 months. Location Location Details Encounter Type Encounter Number Reason For Visit Attending Provider ADM Date DC Date Status Disposition Source [facility] [place] Outside Documentat ion Only [id number] 01/06 Discharge Disposition: Home or Self Care [facility] [place] [facility] [id number] Depress ion, unspeci fied,Un specifi ed abdomin al pain,En counter for other specifi ed special examina tions,A nxiety disorde r, unspeci fied,At tention -defici t hyperac tivity disorde r, other type,Pe lvic and perinea l pain [facility] 02/11 Discharge Disposition: Home or Self Care [facility] [id number] NURIA OLEA 02/21 [facility] [id number] CORDELL NOVA 02/23 [facility] Procedures Combined list of: 1) Procedures from Department of Veterans Affairs facilities going back up to thelast 18 months, not all [place] non-surgical procedures are included; 2) All procedures from the Department [facility] facilities. Procedure Procedure Type Code Date Perfomer Comments Sourc e No data available for this section Ambulatory P harmacy Social History Combined list of available smoking, tobacco, and other social history from Department of Defense and Veterans Affairs facilities. Social History Type Response Date Comment Sourc e Sex Representation Female 08/11/2017 Unknow n Organization Sexual Orientation Ambula tory Pharmacy Gender identity Ambulator y Pharmacy Assessment and Plan Combined list of future care activities from Department of Defense and Veterans Affairs facilities (e.g., assessment and plan notes, appointments, orders, and referrals). Additional future care activities may be listed in the Plan of Care section. Result Assessment and Plan Date Source Assessment and Plan Extracted from:Title : OSS Author: NYA BOGGS MD Date: 02/11/25 1.?Encounter for other specified special examinations 34-year-old female presents for an overseas screening.? Patient will need?inquiries?done for multiple medical conditions as below.??Reviewed health maintenance and it appears she is due for Tdap. ?She no longer needs Pap smears because she has had a hysterectomy with removal of the cervix.? Will complete overseas screening paperwork and request inquiries for medical conditions as below. 2.?Depression, unspecified Patient with history of chronic depression with increasing depressive episodes in the last year but no SI or HI. ?She is seeing a psychologist and working on getting in with a psychiatrist. She is on multiple psychotropic medications as listed below. Will submit inquiry. 3.?Anxiety disorder, unspecified See #2. 4.?Attention-deficit hyperactivity disorder, other type Recently diagnosed, on Concerta and clonidine. Pending establishment of care with new psychiatrist. Will complete OSS requesting inquiry for psychiatry/psychology services. 5.?Pelvic and perineal pain No longer having pelvic pain after hysterectomy but continues with pelvic floor physical therapy.? Will request inquiry. 6.?Unspecified abdominal pain Patient with chronic gastrointestinal symptoms as described in the HPI?currently pending?GI consult. Will need inquiry. ? Nya Boggs MD ? LT, MC, USN ? Family Medicine Physician ? [place], [place] ? Future Appointments Appointment Date: 02/22/2025 07:40:00 AM Scheduled Provider: NURIA ALVES PA Location: [address] [place], [place] [address] Appointment Type: PC VIRT Appointment Date: 02/23/2025 01:00:00 PM Scheduled Provider: CORDELL VILLAGRAN NP Location: [id number] Appointment Type: BH FTR 02/16/[address] [place] [address] Functional Status Combined list of recent functional and cognitive assessments recorded at [facility] ([place] Functional [place] Measurement (FIM) Scale: 1 = Total Assistance (Subject = 0% +), 2 = Maximal Assistance (Subject = 25% +), 3 = Moderate Assistance (Subject = 50% +), 4 = Minimal Assistance (Subject = 75% +), 5 = Supervision, 6 = Modified [place] (Device), 7 = Complete [place] (Timely, Safely). Assessment Date/Time Source Assessment Type Assessment Skill Assessment Score Assessment Details No data available for this section
--- OUTSIDE RECORDS SUMMARY | 2025-02-16 10:08 | XMS_ITS | Encounter Summary ---
Author Organization [facility] Address [address] [place] [address] Care Team Providers Care Buckle Assembler Name Role Phone Cade Robledo Primary Care Provider Encounter Details Date Type Department Care Team (Late st Contact Info) Description 02/16/2025 Telephone Gastroenterology - [address] [place] [phone] Mendez Barton MD [address] [place] [address] Social History Tobacco Use Types Packs/Day Years Used Date Smoking Tobacco: Never Assessed Comments Unknown Sex and Gender Information Value Date Recorded Sex Assigned at Not on file Legal Sex Female 10:02 AM EDT Gender Identity Not on file Sexual Orientation Not on file documented as of this encounter Plan of Treatment Not on file documented as of this encounter Visit Diagnoses Not on filedocumented in this encounter Care Teams Buckle Assembler Relationship Specialty Start Date End Date Cade Robledo PA [address] [place] [phone] PCP - General Physician Research Fellow 02/16/25 documented as of this encounter
--- OUTSIDE RECORDS SUMMARY | 2025-02-16 10:08 | XMS_ITS | Continuity of Care Document ---
Author Organization [facility] Address [address] [place] [address] Phone Care Team Providers Care Fibre Technologist Name Role Phone Lab Xray, Lab Xray Unavailable Unavailable Procedures Procedure Date Void Ticket Advance Directives Directive Yes / No Effective Date File Name No Information Encounters Encounter Description Practice Location Reason(s) For Visit Diagnoses Date Provider Providers Copied on Encounter [facility], [address], [place], [place], [id number], [place] tel:[phone] [facility] No Information 1200 9 Lab Xray Lab Xray. . Family History Family Member Type Diagnosis Age At Onset No Information Payers Payer name Insurance type Covered democrat ID Authoriza tion(s) No Information Social History [...]
== END 2025-02-16 09:34 | disposition home or self-care (01) ==
LOC: HO.HWS 09:10
PROVIDERS: PCP Physician Assistant; Visit Provider Obstetrics & Gynecology
DX: Z01.419 Encounter for gynecological examination (general) (routine) without abnormal findings (principal)
CPT/HCPCS: 99395; 99459

== ENCOUNTER 2025-02-16 09:10 | Outpatient (REF) | payer OTHER, SELFPAY ==
[2025-02-19 14:56] LABS: HPV Genotype 16 Negative (Negative); HPV Genotype 18 Negative (Negative); HPV High Risk Negative (Negative)
== END 2025-02-16 09:11 | disposition home or self-care (01) ==
LOC: HO.LNP 09:10
PROVIDERS: PCP Physician Assistant; Visit Provider Obstetrics & Gynecology
DX: Z01.419 Encounter for gynecological examination (general) (routine) without abnormal findings (principal)
CPT/HCPCS: 87626; 88175; 99459

== ENCOUNTER 2025-03-30 08:09 | Outpatient (REF) | payer OTHER, SELFPAY ==
--- OUTSIDE RECORDS SUMMARY | 2025-03-30 08:15 | XMS_ITS | Continuity of Care Document ---
Author Name [facility] Organization [facility] Care Team Providers Care Social Services Director Name Role Phone [facility] Unavailable Unavailable Problems Combined list of problems from Department of Defense and Veterans Affairs facilities. It does not include entries that were removed or entered in error. Problem Status Onset Date Problem Type Date of Resolution Comments Source Generalized anxiety disorder Active [address] [place] [address] Depression, unspecified Active [address] [place] [address] Encounter for administrative examinations, unspecified Active [address] [place] [address] Unspecified abdominal pain Active [address] [place] [address] Anxiety disorder, unspecified Active [address] [place] [address] Attention-deficit hyperactivity disorder, other type Active [address] [place] [address] Pelvic and perineal pain Active [address] [place] [address] Depression, unspecified Active [address] [place] [address] Encounter for other specified special examinations Active [address] [place] [address] Unspecified abdominal pain Active Condition [address] [place] [address] Anxiety disorder, unspecified Active Condition [address] [place] [address] Attention-deficit hyperactivity disorder, other type Active Condition [address] [place] [address] Depression, unspecified Active Condition [address] [place] [address] Generalized anxiety disorder Active Condition [address] [place] [address] Pelvic and perineal pain Active Condition [address] [place] [address] Left lower quadrant pain Active Condition [facility] INDIC FOR CARE/INTERVEN REL TO LABOR/DELIV ANTEPARTUM COMPL Inactive Condition DoD POST-TERM - ANTEPARTUM COND OR PRIOR COMPL DELIVER Inactive Condition [facility] INCOORDINATE UTERINE CONTRACTIONS Inactive Condition [facility] visit for: administrative purpose Inactive Condition [facility] Supervision Of Normal Inactive Condition DoD INTOLERANCE OF GLUCOSE-GALACTOSE Active Condition DoD Need For Prophylactic Immunotherapy RhoGAM Inactive Condition DoD PREG COMPLICATIONS: ANTEPARTUM COND OR PRIOR COMP DELIVERY Inactive Condition [facility] heartburn Active Condition [facility] SCIATICA Active Condition [facility] Education Initial Visit Active Condition [facility] Patient Counseling: Active Condition Do D EXAM WITH POSITIVE RESULT Inactive Condition DoD nausea with vomiting Inactive Condition [facility] Medications Combined list of outpatient medications from [...] Maintena nce Oral (given by mouth) Ordered [facility] buPROPion Oral, 0 total refill(s ), Maintena nce Oral (given by mouth) [facility] BU[facility]ION XL (bupropion HCl), 300 MG, TAB ER 24H, ORAL, LUPIN PHARMACEU, 500 ea. BOTTLE Active [id number] 2023 30 Pharmac y Data Transac tion Service Facilit y BUPROPION XL (bupropion HCl), 300 MG, TAB ER 24H, ORAL, LUPIN PHARMACEU, 500 ea. BOTTLE Active [id number] 2023 30 Pharmac y Data Transac tion Service Facilit y BUPROPION XL (bupropion HCl), 300 MG, TAB ER 24H, ORAL, LUPIN PHARMACEU, 500 ea. BOTTLE Active [id number] 2023 30 Pharmac y Data Transac tion Service Facilit y BUPROPION XL (bupropion HCl), 300 MG, TAB ER 24H, ORAL, LUPIN PHARMACEU, 500 ea. BOTTLE Cancele d [id number] : 2023 0 Pharmac y Data Transac tion Service Facilit y busPIRone Oral, BID, 0 total refill(s ), Maintena nce Oral (given by mouth) [facility] BUS[facility]IRONE HCL (BUSPIRONE HCL), 15MG, TABLET, ORAL, TEVA [place], 100 ea. BOTTLE Active [id number] 4 2023 90 Pharmac y Data Transac tion Service Facilit y cloNIDine 0 total refill(s ), Maintena nce Ordered [facility] Concerta Oral, every morning, 0 total refill(s ), Maintena nce Oral (given by mouth) Ordered 20240[facility] Dulcolax Laxative 5 mg, Oral, Daily, 0 total refill(s ), Maintena nce Oral (given by mouth) Ordered [facility] MiraLax 17 g, Oral, Daily, 0 total refill(s ), Maintena nce Oral (given by mouth) Ordered [facility] nitrofurant oin macrocrysta ls-monohydr ate 100 mg oral capsule 0 total refill(s ) Discont inued 02/11/20252024 No Facilit y Access ONDANSETRON ODT (ondansetro n), 8 MG, TAB RAPDIS, ORAL, RISING PHARM, 30 ea. BOTTLE Cancele d [id number] : 2023 0 Pharmac y Data Transac tion Service Facilit y rizatriptan 5 mg oral tablet, disintegrat ing rizatrip huffman 5 mg oral tablet, disinteg rating Start Date: 08/11/17 Stop Date: 02/11/25 Status: Disconti nued Repeat number: 1 Discont inued 02/11/20252024 No Facilit y Access SSD (SILVER SULFADIAZIN E), 1 %, CREAM (G), TOPICAL, 'S LAB, 50 g JAR Cancele d [id number] : 2023 0 Pharmac y Data Transac tion Service Facilit y Zofran 0 total refill(s ), Maintena nce Ordered [facility] Allergies, Adverse Reactions, Alerts Combined list [...] Drug allergy (disorder) Nausea active 6 Vol[facility]ymyr [facility] Immunizations Combined list of available immunizations from the Department of Defense and Veterans Affairs facilities. Immunization Series Date Given Administered By Site Reaction Lot Number CVX Code Drug Project Control Manager Status Comments Source COVID-19, mRNA, LNP-S, PF, 30 mcg/0.3 mL dose 2020 TERRI, () Not Given COVID-19, mRNA, LNP-S, PF, 30 mcg/0.3 mL dose DoD COVID-19, mRNA, LNP-S, PF, 30 mcg/0.3 mL dose 2020 ИРИНА [employer] (PFR) Not Given COVID-19, mRNA, LNP-S, PF, 30 mcg/0.3 mL dose DoD tetanus, diphtheria, acellular pertu is 2010 zzLef t Arm [id number] 115 GlaxoSmithK[employer] ne complet ed tetanus, diphtheri a, acellular pertussis 10/08/11 Given Ambulat ory Pharmac y influenza virus vaccine, whole virus 2010 zzRig ht Arm [id number] 16 sanofi pasteur complet ed influenza virus vaccine, whole virus 10/08/11 Given Ambulat ory Pharmac y influenza virus vaccine, whole virus 0 2010 [id number] 16 Sanofi Pasteur (PMC) complet ed influenza virus vaccine, whole virus DoD tetanus toxoid, reduced diphtheria toxoid, and acellular pertu is vaccine, adsorbed 0 2010 [id number] 115 Subject Company (SKB) complet ed tetanus toxoid, reduced diphtheri [...] ADM Date DC Date Status Disposition Source [facility]([place] [employer] OUTPATIENT [id number] dating u/s to confirm dates. prenata l reg sched on PATRICK ROSA W 04/20 Released w/o Limitations [facility]([place] [employer] [place]) [facility]([place] [facility] [place]) OUTPATIENT [id number] prenata l reg. pt has dating u/s lmp [id number] CARL BAL 05/10 Released w/o Limitations [facility](S D Dye [facility] Operati ons Center) [facility] Dye Weigher Waste Machine Tender) OUTPATIENT [id number] NOB late to care 19+ u/s 05/17/11 TEOFILO ROSS 05/22 Released w/o Limitations [facility]([place] D[employer] Waste Machine Tender ) [facility] Dye Weigher Waste Machine Tender) OUTPATIENT [id number] micheal 31+ wks r/s from today n/s with REJI Guerra 07/27 Released w/o Limitations [facility]([place] [employer] Waste Machine Tender ) [facility] Dye Weigher Waste Machine Tender) OUTPATIENT [id number] TEOFILO IGLESIAS 09/10 Released w/o Limitations [facility]([place] [employer] Waste Machine Tender ) [facility] Dye Weigher Waste Machine Tender) OUTPATIENT [id number] micheal 39wks TEOFILO ROSS 09/19 Released w/o Limitations [facility]([place] [employer] Waste Machine Tender ) [facility] Dye Weigher Waste Machine Tender) TELE CONSULT [id number] 39+wks vag pain getting worst LABLAMONTE VILLANUEVA 09/24 Referred for Appointment [facility]([place] [employer] Waste Machine Tender ) [facility] Dye Weigher Waste Machine Tender) OUTPATIENT [id number] TEOFILO Chavarria 09/24 Released w/o Limitations [facility]([place] [employer] Machine Tender ) [facility] Dye Weigher Waste Machine Tender) OUTPATIENT [id number] micheal 40wks TEOFILO ROSS 09/28 Released w/o Limitations [facility]([place] [employer] Waste Machine Tender ) [facility]([place] L&D Triage) OUTPATIENT [id number] @ 40+1wks r/o labor JAMES GLEZ 09/30 Released w/o Limitations [facility](S D Dye Weigher L&D Triage) [facility]([place] L&D Triage) OUTPATIENT [id number] @ 40+2 wks r/o labor, sent home from [facility]age at [facility] RICCI Man 09/30 Released w/o Limitations [facility](S D Dye Weigher L&D Triage) [facility] Dye Weigher Waste Machine Tender) OUTPATIENT [id number] micheal 41 + wks TEOFILO ROSS 10/03 Released w/o Limitations [facility]([place] [employer] Waste Machine Tender ) [facility]([place] FAU) OUTPATIENT [id number] post due dates MARGARET BUCK 10/04 Released w/o Limitations [facility](S D Dye Weigher FAU) [facility] DIRECT TO MTF FROM OTHER THAN ER OR APU [id number] CHRISTINAALICE HOLLAND 10/07 DISCHARGED HOME [facility]([place] [facility] L&D Triage) OUTPATIENT [id number] @ 41+2 weeks r\o Labor SAGE WHALEY 10/07 Released w/o Limitations [facility](S D Dye Weigher L&D Triage) [facility] 4) OUTPATIENT [id number] has the Esure permena nt bc has had pain since ELIDIA MYRNA Li 07/18 [facility]ased w/o Limitations [facility] 4) [facility] Obstetric s/Gynecol ogy) OUTPATIENT [id number] FEMALE PELVIC PAIN SEBASTIEN MARIA DEL CARMEN M 08/12 [facility]ased w/o Limitations [facility](Francisco Javier remerto n Obstetr ics/Check Clerk ecology ) [facility] Phy Therapy) OUTPATIENT [id number] FEMALE PELVIC PAIN ISAIAS, PHILL M 08/30 Released w/o Limitations [facility](B remerto n Phy Therapy ) [facility] [facility]y [facility]) OUTPATIENT [id number] ISAIAS, PHILL M 09/16 Released w/o Limitations [facility](B remerto n Phy Therapy ) [facility]([place] [facility]) OUTPATIENT [id number] NEISHA MOLINA 09/16 Released w/o Limitations [facility](B remerto n Phy Therapy ) [facility]([place] [facility]) OUTPATIENT [id number] ISAIAS, PHILL M 09/20 Released w/o Limitations [facility](B remerto n Phy Therapy ) [facility]([place] [facility]) OUTPATIENT [id number] f/u pelvic floor ISAIAS, PHILL M 09/30 Released w/o Limitations [facility](B remerto n Phy Therapy ) [facility]([place] [facility]) OUTPATIENT [id number] JAX PATTON 09/30 Released w/o Limitations [facility](B remerto n Phy Therapy ) [facility] [facility]) OUTPATIENT [id number] CHELA ANGULO 10/14 Released w/o Limitations [facility](B remerto n Phy Therapy ) [facility]([place] [facility]) OUTPATIENT [id number] ISAIAS, PHILL M 10/14 Released w/o Limitations [facility](B remerto n Phy Therapy ) [facility]([place] [facility]) OUTPATIENT [id number] ISAIAS, PHILL M 10/21 Released w/o Limitations [facility](B remerto n Phy Therapy ) [facility]([place] [facility]) OUTPATIENT [id number] VITO JOSEPH 10/27 Released w/o Limitations [facility](B remerto n Phy Therapy ) [facility] Phy Therapy) OUTPATIENT [id number] PHILL ESPARZA 11/08 Released w/o Limitations [facility](B remerto n Phy Therapy ) [facility]erton Phy Therapy) OUTPATIENT [id number] PHILL ESPARZA 11/22 Released w/o Limitations [facility](B remerto n Phy Therapy ) [facility] 4) TELE CONSULT [id number] Notes Entered by: FUNMI NICHOLAS 31 Jan 2016 1322 ------- ------- ------- ------- -- RH Message RE: Maria D castellanos/Thyr FUNMI Saldivar 01/30 Referred for Appointment [facility](B remerto n Family Medicin e 4) [facility] 4) OUTPATIENT [id number] maria d es x1w MYRNA BRENNER Susy 02/19 Released w/o Limitations [facility](B remerto n Family Medicin e 4) [facility] 4) TELE CONSULT [id number] Notes Entered by: FUNMI NICHOLAS 23 Feb 2016 0848 ------- ------- ------- ------- -- RH Message RE: Request vamshi BRENNERMYRNA Susy 02/22 [facility] n Family Medicin e 4) [facility] 4) OUTPATIENT [id number] ingrown hair in pelvic area/pa kevin MYRNA BRENNER Susy 03/05 Released w/o Limitations [facility](B remerto n Family Medicin e 4) [facility] Obstetric s/Gynecol ogy) OUTPATIENT [id number] Pelvic and perinea l pain MARIA DEL CARMEN CROWE 03/22 Released w/o Limitations [facility](B remerto n [facility] ics/Check Clerk ecology ) [facility]([place] [address]) TELE CONSULT [id number] Notes Entered by: PRINCESS LOAIZA CH 28 Mar 2016 1027 ------- ------- ------- ------- -- Relay [facility] MYRNA Carpenter 03/28 [facility](B remerto n Family Medicin e 3) [facility]) TELE CONSULT [id number] Notes Entered by: Radha GRANADOS 27 Apr 2016 1347 ------- ------- ------- ------- -- SANGITA WATSON [phone] Limited Pelvic Ultraso und 04/20/16 WIN GRANADOS 04/27 [facility]B remerto n [facility]) [facility] Obstetric s/Gynecol ogy) TELE CONSULT [id number] Notes Entered by: Chetna KNAPP 01 May 2016 0930 ------- ------- ------- ------- -- Message to Provide MARIA DEL CARMEN Rodriguez 05/01 [facility](B remerto n [facility] ics/Check Clerk ecology ) [facility]([place] [address]) OUTPATIENT [id number] F/U STOMACH CONCERN S MYRNA BRENNER T 06/12 Released w/o Limitations [facility](B remerto n Family Medicin e 3) [facility]([place] [address]) TELE CONSULT [id number] MYRNA BRENNER 06/16 [facility](B remerto n Family Medicin e 3) [facility]([place] [address]) TELE CONSULT [id number] Notes Entered by: Dontrell CARY 27 Aug 2016 1044 ------- ------- ------- ------- -- [id number] NAL; PCM: Elidia ROBERTS OBDULIO K 08/27 Referred for Appointment [facility](B remerto n Family Medicin e 3) [facility] 3) OUTPATIENT [id number] f/u pelvic pn MYRNA BRENNER T 12/05 Released w/o Limitations [facility](B remerto n Family Medicin e 3) [facility] 3) OUTPATIENT [id number] Worseni ng cold x1w MYRNA BRENNER T 12/17 Released w/o Limitations [facility](B remerto n Family Medicin e 3) [facility] 3) OUTPATIENT [id number] looney cx x5d JÚNIOR MCGRATH 02/08 Released w/o Limitations [facility](B remerto n Family Medicin e 3) [facility] Obstetric s/Gynecol ogy) OUTPATIENT [id number] Left lower quadran t pain chronic SEBASTIEN MARIA DEL CARMEN M 03/22 Released w/o Limitations [facility](B remerto n Obstetr ics/Check Clerk ecology ) [facility] Obstetric s/Gynecol ogy) TELE CONSULT [id number] Notes Entered by: Chetna KNAPP 04 Apr 2017 1614 ------- ------- ------- ------- -- TATI Garnica 04/04 Referred for Appointment [facility](B remerto n Obstetr ics/Check Clerk ecology ) [facility] Obstetric s/Gynecol ogy) OUTPATIENT [id number] WILL JESSICA BYRD 04/11 Released w/o Limitations [facility](B remerto n Obstetr ics/Check Clerk ecology ) [facility]) TELE CONSULT [id number] Notes Entered by: Luiz LOVE 16 Apr 2017 1013 ------- ------- ------- ------- -- Rubenmeghna [facility] [phone] Pelvic Ultraso und 04/13/17 YONY LOVE 04/16 [facility]B remerto n [facility]) [facility] 3) OUTPATIENT [id number] INF BUG BITE ON ABDOM X2D MYRNA BRENNER 04/17 Released w/o Limitations [facility](B remerto n Family Medicin e 3) [facility] Outside Documentat ion Only [id number] 01/06 Discharge Disposition: Home or Self Care [facility] [place] 0100-[facility] [id number] Depress ion, unspeci fied,Un specifi ed abdomin al pain,En counter for other specifi ed special examina tions,A nxiety disorde r, unspeci fied,At tention -defici t hyperac tivity disorde r, other type,Pe lvic and perinea l pain [facility] 02/11 Discharge Disposition: Home or Self Care [facility] [address] [place] [address] Outside Documentat ion Only [id number] 02/18 Discharge Disposition: Home or Self Care [facility] [address] [place] [address] [phone] [facility] er for adminis trative examina tions, unspeci fied NURIA OLEA 02/21 Discharge Disposition: Home or Self Care [facility] [address] [phone] General ized anxiety disorde r,Depre ssion, unspeci fied ERIN ANGEL 02/22 Discharge Disposition: Home or Self Care [facility] Procedures Combined list of: 1) Procedures from Department of Veterans Affairs facilities going back up to [facility] 18 months, not all MD non-surgical procedures are included; 2) All procedures from the Department of Defense facilities. Procedure Procedure Type Code Date Perfomer Comments Sourmatheus e No data available for this section Ambulatory Pharmacy THERAPEUTIC, PROPHYLACTIC, OR DIAGNOSTIC INJECTION (SPECIFY SUBSTANCE OR DRUG); SUBCUTANEOUS OR INTRAMUSCULAR 10/30 [facility] REPAIR OF OTHER CURRENT OBSTETRIC LACERATION 10/09 [facility] INJECTION OF RH IMMUNE GLOBULIN 10/09 [facility] ADMINISTRATION OF [id number] TUSSIS, COMBINED 10/09 [facility] POSTOPERATIVE FOLLOW-UP VISIT, NORMALLY INCLUDED IN THE SURGICAL PACKAGE, INDICATE THAT EVALUATION & MANAGEMENT SERVICE WAS PERFORMED DURING A POSTOPERATIVE PERIOD REASON RELATED ORIGINAL PROCEDURE 10/08 [facility] VAGINAL DELIVERY ONLY (WITH OR WITHOUT EPISIOTOMY AND/OR FORCEPS); 10/07 [facility] ULTRASOUND, UTERUS, REAL TIME WITH IMAGE DOCUMENTATION, LIMITED (EG, HEART BEAT, PLACENTAL LOCATION, POSITION AND/OR QUALITATIVE AMNIOTIC FLUID VOLUME), 1 OR MORE FETUSES 10/04 [facility] SUBSEQ CARE VISIT () [EXCLS:PATIENTS WHO ARE SEEN FOR A CONDITION UNREL TO / CARE (EG,AN UP RESPIR INFECT;PATIENTS SEEN FOR CONSULTATION ONLY,NOT FOR CONT CARE)] 10/03 [facility] SUBSEQ CARE VISIT () [EXCLS:PATIENTS WHO ARE SEEN FOR A CONDITION UNREL TO / CARE (EG,AN UP RESPIR INFECT;PATIENTS SEEN FOR CONSULTATION ONLY,NOT FOR CONT CARE)] 09/30 [facility] SUBSEQ CARE VISIT () [EXCLS:PATIENTS WHO ARE SEEN FOR A CONDITION UNREL TO / CARE (EG,AN UP RESPIR INFECT;PATIENTS SEEN FOR CONSULTATION ONLY,NOT FOR CONT CARE)] 09/29 [facility] SUBSEQ CARE VISIT () [EXCLS:PATIENTS WHO ARE SEEN FOR A CONDITION UNREL TO / CARE (EG,AN UP RESPIR INFECT;PATIENTS SEEN FOR CONSULTATION ONLY,NOT FOR CONT CARE)] 09/28 [facility] SUBSEQ CARE VISIT () [EXCLS:PATIENTS WHO ARE SEEN FOR A CONDITION UNREL TO / CARE (EG,AN UP RESPIR INFECT;PATIENTS SEEN FOR CONSULTATION ONLY,NOT FOR CONT CARE)] 09/24 [facility] SUBSEQ CARE VISIT () [EXCLS:PATIENTS WHO ARE SEEN FOR A CONDITION UNREL TO / CARE (EG,AN UP RESPIR INFECT;PATIENTS SEEN FOR CONSULTATION ONLY,NOT FOR CONT CARE)] 09/19 [facility] SUBSEQ CARE VISIT () [EXCLS:PATIENTS WHO ARE SEEN FOR A CONDITION UNREL TO / CARE (EG,AN UP RESPIR INFECT;PATIENTS SEEN FOR CONSULTATION ONLY,NOT FOR CONT CARE)] 09/10 [facility] SUBSEQ CARE VISIT () [EXCLS:PATIENTS WHO ARE SEEN FOR A CONDITION UNREL TO / CARE (EG,AN UP RESPIR INFECT;PATIENTS SEEN FOR CONSULTATION ONLY,NOT FOR CONT CARE)] 07/27 [facility] ULTRASOUND, UTERUS, REAL TIME WITH IMAGE DOCUMENTATION, LIMITED (EG, HEART BEAT, PLACENTAL LOCATION, POSITION AND/OR QUALITATIVE AMNIOTIC FLUID VOLUME), 1 OR MORE FETUSES 04/20 [facility] CATHETERIZATION AND INTRODUCTION OF SALINE OR CONTRAST MATERIAL FOR SALINE INFUSION SONOHYSTEROGRAPHY (SIS) OR HYSTEROSALPINGOGRAPHY 04/11 [facility] SCREENING PAPANICOLAOU SMEAR; OBTAINING, PREPARING AND CONVEYANCE OF CERVICAL OR VAGINAL SMEAR TO LABORATORY 03/22 [facility] PHYSICAL THERAPY RE-EVALUATION 11/22 [facility] MANUAL THERAPY TECHNIQUES (EG, MOBILIZATION/ MANIPULATION, MANUAL LYMPHATIC DRAINAGE, MANUAL TRACTION), 1 OR MORE REGIONS, EACH 15 MINUTES 11/08 [facility] MANUAL THERAPY TECHNIQUES (EG, MOBILIZATION/ MANIPULATION, MANUAL LYMPHATIC DRAINAGE, MANUAL TRACTION), 1 OR MORE REGIONS, EACH 15 MINUTES 10/27 [facility] MANUAL THERAPY TECHNIQUES (EG, MOBILIZATION/ MANIPULATION, MANUAL LYMPHATIC DRAINAGE, MANUAL TRACTION), 1 OR MORE REGIONS, EACH 15 MINUTES 10/21 [facility] MANUAL THERAPY TECHNIQUES (EG, MOBILIZATION/ MANIPULATION, MANUAL LYMPHATIC DRAINAGE, MANUAL TRACTION), 1 OR MORE REGIONS, EACH 15 MINUTES 10/14 [facility] MANUAL THERAPY TECHNIQUES (EG, MOBILIZATION/ MANIPULATION, MANUAL LYMPHATIC DRAINAGE, MANUAL TRACTION), 1 OR MORE REGIONS, EACH 15 MINUTES 09/30 DoD MANUAL THERAPY TECHNIQUES (EG, MOBILIZATION/ MANIPULATION, MANUAL LYMPHATIC DRAINAGE, MANUAL TRACTION), 1 OR MORE REGIONS, EACH 15 MINUTES 09/20 [facility] THERAPEUTIC PROCEDURE, 1 OR MORE AREAS, EACH 15 MINUTES; THERAPEUTIC EXERCISES TO DEVELOP STRENGTH AND ENDURANCE, RANGE OF MOTION AND FLEXIBILITY 09/16 [facility] MANUAL THERAPY TECHNIQUES (EG, MOBILIZATION/ MANIPULATION, MANUAL LYMPHATIC DRAINAGE, MANUAL TRACTION), 1 OR MORE REGIONS, EACH 15 MINUTES 09/16 [facility] MANUAL THERAPY TECHNIQUES (EG, MOBILIZATION/ MANIPULATION, MANUAL LYMPHATIC DRAINAGE, MANUAL TRACTION), 1 OR MORE REGIONS, EACH 15 MINUTES 08/30 [facility] INJECTION, KETOROLAC TROMETHAMINE, PER 15 MG 07/21 [facility] SERVICE(S) PROVIDED BETWEEN 10:00 PM AND 8:00 AM AT 24-HOUR FACILITY, IN ADDITION TO BASIC SERVICE 05/27 [facility] Hysterosalpingography With Catheter Contrast Injection Hysterosalpingography With Catheter Contrast Injection [id number] 04/15 JESSICA BYRD Test Test 00337 04/15 JESSICA BYRD [facility] Cervical or vaginal cancer screening; pelvic and clinical breast examination 03/24 MARIA DEL CARMEN CROWE Screening papanicolaou smear; obtaining, preparing and conveyance of cervical or vaginal smear to laboratory 03/24 MARIA DEL CARMEN CROWE [facility] Physical Medicine Physical Therapy Re-Evaluation Physical Medicine Physical Therapy Re-Evaluation 91870 11/22 PHILL ESPARZA [facility] Mobilization Soft Ti ue Mobilization Soft Tissue 14232 11/08 ISAIASPHILL GOLDBERG [facility] Physical Medicine Physical Therapy Re-Evaluation Physical Medicine Physical Therapy Re-Evaluation 71196 11/08 PHILL ESPARZA [facility] Physical Therapy Mobilization Joint Physical Therapy Mobilization Joint 61940 10/27 VITO JOSEPH [facility] Physical Therapy: ___ Se ion Segments, 15 Minutes Each Physical Therapy: ___ Session Segments, 15 Minutes Each 05952 10/27 VITO JOSEPH [facility] Mobilization Soft Ti ue Mobilization Soft Tissue 79644 10/21 PHILL ESPARZA [facility] Physical Therapy: ___ Se ion Segments, 15 Minutes Each Physical Therapy: ___ Session Segments, 15 Minutes Each 34040 10/21 PHILL ESPARZA [facility] Physical Medicine Physical Therapy Re-Evaluation Physical Medicine Physical Therapy Re-Evaluation 21292 10/21 [facility] Soft Ti ue Mobilization Soft Tissue 08137 10/14 PHILL ESPARZA [facility] Physical Therapy: ___ Se ion Segments, 15 Minutes Each Physical Therapy: ___ Session Segments, 15 Minutes Each 67659 10/14 PHILL ESPARZA [facility] Physical Medicine Physical Therapy Re-Evaluation Physical Medicine Physical Therapy Re-Evaluation 89371 10/14 PHILL ESPARZA [facility] Physical Therapy Mobilization Joint Physical Therapy Mobilization Joint 70507 10/14 CHELA ANGULO [facility] Physical Therapy Mobilization Joint Physical Therapy Mobilization Joint 71389 09/30 ABDI JAX Phillip [facility] Physical Therapy: ___ Se ion Segments, 15 Minutes Each Physical Therapy: ___ Session Segments, 15 Minutes Each 56461 09/30 JAX PATTON Kenji [facility] Mobilization Soft Ti ue Mobilization Soft Tissue 31002 09/30 PHILL ESPARZA [facility] Physical Medicine Physical Therapy Re-Evaluation Physical Medicine Physical Therapy Re-Evaluation 25428 09/30 DONAVAN ESPARZAANDA Reza [facility] Physical Therapy: ___ Se ion Segments, 15 Minutes Each Physical Therapy: ___ Session Segments, 15 Minutes Each 24561 09/21 NEISHA MOLINA [facility] Mobilization Soft Ti ue Mobilization Soft Tissue 63397 09/20 PHILL ESPARZA Physical Medicine Physical Therapy Re-Evaluation Physical Medicine Physical Therapy Re-Evaluation 55393 09/20 DONAVAN ESPARZAANDA [facility] Mobilization Soft Ti ue Mobilization Soft Tissue 85987 09/16 DONAVAN ESPARZAANDA Reza [facility] Physical Therapy Neuromuscular Re-education Physical Therapy Neuromuscular Re-education 66720 09/16 PHILL ESPARZA [facility] Physical Medicine Physical Therapy Re-Evaluation Physical Medicine Physical Therapy Re-Evaluation 87420 09/16 DONAVAN ESPARZAANDA [facility] Mobilization Soft Ti ue Mobilization Soft Tissue 60249 08/31 PHILL ESPARZA [facility] Physical Therapy Neuromuscular Re-education Physical Therapy Neuromuscular Re-education 98195 08/31 PHILL ESPARZA [facility] Physical Medicine Physical Therapy Evaluation Physical Medicine Physical Therapy Evaluation 06393 08/31 PHILL ESPARZA Non-Stre Test (___ 0,2) Non-Stress Test (___ 0,2) 83063 10/04 MARGARET BUCK Ultrasound Obstetric Limited Evaluation Ultrasound Obstetric Limited Evaluation 96445 10/04 MARGARET BUCK [facility] OB Services Antepartum Care Only Subsequent Single Visit OB Services Antepartum Care Only Subsequent Single Visit 0502F 10/03 TOEFILO ROSS [facility] OB Services Antepartum Care Only Subsequent Single Visit OB Services Antepartum Care Only Subsequent Single Visit 0502F 09/30 RICCI GONZALEZ [facility] Non-Stre Test (___ 0,2) Non-Stress Test (___ 0,2) 61071 09/30 FRANCE WORKMAN [facility] Ultrasound Obstetric Limited Evaluation Ultrasound Obstetric Limited Evaluation 06095 09/30 FRANCE WORKMAN [facility] OB Services Antepartum Care Only Subsequent [...] Subsequent Single Visit 0502F 07/27 REJI SHERWOOD [facility] Ultrasound Obstetric Limited Evaluation Ultrasound Obstetric Limited Evaluation 89683 04/20 PATRICK ROSA [facility] Social History Combined list of available smoking, tobacco, and other social history from Department of Defense and Veterans Affairs facilities. Social History Type Response Date Comment Sour e Sex Representation Female (finding) 08/11/2017 Unknown Organization Sexual Orientation [facility] Gender identity [facility] This section is an empty social history section. DoD Assessment and Plan Combined list of future care activities from Department of Defense and Veterans Affairs facilities (e.g., assessment and plan notes, appointments, orders, and referrals). Additional future care activities may be listed in the Plan of Care section. Result Assessment and Plan Date Source Assessment and Plan Extracted from:Title : Office Clinic Note Author: NURIA ALVES PA Date: 02/21/25 1.?Encounter for administrative examinations, unspecified Overse[place] suitability screening completed, including review of 2807, 1300/1, and/or [facility] enrollment forms, as available and provided.??The following conditions were identified.? ? - Depression/ Anxiety: Can be followed by Behavioral Health - ADHD- On Concerta (Concerta is not always available in [facility] due to shortages)? -?Gastrointestinal problems- Pending evaluation by GI specialist. No MEF GI specialist in [facility] but can be referred out based on diagnosis.? -Perineal pain: Can continue pelvic floor exercises with PT.? ? [facility] MAY?have appropriate resources to care for this patient.? Final recommendation: PENDING GI evaluation please schedule patient for re-evaluation after GI diagnosis. ? 30 minutes devoted to record review as part of an evaluation for overseas screening. Hard copy documents reviewed. DAVETLA/HAI reviewed. ? Extracted from:Title: OSS Author: ROBERT BOGGS MD Date: 02/11/25 1.?Encounter for other [...] HPI?currently pending?GI consult. Will need inquiry. ? Robert Boggs MD ? LT, MC, USN ? Family Medicine Physician ? [place], [place] ? 03/30/2025 [facility] Assessment and Plan Extracted from:Title : Office Clinic Note Author: NURIA ALVES PA Date: 02/21/25 1.?Encounter for administrative examinations, unspecified Overseas suitability screening completed, including review of 2807, 1300/1, and/or [facility] enrollment forms, as available and provided.??The following conditions were identified.? ? - Depression/ Anxiety: Can be followed by Behavioral Health - ADHD- On Concerta (Concerta is not always available in [facility] due to shortages)? -?Gastrointestinal problems- Pending evaluation by GI specialist. No MEF GI specialist in [facility] but can be referred out based on diagnosis.? -Perineal pain: Can continue pelvic floor exercises with PT.? ? [facility] MAY?have appropriate resources to care for this patient.? Final recommendation: PENDING GI evaluation please schedule patient for re-evaluation after GI diagnosis. ? 30 minutes devoted to record review as part of an evaluation for overseas screening. Hard copy documents reviewed. AHTLA/HAIMS reviewed. ? Extracted from:Title: OSS Author: ROBERT BOGGS MD Date: 02/11/25 1.?Encounter for other [...] HPI?currently pending?GI consult. Will need inquiry. ? Robert Boggs MD ? LT, MC, USN ? Family Medicine Physician ? [place], [place] ? 03/30/[address] [place] [address] Functional Status Combined list of recent functional and cognitive assessments recorded at [facility] and [facility] ([facility]VA Functional Magnolia Measurement (FIM) Scale: 1 = Total Assistance (Subject = 0% +), 2 = Maximal Assistance (Subject = 25% +), 3 = Moderate Assistance (Subject = 50% +), 4 = Minimal Assistance (Subject = 75% +), 5 = Supervision, 6 = Modified Magnolia (Device), 7 = Complete Magnolia (Timely, Safely). Assessment Date/Time Source Assessment Type Assessment Skill Assessment Score Assessment Details No data available for this section
--- OUTSIDE RECORDS SUMMARY | 2025-03-30 08:15 | XMS_ITS | Clinical Summary ---
Author Organization [address] [place] [address] Address [address] [place] [address] Phone Care Team Providers Care Process Description Writer Name Role Phone Cade Robledo Primary Care Provider Encounters Date Type Department Care Team Description 03/09/2025 10:30 AM EDT Consult Gastroenterology - [address] [phone] Kim Bolanos NP Slow transit constipation (Primary Dx) 02/16/2025 Telephone Gastroenterology - [address] [phone] Mendez Barton MD from Last 3 Months Social History Tobacco Use Types Packs/Day Years Used Date Smoking Tobacco: Never Assessed Comments Unknown Sex and Gender Information Value Date Recorded Sex Assigned at Not on file Legal Sex Female 10:02 AM EDT Gender Identity Not on file Sexual Orientation Not on file Last Filed Vital Signs Vital Sign Reading Time Taken Comments Blood Pressure - - Pulse - - Temperature - - Respiratory Rate - - Oxygen Saturation - - Inhaled Oxygen Concentration - - Weight 107 kg (235 lb) 03/09/2025 10:25 AM EDT Height 170.2 cm (5' 7 ) 03/09/2025 10:25 AM EDT Body Mass Index 36.81 03/09/2025 10:25 AM EDT Plan of Treatment Health Maintenance Due Date Last Done Comments Hepatitis B Vaccines (1 of 3 - 19+ 3-dose series) 2008 Cervical Cancer Screening: P ap Smear 2010 DTaP,Tdap,and Td Vaccines (2 - Td or Tdap) 10/08/2021 10/08/2011 COVID-19 Vaccine (1 - 2024-2 5 season) 2024 Cholesterol Screening (Lipid Panel) 02/17/2025 Depression Screening 02/17/2025 HIV Screening 02/17/2025 Hepatitis C Screening 02/17/2025 Social Influencers of Health Screening 02/17/2025 Influenza Vaccine Completed 12/28/2024, 10/08/2011 HIB Vaccines Aged Out No longer eligi [...] age to complete this topic Meningococcal B Vaccine Aged Out No l onger eligible based on patient's age to complete this topic Pneumococcal Vaccine: Pediatrics (0 to 5 Years) and At-Risk Patients (6 to 64 Years) Aged Out No longer eligible b ased on patient's age to complete this topic RSV Immunization Patients Under 20 months Aged Out No longer eligible b ased on patient's age to complete this topic Varicella Vaccines Aged Out No longer eligible based on patient's age to complete this topic Insurance [facility] on file Care Teams Process Description Writer Relationship Specialty Start Date End Date Cade Robledo PA [address] [place] [phone] PCP - General Physician Inside Meter Tester 02/16/25
--- OUTSIDE RECORDS SUMMARY | 2025-03-30 08:16 | XMS_ITS | Continuity of Care Document ---
Author Organization [facility] Address [address] [place] [address] Phone Care Team Providers Care Legal Secretary Receptionist Name Role Phone Lab Xray, Lab Xray Unavailable Unavailable Procedures Procedure Date Void Ticket Advance Directives Directive Yes / No Effective Date File Name No Information Encounters Encounter Description Practice Location Reason(s) For Visit Diagnoses Date Provider Providers Copied on Encounter [facility], [address], [place], [place], [id number], [place] tel:[phone] [facility] No Information 1200 9 Lab Xray [...]
[2025-03-30 10:43] LABS: Hematocrit 37.4 % (37.0-47.0); Hemoglobin 12.5 g/dl (12.0-16.0); Mean Corpuscular HGB Conc 33.4 g/dl (31.0-35.0); Mean Corpuscular Hemoglobin 31.8 pg (27.0-33.0); Mean Corpuscular Volume 95.2 fL (80.0-98.0); Mean Platelet Volume 10.9 fL (9.4-12.3); Platelet Count 327 X10*3/uL (160-400); Red Blood Count 3.93 X10*6/uL (4.20-5.50); Red Cell Distribution Width 12.9 % (11.0-16.0); White Blood Count 6.1 X10*3/uL (4.8-10.8)
[2025-03-30 11:27] LABS: Alanine Aminotransferase 9 U/L (0-31); Albumin Level 4.3 g/dL (3.5-5.0); Alkaline Phosphatase 93 U/L (39-117); Anion Gap 10 (12-20); Aspartate Amino Transferase 20 U/L (5-31); Bilirubin Total 0.7 mg/dL (0.0-1.0); Blood Urea Nitrogen 7 mg/dL (9-16); Calcium 9.4 mg/dL (8.4-10.2); Carbon Dioxide 28 mmol/L (22-29); Chloride 105 mmol/L (96-108); Estimated Glomerular Filt Rate > 60; Glucose Fasting 105 mg/dL (60-99); Potassium 4.1 mmol/L (3.3-5.1); Sodium 139 mmol/L (135-145); Total Protein 7.1 g/dL (6.5-8.0)
[2025-03-31 21:09] LABS: Transglutaminase Ab IgG <1.0 U/mL; Transglutaminase IgA <1.0 U/mL
[2025-04-03 15:04] LABS: Testosterone, Total 22 ng/dL (2-45)
== END 2025-03-30 08:10 | disposition home or self-care (01) ==
LOC: HO.HMGCLDS 08:09
PROVIDERS: PCP Physician Assistant; Visit Provider Physician Assistant
DX: Z13.1 Encounter for screening for diabetes mellitus (principal); N80.9 Endometriosis, unspecified; R14.0 Abdominal distension (gaseous)
CPT/HCPCS: 36415; 80053; 84402; 84403; 85027; 86364; 87338

== ENCOUNTER 2025-05-21 07:53 | Outpatient (AMB) | payer OTHER, SELFPAY ==
--- NOTE | 2025-05-21 08:07 | A.OFFVIS_ITS ---
Vital Signs 05/21/25 08:10 Height 5 ft 7 in Weight 227 lb BMI 35.5 BP 108/56 L Blood Pressure Location Rt brachial Position Sitting Pulse 78 Pulse Source Pulse Oximeter Pulse Oximetry (%) 98 Oxygen Delivery Method Room Air Intake Visit Reasons: Constipation Intake Note: New patient for initial eval of constipation. CC; C.O. Nausea, GERD, constipation, lack of appetite, LLQ pain, bloating and abd distention. Pt reports taking omeprazole, miralax, dulcolax, pre and probiotics attempted to this point with mixed results. Onset Dec 2024. Pt originally tried seeing [facility] March 09 2025 but did not have a positive experience which is what lead her to seek care from our office today. Glass Bead Maker Required: No Accompanied by: Self / Same As Patient Allergies hydrocodone Adverse Reaction (Intermediate, Verified 02/16/25 09:20) Upset stomach HPI HPI Constipation: Details: [age] year old female with past medical history of constipation, pelvic floor dysfunction, endometriosis, transaminitis, obesity, GHB, MDD, ADHD is here today for initial consultation. Patient was seen by GI at [facility] in February of this year. Patient is here for 2nd opinion. Patient had colonoscopy and upper endoscopy in October of 2021. Patient reports that she had her prep. Patient was unable to finish her prep. Patient reports that she was told to stop senna and Colace and take MiraLax daily or twice a day. Patient changed her diet. She continues to have constipation and some days and some days she might have loose stools, however most constipation. Patient feels like she does not empty her bowels when she goes to the bathroom. Patient reports abdominal bloating sometimes not related to meals. Patient denies melena, hematochezia. Positive family history of CRC. Patient also reports acid reflux and epigastric pain. Patient reports acid reflux within without food. Currently she is taking low dose of omeprazole [id number], however does not feel like it is working. PCP did H pylori testing which was negative and negative celiac study. 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) Sexual orientation: Straight/Heterosexual Gender identity: Female Cognitive needs: No Hearing needs: No Vision needs: Yes (glasses) Female Reproductive History Menstrual Age of Menarche: 12 Review of Systems Const Denies weight gain and Denies weight loss ENT Reports no additional complaints, Denies dysphagia and Denies odynophagia Card Reports no additional complaints Resp Reports no additional complaints GI Reports abdominal pain (epigastric), Denies belching, Denies melena, Reports bloating, Denies change in bowel habits, Reports constipation, Denies dysphagia, Denies excessive flatus, Reports dyspepsia, Reports heartburn, Denies diarrhea, Denies loose stools, Reports nausea, Denies odynophagia and Denies vomiting Reports no additional complaints Musc Reports no additional complaints Neuro Reports no additional complaints Psych Reports no additional complaints Endo Reports no additional complaints Physical Exam Vital Signs: Last Vital Signs Pulse 78 05/21/25 08:10 BP 108/56 L 05/21/25 08:10 Pulse Ox 98 05/21/25 08:10 Oxygen Delivery Method Room Air 05/21/25 08:10 BMI result Body Mass Index 35.5 Const General: healthy appearing, no acute distress and well developed Nutritional Appearance: well nourished Orientation/consciousness: patient oriented x3 Resp Effort & Inspection: normal respiratory effort, able to speak in complete sentences, no tracheal deviation and symmetric chest movement Auscultation: clear to auscultation bilaterally Cardio Rate: regular rate GI Inspection: Yes normal to inspection and No distended Palpation (GI): Soft to palpation, not firm, nontender and No hepatosplenomegaly present Auscultation: normal bowel sounds General: Yes no CVA tenderness Back/Spine/Pelvis Back: no CVA tenderness Skin General skin exam: elasticity normal, turgor normal and dry skin Neuro General: patient oriented x3 Psych Appearance: grossly normal Mental Status: mental status grossly normal Assessment & Plan Assessment & Plan (1) Nausea: Code(s): R11.0 - Nausea Category: Medical (2) Elevated LFTs: Code(s): R79.89 - Other specified abnormal findings of blood chemistry Category: Medical (3) Constipation: Code(s): K59.00 - Constipation, unspecified Category: Medical Qualifiers: Constipation type: other constipation type Qualified Code(s): K59.09 - Other constipation (4) Bloating: Code(s): R14.0 - Abdominal distension (gaseous) Category: Medical (5) GERD (gastroesophageal reflux disease): Code(s): K21.9 - Gastro-esophageal reflux disease without esophagitis Qualifiers: Esophagitis presence: esophagitis presence not specified Qualified Code(s): K21.9 - Gastro-esophageal reflux disease without esophagitis (6) Postprandial epigastric pain: Code(s): R10.13 - Epigastric pain Plan Patient reports epigastric pain postprandially and sometimes even without having any meals. Will check lipase, patient will start taking pantoprazole 40 mg half an hour before breakfast. Avoid dietary triggers late night snacking. Staying upright for minimal 3 hours after meals discussed with patient. Will check vitamin D, thyroid study and vitamin-B 12 and folate. Will send patient for upper GI with barium swallow to evaluate for reflux. Long discussion with patient about fiber supplements and also low FODMAP diet. List of food recommended as well as list of food to avoid given to patient. Patient will follow-up in our office in 3 months. She was encouraged to call if she will have worsening GI symptoms. Patient is agreeable to this plan and verbalizes understanding of instructions. She was given the opportunity to ask questions and all questions answered. Thank you for allowing me to participate in her care Orders: Orders Lipase Today R10.9 - Unspecified abdominal pain Vitamin D 25-OH (D2 and D3) Today E55.9 - Vitamin D deficiency, unspecified [place] upper GI w Ba Swallow Today K21.9 - Gastro-esophageal reflux disease without esophagitis TSH reflex Free T4 Today K59.00 - Constipation, unspecified Vitamin B12 and Folate Today R19.7 - Diarrhea, unspecified Medications: New pantoprazole take one tablet half an hour before breakfast 40 mg PO DAILY 30 tabs 3RF K21.9 - Gastro-esophageal reflux disease without esophagitis Coding Level of Care Code New Pt Level 4 (11853) Diagnoses Nausea R11.0 Elevated LFTs R79.89 Other constipation K59.09 Constipation type: other constipation type Bloating R14.0 Gastroesophageal reflux disease, unspecified whether esophagitis present K21.9 Esophagitis presence: esophagitis presence not specified Postprandial epigastric pain R10.13 Time Spent (min) 50 Comment 35 minutes spent with patient and additional 15 minutes spent reviewing her records
[2025-05-21 08:10] VITALS: BP 108/56; PULSE 78; O2SAT 98; BMI 35.5
== END 2025-05-21 08:35 | disposition home or self-care (01) ==
LOC: HO.HGI 07:54
PROVIDERS: PCP Physician Assistant; Visit Provider Nurse Practitioner Family
DX: R11.0 Nausea (principal); R79.89 Other specified abnormal findings of blood chemistry; K59.09 Other constipation; R14.0 Abdominal distension (gaseous); K21.9 Gastro-esophageal reflux disease without esophagitis; R10.13 Epigastric pain
CPT/HCPCS: 99204

== ENCOUNTER → 2025-05-21 07:53 | Outpatient (BNVA) | payer OTHER, SELFPAY | PROVIDERS: PCP Physician Assistant; Visit Provider Nurse Practitioner Family | DX: K59.09 Other constipation (principal); K21.9 Gastro-esophageal reflux disease without esophagitis; R11.0 Nausea; R79.89 Other specified abnormal findings of blood chemistry; R14.0 Abdominal distension (gaseous); R10.13 Epigastric pain | CPT/HCPCS: 99202 ==

== ENCOUNTER 2025-05-24 13:18 | Outpatient (AMB) | payer OTHER, SELFPAY ==
--- NOTE | 2025-05-24 13:30 | MHC.PC.OV ---
Vital Signs 05/24/25 13:32 Height 5 ft 7 in Weight 225 lb 4 oz BMI 35.3 BP 118/70 Blood Pressure Location Lt brachial Position Sitting Pulse 85 Pulse Source Pulse Oximeter Temp 97.7 F Temp Source Temporal Artery Scan Pulse Oximetry (%) 97 Oxygen Delivery Method Room Air Intake Visit Reasons: pe Precipitator Supervisor Required: No Accompanied by: Self / Same As Patient Allergies hydrocodone Adverse Reaction (Intermediate, Verified 05/24/25 13:40) Upset stomach Medication List - Last Reconciled 05/24/25 by Cade Robledo PA-C bupropion HCl XL (Wellbutrin XL) 300 mg PO QAM 30 days buspirone 10 mg PO BID clonidine HCl 0.2 mg PO BEDTIME 90 days lamotrigine mg PO methylphenidate HCl ER (Concerta) 36 mg PO DAILY 28 days ondansetron 8 mg PO Q12H PRN 15 days pantoprazole 40 mg PO DAILY Tobacco use date assessed: 12/28/24 Dental Screening Dental Screen Date: 12/28/24 HPI pe HPI Details Patient is a 34-year-old female here today for a routine annual physical Patient has a past medical history significant for anxiety, major depressive disorder, obesity, endometriosis. . ADHD :Recently established care with a psychiatrist whom diagnosed her with ADHD and started gabapentin and clonidine. Unfortunately she has side effects to gabapentin and clonidine. She has been started on Concerta recently which has helped her with her attention focused quite significantly. She unfortunately started to have some GI symptoms namely constipation and bloating. She follow up with urgent care and has been started on stool softener laxatives. .. Constipation/abdominal bloating: Has recently follow up with GI and will be going for an upper GI series. She was advised to do FODMAP diet and keep a food diary. She was started on pantoprazole as a trial.. Of note has continue with GI symptoms even off of conserta Endometriosis: Has had a full hysterectomy with a partial oophorectomy. She reports she has been doing well as far as her pelvic pain though has noted some hormonal changes and will like hormones to be checked. .. MDD/ XIOMARA: Patient continues on Wellbutrin and buspirone which have been very helpful for her mental health. Obesity: She does understand her BMI is over 30 will work on being more physically active and adapting to better eating habits to reduce her weight. 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 here in [place]- PAP within normal limits PFSH Medical History (Updated 05/25/25 @ 07:19 by Cade Robledo PA-C) Sigmoid diverticulosis Surgical History H/O: hysterectomy No pertinent past surgical history Family History Paternal Grandmother Colon cancer Social History Household Members: Spouse and Children Housing: House (town house) Alcohol intake: current Alcohol intake frequency: holidays/special occasions only Patient Tobacco Use Status: Former Tobacco user e-Cigarette/Vaping Use: Never Used Second Hand Smoke Exposure: No service: No 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 1. Little interest or pleasure in doing things: several days 2. Feeling down, depressed, or hopeless: several days 3. Trouble falling or staying asleep, or sleeping too much: more than half the days 4. Feeling tired or having little energy: more than half the days 5. Poor appetite or overeating: more than half the days 6. Feeling bad about yourself - or that you are a failure or have let yourself or your family down: not at all 7. Trouble concentrating on things, such as reading the newspaper or watching television: more than half the days 8. Moving or speaking so slowly that other people could have noticed. Or the opposite - being so fidgety or restless that you have been moving around a lot more than usual: not at all 9. Thoughts that you would be better off or of hurting yourself in some way: not at all Total score: 10 Depression Screening Interpretation: Positive Depression Screening Follow-up: Existing condition and In treatment Depression Screening Done: Yes 44293 - PHQ-9 Billing: Yes Source: Developed by Drs. Isaac Hale, Zan Ugalde and colleagues, with an educational ricky from [employer]. Thrive Questionnaire Date Thrive assessed: 05/24/25 I am a: Patient What is your living situation today?: I have a steady place to live Within the past 12 months, did the food you bought not last and you didn't have the money to get more?: Never true Within the past 12 months, did you worry whether your food would run out before you got money to buy more?: Never true Do you have trouble paying for medicines?: No Do you have trouble getting transportation to medical appointments?: No Do you have trouble paying your heating and electricity bill?: No Do you have trouble taking care of your child, family member or friend?: No Do you have trouble with day-to-day activities such as bathing, preparing meals, shopping, managing finances, etc.?: No Are you currently unemployed and looking for a job?: I choose not to answer this question Are you interested in more education?: I choose not to answer this question Please select the resources that you would like help with: None Currently or been in a relationship where the following occur: No concerns reported THRIVE Score: 0 AUDIT C Alcohol Use Questionnaire (AUDIT-C) 1. How often do you have a drink containing alcohol?: Monthly or less Total Score: 1 XIOMARA-7 AMB Questionnaire XIOMARA-7 Date XIOMARA - 7 assessed: 05/24/25 Feeling nervous, anxious, or on edge: 1 = Several days Not being able to stop or control worryin = Several days Worrying too much about different things: 1 = Several days Trouble relaxin = More than half the days Being so restless that it is hard to sit still: 2 = More than half the days Becoming easily annoyed or irritable: 2 = More than half the days Feeling afraid as if something awful might happen: 0 = Not at all Total XIOMARA-7 score (0-4 normal; 5-9 mild; 10-14 moderate; 15-21 severe): 9 Source: Developed by Teagan Hernandez Kurt Kroenke and colleagues, with an educational ricky from [employer]. XIOMARA-7 Assessment Billing XIOMARA-7 Assessment Tool: XIOMARA-7 Assessment 38876 Review of Systems Const Denies body aches, Denies chills, Denies excessive sweating, Denies fatigue, Denies fever(s) and Denies headache(s) Eyes Denies blurry vision ENT Denies dysphagia, Denies vertigo, Denies dizziness, Denies headache(s), Denies hearing loss and Denies tinnitus Card Denies chest pain, Denies chest pain with activity, Denies syncope, Denies irregular heart rhythm and Denies dyspnea Resp Denies chest congestion, Denies cough, Denies hemoptysis, Denies dyspnea and Denies wheezing GI Denies abdominal pain, Denies melena, Denies hematochezia, Denies coffee ground emesis, Denies dysphagia, Denies diarrhea, Denies nausea and Denies vomiting Denies urinary frequency, Denies dysuria, Denies urinary hesitancy and Denies urinary urgency Musc Denies arthralgias, Denies limited range of motion, Denies muscle cramps and Denies muscle weakness Skin/Breast Denies rash and Denies skin ulcer Neuro Denies Abnormal speech present, Denies confusion, Denies vertigo, Denies dizziness, Denies syncope, Denies headache(s), Denies memory loss and Denies seizure-like activity Psych Denies anxiety, Denies confusion, Denies depression, Denies memory loss, Denies panic attacks and Denies paranoia Endo Denies excessive sweating, Denies fatigue, Denies flushing, Denies polydipsia and Denies polyuria Aller/Immun Denies wheezing Physical exam (Primary Care) Vital Signs: Last Vital Signs Temp 97.7 F 05/24/25 13:32 Pulse 85 05/24/25 13:32 BP 118/70 05/24/25 13:32 Pulse Ox 97 05/24/25 13:32 Oxygen Delivery Method Room Air 05/24/25 13:32 BMI result Body Mass Index 35.3 BMI Assessment/Plan discussion: High BMI High, discussed plan: lifestyle, weight reduction, dietary and physical activity Tobacco/Smoking Status: Tobacco use Status Tobacco use date assessed 12/28/24 05/24/25 13:31 Patient Tobacco Use Status Former Tobacco user 05/24/25 13:31 e-Cigarette/Vaping Use Never Used 05/24/25 13:31 PHQ-9: PHQ-9 Score PHQ-9: Total score 10 05/24/25 14:32 Depression Screening Interpretation: Positive Depression Screening Follow-up: Existing condition and In treatment Thrive Assessment: Date of Thrive Assessment Date Thrive assessed 05/24/25 05/24/25 13:31 Currently or been in a relationship where the following occur: No concerns reported Const General: cooperative, comfortable, no acute distress, alert and awake; No confusion Orientation/consciousness: oriented to person, oriented to place, patient oriented x3 and No confusion HENMT Head: Yes normocephalic Ears: external ears normal and TM's normal bilaterally Face and sinus: No sinus tenderness Mouth: Normal oral and palatal mucosa present and tongue normal Teeth and gingiva: dentition normal and gingiva normal Throat: Yes posterior oropharynx normal, Yes tonsils normal and Yes uvula midline Eyes Conjunctivae: conjunctivae normal Sclerae: sclerae normal Pupils: Equal, round and reactive pupils present EOM: EOMs intact bilaterally Direct Ophthalmoscopy: No no photophobia Neck Neck: Yes no lymphadenopathy, No tender and Yes no JVD Thyroid: Thyroid normal Carotids: no bruits Chest Chest palpation & inspection: no tenderness Resp Effort & Inspection: normal respiratory effort, no audible wheezes, not labored and no stridor Auscultation: no crackles, no rales, no rhonchi and no wheezes Cardio Jugular venous distension: no JVD Rate: regular rate, not bradycardic and not tachycardic Rhythm: regular rhythm Bruits: no carotid bruits Peripheral pulses: Peripheral pulses 2+ throughout GI Inspection: Yes normal to inspection, No abdominal wall ecchymosis and No visible herniation Palpation (GI): Soft to palpation, nontender, no guarding, not rigid and No hepatosplenomegaly present Auscultation: normoactive bowel sounds General: Yes no CVA tenderness Back/Spine/Pelvis Back: no CVA tenderness and No back tenderness Cervical Spine: cervical ROM normal Thoracic/Lumbar Spine: thoracic and lumbar spine normal to inspection, straight leg raise negative bilaterally, No thoraco-lumbar ROM limited and No lumbar spinal tenderness Skin Lesions: no lesions Rashes: no rashes Wounds: no wounds Neuro General: oriented to person, oriented to place, patient oriented x3, CN's II-XI intact bilaterally and No confusion Cranial nerves: Yes Equal, round and reactive pupils present and Yes Normal accommodation reflex present Cognition (Neuro): normal cognition Speech: No Abnormal speech present Gait exam (Neuro): Normal gait present Motor exam (neuro): 5/5 motor strength present throughout Extrem Right upper extremity: full ROM; no cyanosis Left upper extremity: full ROM; no cyanosis Right lower extremity: no edema Left lower extremity: no edema Psych Appearance: grossly normal Mental Status: mental status grossly normal Affect: normal affect Attitude: cooperative Thought process: Normal thought process present Coding Level of Care Code Est Pt Prev Care 18-39y(38765) Diagnoses Annual physical exam Z00.00 Attention deficit hyperactivity disorder (ADHD), predominantly inattentive type F90.0 Attention deficit-hyperactivity disorder type: predominantly inattentive Other constipation K59.09 Constipation type: other constipation type Bloating R14.0 Class 2 obesity E66.812 MDD (major depressive disorder), recurrent episode, moderate F33.1 Additional Codes XIOMARA-7 Assessment Billing - XIOMARA-7 Assessment Tool: XIOMARA-7 Assessment 85454 ([id number]) PHQ-9 - 66390 - PHQ-9 Billing: Yes ([id number]) Assessment & Plan Assessment & Plan (1) Annual physical exam: Code(s): Z00.00 - Encounter for general adult medical examination without abnormal findings Category: Medical Plan: As per HPI (2) ADHD: Code(s): F90.9 - Attention-deficit hyperactivity disorder, unspecified type Category: Medical Qualifiers: Attention deficit-hyperactivity disorder type: predominantly inattentive Qualified Code(s): F90.0 - Attention-deficit hyperactivity disorder, predominantly inattentive type Plan: Patient has followed up with a psychiatrist and underwent clinical evaluation for ADHD and was diagnosed with ADHD diagnosis. Was started on gabapentin and clonidine though has had intolerable side effects of this medication. She has previously on Concerta 56 mg which did help her attention focus though was off of it for now due to potential GI side effects. Will consider restarting this medication.. She would like to continue this medication for now. (3) Constipation: Code(s): K59.00 - Constipation, unspecified Category: Medical Qualifiers: Constipation type: other constipation type Qualified Code(s): K59.09 - Other constipation Plan: Has followed up with we will gastroenterology and is due for an upper GI series. She is trying pantoprazole has a trial. There was thought that the stimulant medication was causing the abdominal bloating constipation though has stopped the medication for 1 month and still has symptoms. (4) Bloating: Code(s): R14.0 - Abdominal distension (gaseous) Category: Medical Plan: As above (5) Class 2 obesity: Code(s): E66.812 - Obesity, class 2 Category: Medical Plan: Patient does understand her BMI is over 35 will work on being more physically active and adapting to better eating habits to reduce her weight. (6) MDD (major depressive disorder), recurrent episode, moderate: Code(s): F33.1 - Major depressive disorder, recurrent, moderate Category: Medical Plan: Patient's PHQ-9 score positive for depression which has been existing condition for her. Currently speaking with a psychiatrist and a mental health therapist at this time in his managed fairly well with mental health medications Orders: Orders Complete Blood Count no Diff 05/24/25 Z13.1 - Encounter for screening for diabetes mellitus Comprehensive [place]. Panel Fast 05/24/25 Z13.1 - Encounter for screening for diabetes mellitus
[2025-05-24 13:32] VITALS: BP 118/70; PULSE 85; TEMP 36.5; O2SAT 97; BMI 35.3
--- OUTSIDE RECORDS SUMMARY | 2025-05-24 13:46 | XMS_ITS | Clinical Summary ---
Author Organization [address] [facility] Address [address] [place] [address] Phone Care Team Providers Care International Trade Teacher Name Role Phone Cade Robledo Primary Care Provider Encounters Date Type Department Care Team Description 03/09/2025 10:30 AM EDT Consult Gastroenterology - [address] [id number] Kim Bolanos, JAYRO Slow transit constipation (Primary Dx) from Last 3 Months Social History Tobacco [...] Screening: P ap Smear 2010 COVID-19 Vaccine ( - 2023-2 5 season) 2024 Cholesterol Screening (Lipid Panel) 02/17/2025 Depression Screening 02/17/2025 HIV Screening 02/17/2025 Hepatitis C Screening 02/17/2025 Social Influencers of Health Screening 02/17/2025 Influenza Vaccine Completed 12/28/2024 HIB Vaccines Aged Out No longer eligi [...] to 64 Years) Aged Out No longer eligi ble based on patient's age to complete this topic RSV Immunization Patients Un merced 20 months Aged Out No longer eligible b ased on patient's age to complete this topic Varicella Vaccines Aged Out No longer eligible based on patient's age to complete this topic Insurance [facility] on file Care Teams International Trade Teacher Relationship Specialty Start Date End Date Cade Robledo PA PCP - General Physician Adjunct Sociology Professor 02/16/25
== END 2025-05-24 13:54 | disposition home or self-care (01) ==
LOC: HO.HMCH 13:19
PROVIDERS: PCP Physician Assistant; Visit Provider Physician Assistant
DX: Z00.00 Encounter for general adult medical examination without abnormal findings (principal); F33.1 Major depressive disorder, recurrent, moderate; E66.812 Obesity, class 2; Z68.35 Body mass index [BMI] 35.0-35.9, adult; R14.0 Abdominal distension (gaseous); F90.0 Attention-deficit hyperactivity disorder, predominantly inattentive type; K59.09 Other constipation

== ENCOUNTER → 2025-05-24 13:18 | Outpatient (BNVA) | payer OTHER, SELFPAY | PROVIDERS: PCP Physician Assistant; Visit Provider Physician Assistant | DX: Z00.00 Encounter for general adult medical examination without abnormal findings (principal); F90.0 Attention-deficit hyperactivity disorder, predominantly inattentive type; K59.09 Other constipation; R14.0 Abdominal distension (gaseous); E66.812 Obesity, class 2; Z68.35 Body mass index [BMI] 35.0-35.9, adult; F33.1 Major depressive disorder, recurrent, moderate; Z71.3 Dietary counseling and surveillance | CPT/HCPCS: 96127 ==

== ENCOUNTER 2025-05-27 08:31 | Outpatient (REF) | payer OTHER, SELFPAY ==
--- OUTSIDE RECORDS SUMMARY | 2009-07-05 11:40 | XMS_ITS | Continuity of Care Document ---
Author Organization [facility] Address [address] [place] [address] Phone Care Team Providers Care Coffee Attendant Name Role Phone Lab Xray, Lab Xray Unavailable Unavailable Procedures Procedure Date Void Ticket Advance Directives Directive Yes / No Effective Date File Name No Information Encounters Encounter Description Practice Location Reason(s) For Visit Diagnoses Date Provider Providers Copied on Encounter [facility], [address], [place], [place], [id number], [place] tel:[phone] No Information 1 9 Lab Xray Lab Xray. . Family History Family Member Type Diagnosis Age At Onset No Information Payers Payer name Insurance type Covered constitution party ID Authoriza tion(s) No Information Social History Type Description Quantity Date Captured Comments Sex Female Smoking Status No Information Chief Complaint And Reason For Visit No Information Reason For Referral Reason For Referral No Information History Of Present Illness Encounter Date Complaint History Of Prese nt Illness No Information Functional Status Date Functional Assessmen t No Information Instructions Date Instruction Additional Infor mation No Information Assessments Type Assessment Date No Information Patient Care Teams Name Effective Dates (start - stop) Status Members No Information
--- OUTSIDE RECORDS SUMMARY | 2025-05-27 08:38 | XMS_ITS | Clinical Summary ---
Author Organization 175 [facility] Address [address] [place] [address] Phone Care Team Providers Care Rail Bonder Name Role Phone Cade Robledo Primary Care Provider Encounters Date Type Department Care Team Description 03/09/2025 10:30 AM EDT Consult Gastroenterology - [address] [phone] Kim Bolanos, JAYRO Slow transit [...] patient's age to complete this topic Insurance [facility] on file Care Teams Rail Bonder Relationship Specialty Start Date End Date Cade Robledo PA PCP - General Physician Gang Miner 02/16/25
[2025-05-27 10:35] LABS: Lipase 22 U/L (8-78)
[2025-05-27 11:30] LABS: Folate 6.4 ng/mL (> or = 4.0); Vitamin B12 378 pg/mL (200-900)
[2025-05-31 12:03] LABS: Vitamin D 25-OH, D2 <4 ng/mL; Vitamin D 25-OH, D3 24 ng/mL; Vitamin D 25-OH, Total 24 ng/mL (30-100)
== END 2025-05-27 08:32 | disposition home or self-care (01) ==
LOC: HO.HMGCLDS 08:31
PROVIDERS: PCP Physician Assistant; Visit Provider Nurse Practitioner Family
DX: R10.9 Unspecified abdominal pain (principal); K59.00 Constipation, unspecified; R19.7 Diarrhea, unspecified; E55.9 Vitamin D deficiency, unspecified
CPT/HCPCS: 36415; 82306; 82607; 82746; 83690; 84443

== ENCOUNTER 2025-09-15 08:48 | Outpatient (REF) | payer OTHER, SELFPAY ==
--- NOTE | ~2025-09-15 | FL_ITS ---
EXAMINATION: XR UPPER GI SERIES WITH barium swallow CLINICAL INFORMATION: K21.9 - Gastro-esophageal reflux disease without esophagitis COMPARISON: None available. TECHNIQUE: The patient was administered thin and thick barium and effervescent granules. Barium tablet was also administered. FINDINGS: The swallowing mechanism is normal. No aspiration or penetration. Esophageal motility is normal. No esophageal hernia or reflux is seen. No mass or stricture. Question mild mucosal irregularity/mild esophagitis of the mid and distal thoracic esophagus. Temporary stasis of the barium tablet in the mid thoracic esophagus. Stomach and duodenum are normal appearing. No fold thickening, mass, ulcer or stricture is seen. FLUOROSCOPY TIME: 1 minute 17 seconds DOSE AREA PRODUCT: 1209 uGy-m2 (microgray-meter squared) FL/FL upper GI w air w Ba Swallow IMPRESSION: Question mild esophagitis of the mid and distal thoracic esophagus. Otherwise unremarkable exam. No gastroesophageal reflux seen. Electronically signed by: Ashlyn Johnson MD 09/15/2025 09:25 AM EDT
--- OUTSIDE RECORDS SUMMARY | 2025-09-15 09:26 | XMS_ITS | Clinical Summary ---
Author Organization 175 [facility] Address [address] [place] [address] Phone Care Team Providers Care Bridge Carpenter Name Role Phone Cade Robledo Primary Care Provider Social History Tobacco Use Types Packs/Day Years [...] Cervical Cancer Screening: P ap Smear 2010 HPV Vaccines (1 - 3-dose SCD M series) 2016 Depression Screening 11/25/2024 Cholesterol Screening (Lipid Panel) 02/17/2025 HIV Screening 02/17/2025 Hepatitis C Screening 02/17/2025 Social Influencers of Health Screening 02/17/2025 COVID-19 Vaccine (1 - 2023-2 5 season) 2025 Influenza Vaccine (#1) 2025 12/28/2024 RSV Immunization Adult Patie nts (1 - 1-dose 75+ series) 2064 HIB Vaccines Aged Out No longer eligi [...] 5 Years) and At-Risk Patients (6 to 49 Years) Aged Out No longer eligi ble based on patient's age to complete this topic RSV Immunization Patients Un merced 20 months Aged Out No longer eligible b ased on patient's age to complete this topic Varicella Vaccines Aged Out No longer eligible based on patient's age to complete this topic Insurance [facility] Care Teams Bridge Carpenter Relationship Specialty Start Date End Date Cade Robledo PA PCP - General Physician Canal Structure Operator 02/16/25
== END 2025-09-15 08:49 | disposition home or self-care (01) ==
LOC: HO.XRAY 08:48
PROVIDERS: PCP Physician Assistant; Visit Provider Nurse Practitioner Family
DX: K21.9 Gastro-esophageal reflux disease without esophagitis (principal)
CPT/HCPCS: 74246

== ENCOUNTER → 2025-09-15 08:52 | Outpatient (BNV) | payer OTHER, SELFPAY | PROVIDERS: PCP Physician Assistant; Visit Provider Radiology Diagnostic Radiology | DX: K21.9 Gastro-esophageal reflux disease without esophagitis (principal) | CPT/HCPCS: 74246 ==

== ENCOUNTER 2025-09-28 11:15 | Outpatient (AMB) | payer OTHER, SELFPAY ==
--- NOTE | 2025-09-28 11:22 | A.OFFVIS_ITS ---
Vital Signs 09/28/25 11:23 Height 5 ft 7 in Weight 225 lb BMI 35.2 BP 100/60 Blood Pressure Location Rt brachial Position Sitting Pulse 84 Pulse Source Pulse Oximeter Pulse Oximetry (%) 98 Oxygen Delivery Method Room Air Intake Visit Reasons: Last GI Appt. [place] of state. Intake Note: Est patient for mgmt of constipation + GERD. Pt is going to be moving out of [facility] and is following up for one final visit prior to transfer of care. CC; C.O. intermittent constipation and bloating persistence. Pt states that she is still taking PPI which is still effective for her. Did have one isolated episode of GERD sx but denies any additional concerns. Pt is moving to [facility]. [employer] Required: No Accompanied by: Self / Same As Patient Allergies hydrocodone Adverse Reaction (Intermediate, Verified 05/24/25 13:40) Upset stomach HPI HPI Last GI Appt. Pt moving out of state.: Details: LAST VISIT: Nausea Elevated LFTs Constipation Bloating GERD (gastroesophageal reflux disease) Postprandial epigastric pain Plan Patient reports epigastric pain postprandially and sometimes even without having any meals. Will check lipase, patient will start taking pantoprazole 40 mg half an hour before breakfast. Avoid dietary triggers late night snacking. Staying upright for minimal 3 hours after meals discussed with patient. Will check vitamin D, thyroid study and vitamin-B 12 and folate. Will send patient for upper GI with barium swallow to evaluate for reflux. Long discussion with patient about fiber supplements and also low FODMAP diet. List of food rec ommended as well as list of food to avoid given to patient. Patient will follow- up in our office in 3 months. She was encouraged to call if she will have worsening GI symptoms. Patient is agreeable to this plan and verbalizes understanding of instructions. She was given the opportunity to ask questions and all questions answered. ? Thank you for allowing me to participate in her care Orders Lipase Today R10.9 Vitamin D 25-OH (D2 and D3) Today E55.9 FL upper GI w Ba Swallow Today K21.9 TSH reflex Free T4 Today K59.00 Vitamin B12 and Folate Today R19.7 New pantoprazole take one tablet half an hour before breakfast 40 mg PO DAILY 30 tabs 3RF K21.9 TODAY'S VISIT Patient is here today for follow-up. Patient reports that since last visit she has been doing better. Significant improvement in epigastric pain and reflux. She is taking pantoprazole and for the most part she is feeling well. Patient does have occasional abdominal bloating and constipation. She is trying to figure out which food cause the bloating. Patient states that onion, garlic and broccoli causes bloating for her. Among other food that she has been discovering. Patient denies dyspepsia, dysphagia or odynophagia. Denies any other GI concerning symptoms. Patient will need a script for vitamin-D and pantoprazole as she is moving to [facility] with her family. 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) Sexual orientation: Straight/Heterosexual Gender identity: Female Cognitive needs: No Hearing needs: No Vision needs: Yes (glasses) Female Reproductive History Menstrual Age of Menarche: 12 Review of Systems Const Denies weight gain and Denies weight loss ENT Reports no additional complaints, Denies dysphagia and Denies odynophagia Card Reports no additional complaints Resp Reports no additional complaints GI Reports abdominal pain (epigastric, occasional), Denies belching, Denies melena, Reports bloating (Occasional), Denies change in bowel habits, Reports constipation (Occasional), Denies dysphagia, Denies excessive flatus, Denies dyspepsia, Reports heartburn (Occasional), Denies diarrhea, Denies loose stools, Denies nausea, Denies odynophagia and Denies vomiting Reports no additional complaints Musc Reports no additional complaints Neuro Reports no additional complaints Psych Reports no additional complaints Endo Reports no additional complaints Physical Exam Vital Signs: Last Vital Signs Pulse 84 09/28/25 11:23 BP 100/60 09/28/25 11:23 Pulse Ox 98 09/28/25 11:23 Oxygen Delivery Method Room Air 09/28/25 11:23 BMI result Body Mass Index 35.2 Const General: healthy appearing, no acute distress and well developed Nutritional Appearance: well nourished Orientation/consciousness: patient oriented x3 Resp Effort & Inspection: normal respiratory effort, able to speak in complete sentences, no tracheal deviation and symmetric chest movement Auscultation: clear to auscultation bilaterally Cardio Rate: regular rate GI Inspection: Yes normal to inspection and No distended Palpation (GI): Soft to palpation, not firm, nontender and No hepatosplenomegaly present Auscultation: normal bowel sounds General: Yes no CVA tenderness Back/Spine/Pelvis Back: no CVA tenderness Skin General skin exam: elasticity normal, turgor normal and dry skin Neuro General: patient oriented x3 Psych Appearance: grossly normal Mental Status: mental status grossly normal Results Reviewed Results Reviewed: Laboratory Tests 03/30/25 05/27/25 08:26 08:35 Lipase 22 Vitamin B12 378 25-OH Vitamin D Total 24 L Folate 6.4 TSH 1.44 Tiss Transglutamin IgG <1.0 Tiss Transglutamin IgA <1.0 UPPER GI AND BARRIUM SWALLOW IMPRESSION: Question mild esophagitis of the mid and distal thoracic esophagus. Otherwise unremarkable exam. No gastroesophageal reflux seen. Assessment & Plan Assessment & Plan (1) Constipation: Code(s): K59.00 - Constipation, unspecified Category: Medical Qualifiers: Constipation type: other constipation type Qualified Code(s): K59.09 - Other constipation (2) Bloating: Code(s): R14.0 - Abdominal distension (gaseous) Category: Medical (3) Nausea: Code(s): R11.0 - Nausea Category: Medical (4) Gastroesophageal reflux disease: Code(s): K21.9 - Gastro-esophageal reflux disease without esophagitis Qualifiers: Esophagitis presence: esophagitis presence not specified Qualified Code(s): K21.9 - Gastro-esophageal reflux disease without esophagitis (5) Postprandial epigastric pain: Code(s): R10.13 - Epigastric pain Plan Patient will continue them pantoprazole daily. Continue avoiding dietary triggers and late night snacking. Staying upright for minimum 3 hours after meals discussed with patient. Patient will continue taking vitamin-D. Continue low FODMAP diet and avoid dietary triggers to help with bloating. Patient will follow-up with GI specialist when she moves to [facility]. She was encouraged to call us with any questions. Patient is agreeable to current plan of care verbalizes understanding of instructions. She was given the opportunity to ask questions and all questions answered. Thank you for allowing me to participate in her care Medications: Refilled cholecalciferol (vitamin D3) 50 mcg PO DAILY 90 caps 3RF R79.89 - Other specified abnormal findings of blood chemistry pantoprazole take one tablet half an hour before breakfast 40 mg PO DAILY 90 tabs 3RF K21.9 - Gastro-esophageal reflux disease without esophagitis Coding Level of Care Code Est Pt Level 4 (98374) Complex EM visit Add On G2211 Diagnoses Other constipation K59.09 Constipation type: other constipation type Bloating R14.0 Nausea R11.0 Gastroesophageal reflux disease, unspecified whether esophagitis present K21.9 Esophagitis presence: esophagitis presence not specified Postprandial epigastric pain R10.13 Time Spent (min) 35 Comment 25 minutes spent with patient and additional 10 minutes spent reviewing her records
[2025-09-28 11:23] VITALS: BP 100/60; PULSE 84; O2SAT 98; BMI 35.2
== END 2025-09-28 12:10 | disposition home or self-care (01) ==
LOC: HO.HGI 11:15
PROVIDERS: PCP Physician Assistant; Visit Provider Nurse Practitioner Family
DX: K59.09 Other constipation (principal); R14.0 Abdominal distension (gaseous); R11.0 Nausea; K21.9 Gastro-esophageal reflux disease without esophagitis; R10.13 Epigastric pain
CPT/HCPCS: 99214; G2211

== ENCOUNTER → 2025-09-28 11:15 | Outpatient (BNVA) | payer OTHER, SELFPAY | PROVIDERS: PCP Physician Assistant; Visit Provider Nurse Practitioner Family | DX: R14.0 Abdominal distension (gaseous) (principal); K59.09 Other constipation; R11.0 Nausea; K21.9 Gastro-esophageal reflux disease without esophagitis; R10.13 Epigastric pain | CPT/HCPCS: 99212 ==